=== PATIENT | male | born 1960 | race Caucasian/White ===

== ENCOUNTER 2016-03-31 17:40 | Observation (INO) | payer OTHER ==
[~2016-03-31] VITALS: Ht 175.3 cm; Wt 88.6 kg
[2016-03-31 17:40] VITALS: BP 112/77; PULSE 99; RESP 16; TEMP 98.1; O2SAT 93
[2016-03-31] MEDS ORDERED: HYDR-3516 PO (18:43)
[2016-03-31] MEDS ORDERED: SODIUM CHLORIDE 0.9% FLUSH 5 ML FLUSH IVF PRN (19:15)
--- NOTE | 2016-03-31 19:40 | RADRPT ---
EXAM DATE/TIME: 03/31/2016 19:23 [facility] COMPARISON: No previous studies available for comparison. INDICATIONS : Altered mental status; found unresponsive. RADIATION DOSE: 39.21 CTDIvol (mGy) MEDICAL HISTORY : Hypertension. SURGICAL HISTORY : None. ENCOUNTER: Initial ACUITY: 1 day PAIN SCALE: 0/10 LOCATION: cranial TECHNIQUE: Multiple contiguous axial images were obtained of the head. Using automated exposure control and adj ustment of the mA and/or kV according to patient size, radiation dose was kept as low as reasonably a chievable to obtain optimal diagnostic quality images. FINDINGS: CEREBRUM: The ventricles are normal for age. No evidence of midline shift, mass lesion, hemorrhage or acute in farction. No extra-axial fluid collections are seen. POSTERIOR FOSSA: The cerebellum and brainstem are intact. The 4th ventricle is midline. The cerebellopontine angle i s unremarkable. EXTRACRANIAL: The visualized portion of the orbits is intact. Left parietal scalp contusion SKULL: The calvaria is intact. No evidence of skull fracture. CONCLUSION: No acute intracranial disease. Left parietal scalp contusion Ritchie Fatima MD on March 31, 2016 at 19:37 Board Certified Radiologist. This report was verified electronically.
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
--- NOTE | 2016-03-31 19:46 | RADRPT ---
EXAM DATE/TIME: 03/31/2016 19:23 [facility] COMPARISON: No previous studies available for comparison. INDICATIONS : Altered mental status; found unresponsive. RADIATION DOSE: 23.91 CTDIvol (mGy) MEDICAL HISTORY : Hypertension. SURGICAL HISTORY : None. ENCOUNTER: Initial ACUITY: 1 day PAIN SCALE: 0/10 LOCATION: neck TECHNIQUE: Volumetric scanning of the cervical spine was performed. Multiplanar reconstructions in the sagittal, coronal and oblique axial planes were performed. Using automated exposure control and adjustment o f the mA and/or kV according to patient size, radiation dose was kept as low as reasonably achievable to obtain optimal diagnostic quality images. FINDINGS: VERTEBRAE: Normal vertebral body height. No compression fracture. Multilevel degenerative changes ALIGNMENT: No evidence of subluxation. Facets are well aligned. CONCLUSION: Degenerative changes without fracture. Ritchie Fatima MD on March 31, 2016 at 19:43 Board Certified Radiologist. This report was verified electronically.
[2016-03-31 20:26] LABS: APTT (PATIENT) 24.3 SEC (24.3-30.1); INTERNATIONAL NORMALIZED RATIO 1.2 RATIO; PROTHROMBIN TIME - PATIENT 12.8 SEC (9.8-11.6)
[2016-03-31 20:28] LABS: AUTOMATED NEUTROPHIL # 5.4 TH/MM3 (1.8-7.7); BASOPHIL # 0.1 TH/MM3 (0-0.2); BASOPHIL % 1.2 % (0.0-2.0); EOSINOPHIL # 0.2 TH/MM3 (0-0.4); EOSINOPHIL % 2.1 % (0.0-4.0); HEMATOCRIT 37.5 % (39.0-51.0); HEMO FLAGS DIFF FINAL; LYMPHOCYTE # 2.2 TH/MM3 (1.0-4.8); MEAN CELL VOLUME 102.4 FL (80.0-100.0); MEAN CORPUSCULAR HEMOGLOBIN 35.3 PG (27.0-34.0); MEAN CORPUSCULAR HGB CONC 34.5 % (32.0-36.0); MONO % 9.3 % (0.0-8.0); NEUT % 62.4 % (16.0-70.0); PLATELET COUNT 142 TH/MM3 (150-450); RED BLOOD COUNT 3.67 MIL/MM3 (4.50-5.90); RED CELL DISTRIBUTION WIDTH 14.7 % (11.6-17.2); WHITE BLOOD COUNT 8.7 TH/MM3 (4.0-11.0)
--- NOTE | 2016-03-31 20:36 | PD ---
Physical Exam Time Seen by Provider: 20:20 Narrative I removed the zacarias from the posterior scalp. Data Data Last Documented VS Vital Signs Date Time Temp Pulse Resp B/P Pulse Ox O2 Delivery O2 Flow Rate FiO2 03/31/16 22:22 16 97 Room Air 03/31/16 22:22 83 03/31/16 17:40 98.1 112/77 Orders Basic Metabolic Panel (Bmp) (03/31/16 19:02) Complete Blood Count With Diff (03/31/16 19:02) Prothrombin Time / Inr (Pt) (03/31/16 19:02) Act Partial Throm Time (Ptt) (03/31/16 19:02) Alcohol (Ethanol) (03/31/16 19:02) Ct Brain W/O Iv Contrast(Rout) (03/31/16 19:02) Ct Cerv Spine W/O Contrast (03/31/16 19:02) Apply Cervical Collar (03/31/16 19:02) Iv Access Insert/Monitor (03/31/16 19:02) Ecg Monitoring (03/31/16 19:02) Oximetry (03/31/16 19:02) Sodium Chloride 0.9% Flush (Ns Flush) (03/31/16 19:15) Acetaminophen (Tylenol) (03/31/16 22:30) Labs Laboratory Tests Test 03/31/16 19:40 White Blood Count 8.7 TH/MM3 Red Blood Count 3.67 MIL/MM3 Hemoglobin 13.0 GM/DL Hematocrit 37.5 % Mean Corpuscular Volume 102.4 FL Mean Corpuscular Hemoglobin 35.3 PG Mean Corpuscular Hemoglobin 34.5 % Concent Red Cell Distribution Width 14.7 % Platelet Count 142 TH/MM3 Mean Platelet Volume 7.9 FL Neutrophils (%) (Auto) 62.4 % Lymphocytes (%) (Auto) 25.0 % Monocytes (%) (Auto) 9.3 % Eosinophils (%) (Auto) 2.1 % Basophils (%) (Auto) 1.2 % Neutrophils # (Auto) 5.4 TH/MM3 Lymphocytes # (Auto) 2.2 TH/MM3 Monocytes # (Auto) 0.8 TH/MM3 Eosinophils # (Auto) 0.2 TH/MM3 Basophils # (Auto) 0.1 TH/MM3 CBC Comment DIFF FINAL Differential Comment Prothrombin Time 12.8 SEC Prothromb Time International 1.2 RATIO Ratio Activated Partial 24.3 SEC Thromboplast Time Sodium Level 145 MEQ/L Potassium Level 3.2 MEQ/L Chloride Level 106 MEQ/L Carbon Dioxide Level 27.6 MEQ/L Anion Gap 11 MEQ/L Blood Urea Nitrogen 3 MG/DL Creatinine 0.64 MG/DL Estimat Glomerular Filtration 129 ML/MIN Rate Random Glucose 92 MG/DL Calcium Level 7.9 MG/DL Ethyl Alcohol Level 193 MG/DL [facility] Supervised Visit with MARY CARMEN: Yes Narrative Course I removed the zacarias from the posterior scalp for Dr. Lopez. The stapes were intact to one side of the wound. The wound is open with a hematoma present. [place] removed. Wound cleaned with NS and dressing applied. Patient tolerated well. 2214: Head CT and cervical spine CT unremarkable. Tylenol ordered for complaint of headache. SaO2 recheck 97%. Labs reviewed: Potassium 3.2. 40 MEQ potassium chloride ordered. Ethyl alcohol 193. Patient is medically cleared at this time. He will be given time to sleep it off and come clinically sober. Patient will be reevaluated later time and discharged home when clinically sober. Diagnosis Primary Impression: Alcohol intoxication Qualified Code: F10.120 - Alcohol intoxication, uncomplicated Referrals: Primary Care Physician Patient Instructions: Abuse of Alcohol (ED), Alcohol Dependence (ED), Alcohol Intoxication (ED), General Instructions Additional Instruction: Stop drinking alcohol Follow-up with her primary care provider Return to the emergency department immediately with worsening of symptoms Med/Other Pt SpecificInfo: No Meds Exist/No RX given Disposition: 01 DISCHARGE HOME Condition: Stable Shawnee Marie Mar 31, 2016 20:36
[2016-03-31 20:50] LABS: BICARBONATE 27.6 MEQ/L (21.0-32.0); POTASSIUM 3.2 MEQ/L (3.5-5.1)
[2016-03-31 22:22] VITALS: PULSE 83; RESP 16; O2SAT 97
[2016-03-31] MEDS ORDERED: ACETAMINOPHEN 325 MG TAB PO ONE (22:30)
[2016-04-01] VITALS (7 sets, daily range): BP systolic 104–134; BP diastolic 60–78; PULSE 75–113; RESP 14–20; O2SAT 94–99
[2016-04-01] MEDS ORDERED: ACETAMINOPHEN 500 MG CPLT PO ONE (10:30)
[2016-04-01] MEDS ORDERED: MECLIZINE HCL 25 MG TAB PO ONE (10:30)
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
[2016-04-01] MEDS ORDERED: LORazepam 2 MG TAB PO PRN (13:30)
[2016-04-01] MEDS ORDERED: ACETAMINOPHEN 325 MG TAB PO PRN (13:30)
[2016-04-01] MEDS ORDERED: LORazepam 2 MG/ML VIAL IV PUSH PRN ×2 (13:30)
[2016-04-01] MEDS ORDERED: HALOPERIDOL LACTATE 5 MG/ML AMP IM PRN (13:30)
[2016-04-01] MEDS ORDERED: NALOXONE HCL 0.4 MG/ML AMP IV PRN (13:30)
[2016-04-01] MEDS ORDERED: SODIUM CHLORIDE 0.9% FLUSH 5 ML FLUSH FLUSH PRN (13:30)
[2016-04-01] MEDS ORDERED: FLUMAZENIL 1 MG/10 ML VIAL IV PUSH PRN (13:30)
[2016-04-01] MEDS ORDERED: BISACODYL 10 MG SUPP PR PRN (13:30)
[2016-04-01] MEDS ORDERED: MAGNESIUM HYDROXIDE SUSP 30 ML CUP PO PRN (14:00)
[2016-04-01] MEDS ORDERED: ONDANSETRON HCL 4 MG/2 ML VIAL IVP PRN (14:00)
[2016-04-01] MEDS ORDERED: SENNOSIDES 8.6 MG TAB PO PRN (14:00)
[2016-04-01] MEDS: SODIUM CHLOR 0.9% 1000 ML INJ 1,000 ML IV SCH ×2 (14:35→23:25)
[2016-04-01] MEDS: DOCUSATE SODIUM 100 MG CAP PO SCH ×2 (14:35→23:48)
[2016-04-01] MEDS ORDERED: POTASSIUM CHLORIDE 10 MEQ CONTROLLED RELEASE TAB PO ONE (15:00)
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
[2016-04-01] MEDS: LORazepam 2 MG/ML VIAL IV PUSH PRN (15:14)
[2016-04-01 15:19] LABS: BASOPHIL # 0.1 TH/MM3 (0-0.2); BASOPHIL % 1.7 % (0.0-2.0); EOSINOPHIL # 0.1 TH/MM3 (0-0.4); EOSINOPHIL % 1.4 % (0.0-4.0); HEMATOCRIT 29.8 % (39.0-51.0); LYMPH % 32.5 % (9.0-44.0); LYMPHOCYTE # 1.3 TH/MM3 (1.0-4.8); MEAN CELL VOLUME 101.8 FL (80.0-100.0); MEAN CORPUSCULAR HEMOGLOBIN 35.9 PG (27.0-34.0); MEAN CORPUSCULAR HGB CONC 35.3 % (32.0-36.0); NEUT % 50.4 % (16.0-70.0); PLATELET COUNT 86 TH/MM3 (150-450); RED BLOOD COUNT 2.93 MIL/MM3 (4.50-5.90); RED CELL DISTRIBUTION WIDTH 14.8 % (11.6-17.2); WHITE BLOOD COUNT 3.9 TH/MM3 (4.0-11.0)
[2016-04-01 15:25] LABS: HEMO FLAGS AUTO DIFF
[2016-04-01 15:31] LABS: BICARBONATE 33.9 MEQ/L (21.0-32.0); MAGNESIUM 1.4 MG/DL (1.5-2.5); POTASSIUM 3.2 MEQ/L (3.5-5.1)
[2016-04-01 16:35] LABS: BANDS 5 % (0-6); EOSINOPHILS 2 % (0-4); METAMYELOCYTES 1 % (0-1); NEUTROPHIL # MANUAL DIFF 2.5 TH/MM3 (1.8-7.7); POLYS (SEG NEUTROPHILS) 59 % (16-70); WBC DIFF SAMPLE 100
[2016-04-01 16:36] LABS: PLATELET ESTIMATE SMEAR LOW (NORMAL); PLATELET MORPHOLOGY NORMAL (NORMAL); SCAN/DIFF FINAL DIFF MANUAL
--- NOTE | 2016-04-01 16:41 | RADRPT ---
EXAM DATE/TIME: 04/01/2016 16:00 [facility] COMPARISON: CT BRAIN W/O CONTRAST, March 31, 2016, 19:23. INDICATIONS : CVA. Inability to ambulate. MEDICAL HISTORY : Hypertension. SURGICAL HISTORY : Left hand. ENCOUNTER: Subsequent ACUITY: 2 day PAIN SCORE: 0/10 LOCATION: head. TECHNIQUE: Multiplanar, multisequence MRI of the brain was performed without contrast. FINDINGS: CEREBRUM: The ventricles are normal for age. No evidence of midline shift, mass lesion, hemorrhage or acute in farction. No extraaxial fluid collections are seen. The pituitary gland and suprasellar cistern are normal in configuration. WHITE MATTER: No significant signal abnormalities are seen in the white matter. POSTERIOR FOSSA: The cerebellum and brainstem are intact. The 4th ventricle is midline. The cerebellopontine angle is unremarkable. The cerebellar tonsils are normal in position. DIFFUSION IMAGING: No focal areas of restricted diffusion are seen. No evidence of acute infarction. EXTRACRANIAL: The visualized portions of the orbits and paranasal sinuses are unremarkable. Left parietal scalp hem atoma. CONCLUSION: 1. No acute intracranial abnormality. 2. Left parietal scalp hematoma. Ritchie Fatima MD on April 01, 2016 at 16:36 Board Certified Radiologist. This report was verified electronically.
[2016-04-01] MEDS: SODIUM CHLORIDE 0.9% FLUSH 5 ML FLUSH FLUSH SCH (23:48)
[2016-04-01] MEDS: MECLIZINE HCL 25 MG TAB PO SCH (23:48)
[2016-04-02] VITALS (8 sets, daily range): BP systolic 94–122; BP diastolic 52–86; PULSE 86–102; RESP 14–18; TEMP 98; O2SAT 95–98
[2016-04-02] MEDS: MECLIZINE HCL 25 MG TAB PO SCH ×3 (05:57→23:08)
[2016-04-02] MEDS ORDERED: POTASSIUM CHLORIDE 20 MEQ CONTROLLED RELEASE TAB PO ONE (08:00)
[2016-04-02] MEDS ORDERED: MAGNESIUM SULFATE 1 GM PREMIX 100 ML IV ONE (08:00)
[2016-04-02] MEDS: DOCUSATE SODIUM 100 MG CAP PO SCH ×2 (08:31→23:09)
[2016-04-02] MEDS: THIAMINE HCL 100 MG TAB PO SCH (08:31)
[2016-04-02] MEDS: MULTIVITAMINS/MINERALS THERAPEUTIC TAB PO SCH (08:31)
[2016-04-02] MEDS: FOLIC ACID 1 MG TAB PO SCH (08:31)
[2016-04-02] MEDS: MAGNESIUM OXIDE 400 MG TAB PO SCH ×2 (08:31→23:10)
[2016-04-02] MEDS: SODIUM CHLORIDE 0.9% FLUSH 5 ML FLUSH FLUSH SCH ×2 (08:33→23:09)
[2016-04-02] MEDS: SODIUM CHLOR 0.9% 1000 ML INJ 1,000 ML IV SCH ×2 (08:33→22:57)
--- NOTE | 2016-04-02 11:13 | HHI.PR ---
Subjective Remarks Follow-up for falls. The patient feels tired today. He hasn't gotten out of bed since working with PT yesterday. He lives alone in a one-story dwelling. When asked if he has any numbness, he states that he has numbness in his toes for the past few months, unchanged. He plans to abstain from alcohol. Objective Vitals Vital Signs Date Time Temp Pulse Resp B/P Pulse Ox O2 Delivery O2 Flow Rate FiO2 04/02/16 10:40 91 16 96/69 95 Room Air 04/02/16 07:46 94 16 99/71 98 Room Air 04/02/16 05:58 102 16 104/72 95 Room Air 04/02/16 02:07 88 14 112/76 98 Room Air 04/02/16 01:00 90 16 118/82 96 Room Air 04/02/16 00:05 86 18 122/86 98 Room Air 04/01/16 23:10 90 18 134/78 99 Room Air 04/01/16 22:15 92 16 110/76 98 Room Air 04/01/16 17:17 93 14 104/73 97 Room Air 04/01/16 15:21 88 116/73 89 114/77 91 120/77 04/01/16 15:00 89 20 124/77 94 Room Air Result Diagram: 04/01/16 1440 04/01/16 1440 Imaging Last Impressions Brain MRI 04/01/16 0000 Signed Impressions: Service Date/Time: March 16:00 - CONCLUSION: 1. No acute intracranial abnormality. 2. Left parietal scalp hematoma. Ritchie Fatima MD Head CT 03/31/161901 Signed Impressions: Service Date/Time: Thursday, March 31, 2016 19:23 - CONCLUSION: No acute intracranial disease. Left parietal scalp contusion Ritchie Fatima MD Cervical Spine CT 03/31/161901 Signed Impressions: Service Date/Time: Thursday, March 31, 2016 19:23 - CONCLUSION: Degenerative changes without fracture. Ritchie Fatima MD Objective Remarks GENERAL: Well-developed well-nourished. In no acute distress. SKIN: Warm and dry. ~2-3 posterior scalp hematoma. HEENT: Normocephalic. Pupils equal and round. Mucous membranes pink and moist. CARDIOVASCULAR: Regular rate and rhythm. No murmur appreciated. RESPIRATORY: No accessory muscle use. Clear to auscultation. Breath sounds equal bilaterally. GASTROINTESTINAL: Abdomen soft, non-tender, nondistended. Bowel sounds x4. MUSCULOSKELETAL: No obvious deformities. No clubbing or cyanosis. No edema. NEUROLOGICAL: Awake and alert. No focal neurological deficits. Moves upper and lower extremities spontaneously. Normal speech. PSYCHIATRIC: Appropriate mood and affect; insight and judgment normal. A/P Problem List: (1) Dizziness ICD Code: R42 Status: Acute (2) Frequent falls ICD Code: R29.6 Status: Acute (3) Gait abnormality ICD Code: R26.9 Status: Acute (4) Alcohol abuse ICD Code: F10.10 Status: Chronic Assessment and Plan 55-year-old male with history of hepatitis C, former IVDU, alcohol abuse, tobacco use, hypertension, presents with dizziness, inability to ambulate, frequent falls. Frequent Falls/Dizziness/Gait Instability: suspect related to snf alcohol use vs possible vertigo. Head CT shows left parietal scalp contusion otherwise unremarkable. Brain MRI continues to show hematoma, but no acute intracranial abnormality. Continue scheduled meclizine. Neuro checks. Fall/seizure precautions. Non-orthostatics. Consulted PT, recommends HHC with supervision vs SNF, weight reevaluation. Monitor on telemetry. IVF. Scalp Hematoma: from fall reported on 03/15/16. Staple removed in the ED. Consulted flatbed stitcher, discussed with, recommended surgery evaluation. Macrocytic anemia: likely secondary to alcohol abuse and folate deficiency. B12 within normal limits. Hemoglobin did drop from 13-10.5 overnight, possibly dilutional component from IVF. Monitor. Hypokalemia: K remains 3.2. Give additional po KCl replacement. Magnesium also deficient, give IV and oral replacement. [facility] Act: for alcohol abuse. Plan to go to [facility] at discharge. Alcohol Abuse: monitor closely for withdrawal. Last beer evening of 03/31/16. Started on thiamine/folate/MV. CIWA protocol with Ativan prn. Tobacco Use: counseled on cessation. Offer nicotine patch if needed. Hepatitis C: chronic, outpatient f/up. DVT Prophylaxis: teds/SCDs Written by Patrick Brennan, acting as scribe for Dr. Marshall on 04/02/16 at 11:13. The documentation accurately reflects the work performed [id number] by me on at 1113 Discharge Planning Case management consulted for assistance with discharge plan. Patrick Brennan Apr 02, 2016 11:13 Pedro Marshall MD Apr 02, 2016 16:54
[2016-04-02 12:18] LABS: AUTOMATED NEUTROPHIL # 1.8 TH/MM3 (1.8-7.7); BASOPHIL % 1.2 % (0.0-2.0); EOSINOPHIL # 0.1 TH/MM3 (0-0.4); EOSINOPHIL % 2.5 % (0.0-4.0); HEMATOCRIT 29.9 % (39.0-51.0); LYMPHOCYTE # 1.5 TH/MM3 (1.0-4.8); MEAN CELL VOLUME 102.4 FL (80.0-100.0); MEAN CORPUSCULAR HEMOGLOBIN 35.7 PG (27.0-34.0); MEAN CORPUSCULAR HGB CONC 34.8 % (32.0-36.0); MONO % 12.6 % (0.0-8.0); NEUT % 45.7 % (16.0-70.0); PLATELET COUNT 88 TH/MM3 (150-450); RED BLOOD COUNT 2.92 MIL/MM3 (4.50-5.90); RED CELL DISTRIBUTION WIDTH 14.6 % (11.6-17.2)
[2016-04-02 12:29] LABS: HEMO FLAGS AUTO DIFF
[2016-04-02 12:51] LABS: BICARBONATE 29.7 MEQ/L (21.0-32.0); POTASSIUM 3.5 MEQ/L (3.5-5.1)
[2016-04-02 13:39] LABS: SCAN/DIFF AUTO DIFF CONFIRMED
[2016-04-02] MEDS: ACETAMINOPHEN 325 MG TAB PO PRN ×2 (14:46→23:34)
--- NOTE | 2016-04-02 15:24 | EKG ---
Date Performed: 04/01/2016 Time Performed: 14:19:02 PTAGE: 55 years EKG: Sinus rhythm LEFT ANTERIOR FASCICULAR BLOCK MODERATE T-WAVE ABNORMALITY, CONSIDER ANTEROLATERAL ISCHEMIA ABNORMAL ECG PREVIOUS TRACING 12/22/2010 11.44.02 Compared to previous tracing, the patient has new ST depr ession, worrisome for ischemia. Clinical correlation requested. DOCTOR: Alaina Canada Interpretating Date/Time 04/02/2016 15:23:04
[2016-04-02] MEDS: LORazepam 2 MG/ML VIAL IV PUSH PRN ×2 (19:21→23:28)
[2016-04-02] MEDS: POTASSIUM PHOSPHATE MONOBASIC 500 MG TAB PO SCH (23:08)
[2016-04-03] VITALS: BP 104/62; PULSE 86; RESP 17; TEMP 98.1; O2SAT 99
[2016-04-03 04:00] VITALS: BP_SYST 100; BP_SYST 98; BP_DIAS 60; BP_DIAS 65; BP_DIAS 70; PULSE 82; RESP 17; TEMP 98.7; O2SAT 95
[2016-04-03] MEDS: MECLIZINE HCL 25 MG TAB PO SCH ×2 (06:36→14:00)
[2016-04-03] MEDS: LORazepam 1 MG TAB PO PRN ×2 (06:36→09:26)
[2016-04-03] MEDS: ACETAMINOPHEN 325 MG TAB PO PRN ×2 (06:38→09:26)
[2016-04-03 08:25] VITALS: BP_SYST 104; BP_SYST 87; BP_SYST 93; BP_DIAS 60; BP_DIAS 64; BP_DIAS 74; PULSE 70; RESP 18; TEMP 98.2; O2SAT 96
[2016-04-03] MEDS: SODIUM CHLORIDE 0.9% FLUSH 5 ML FLUSH FLUSH SCH ×2 (09:00→20:52)
[2016-04-03] MEDS: DOCUSATE SODIUM 100 MG CAP PO SCH ×2 (09:18→20:52)
[2016-04-03] MEDS: THIAMINE HCL 100 MG TAB PO SCH (09:18)
[2016-04-03] MEDS: FOLIC ACID 1 MG TAB PO SCH (09:19)
[2016-04-03] MEDS: MAGNESIUM OXIDE 400 MG TAB PO SCH ×2 (09:19→20:52)
[2016-04-03] MEDS: MULTIVITAMINS/MINERALS THERAPEUTIC TAB PO SCH (09:19)
[2016-04-03] MEDS: POTASSIUM PHOSPHATE MONOBASIC 500 MG TAB PO SCH ×2 (09:19→20:51)
[2016-04-03] MEDS: LORazepam 2 MG/ML VIAL IV PUSH PRN ×2 (09:32→20:52)
[2016-04-03 12:04] VITALS: BP_SYST 133; BP_SYST 97; BP_SYST 98; BP_DIAS 52; BP_DIAS 56; BP_DIAS 72; PULSE 72; PULSE 85; RESP 16; TEMP 96.8; O2SAT 100; O2SAT 95
--- NOTE | 2016-04-03 13:07 | HHI.PR ---
Subjective Remarks Follow-up for falls. The patient continues reported dizziness, but says it has improved. He complains of headache and is asking for something for pain. Still with some bleeding from head hematoma. Hasn't been out of bed today. Objective Vitals Vital Signs Date Time Temp Pulse Resp B/P Pulse Ox O2 Delivery O2 Flow Rate FiO2 04/03/16 12:04 96.8 72 16 46/72 100 97/52 98/56 04/03/16 08:25 98.2 70 18 93/60 96 104/74 87/64 04/03/16 04:00 98.7 82 17 98/65 95 100/70 98/60 04/03/16 00:00 98.1 86 17 104/62 99 04/02/16 20:00 98.0 87 17 102/60 97 04/02/16 14:38 96 16 94/52 95 Room Air I/O 04/02/16 04/02/16 04/02/16 04/03/16 04/03/16 04/03/16 07:00 15:00 23:00 07:00 15:00 23:00 Intake Total 120 ml 120 ml Output Total 400 ml 650 ml Balance -280 ml -530 ml Intake Oral 120 ml 120 ml Output Urine Total 400 ml 650 ml Result Diagram: 04/02/16 1118 04/02/16 1118 Imaging Last Impressions Brain MRI 04/01/16 0000 Signed Impressions: Service Date/Time: March 16:00 - CONCLUSION: 1. No acute intracranial abnormality. 2. Left parietal scalp hematoma. Ritchie Fatima MD Head CT 03/31/161901 Signed Impressions: Service Date/Time: Thursday, March 31, 2016 19:23 - CONCLUSION: No acute intracranial disease. Left parietal scalp contusion Ritchie Fatima MD Cervical Spine CT 03/31/161901 Signed Impressions: Service Date/Time: Thursday, March 31, 2016 19:23 - CONCLUSION: Degenerative changes without fracture. Ritchie Fatima MD Objective Remarks GENERAL: Well-developed well-nourished. In no acute distress. SKIN: Warm and dry. ~2-3 cm posterior scalp hematoma. HEENT: Normocephalic. Pupils equal and round. Mucous membranes pink and moist. CARDIOVASCULAR: Regular rate and rhythm. No murmur appreciated. RESPIRATORY: No accessory muscle use. Clear to auscultation. Breath sounds equal bilaterally. GASTROINTESTINAL: Abdomen soft, non-tender, nondistended. Bowel sounds x4. MUSCULOSKELETAL: No obvious deformities. No clubbing or cyanosis. No edema. NEUROLOGICAL: Awake and alert. No focal neurological deficits. Moves upper and lower extremities spontaneously. Normal speech. PSYCHIATRIC: Appropriate mood and affect; insight and judgment normal. A/P Problem List: (1) Dizziness ICD Code: R42 Status: Acute (2) Frequent falls ICD Code: R29.6 Status: Acute (3) Gait abnormality ICD Code: R26.9 Status: Acute (4) Alcohol abuse ICD Code: F10.10 Status: Chronic Assessment and Plan 55-year-old male with history of hepatitis C, former IVDU, alcohol abuse, tobacco use, hypertension, presents with dizziness, inability to ambulate, frequent falls. Frequent Falls/Dizziness/Gait Instability: suspect related to medical terminologist alcohol use vs possible vertigo. Head CT shows left parietal scalp contusion otherwise unremarkable. Brain MRI continues to show hematoma, but no acute intracranial abnormality. Continue scheduled meclizine. Neuro checks. Fall/seizure precautions. Non-orthostatic. Consulted PT, recommends HHC with supervision vs SNF, await reevaluation. Monitor on telemetry. Scalp Hematoma: from fall reported on 03/15/16. Staple removed in the ED. Consulted fisher spear, recommended surgery evaluation. Neurosurgery consulted. Tramadol as needed for pain. Macrocytic anemia: likely secondary to alcohol abuse and folate deficiency. B12 within normal limits. Hemoglobin stable at 10.5/10.4. Monitor. Electrolyte derangement: K 3.2, given oral potassium replacement, now 3.5. Magnesium also deficient, given IV and oral replacement, now 2.0. Phosphorus low at 2.3, started oral replacement. Follow-up electrolytes in the a.m. [facility] Act: for alcohol abuse. Plan to go to [facility] at discharge. Alcohol Abuse: monitor closely for withdrawal. Last beer evening of 03/31/16. Started on thiamine/folate/MV. CIWA protocol with Ativan prn. Tobacco Use: counseled on cessation. Offer nicotine patch if needed. Hepatitis C: chronic, outpatient f/up. DVT Prophylaxis: teds/SCDs Written by Patrick Brennan, acting as scribe for Dr. Marshall on 04/03/16 at 13:06. The documentation accurately reflects the work performed [id number] by me on at 1306 Discharge Planning Case management consulted for assistance with discharge plan. Patrick Brennan Apr 03, 2016 13:07 Pedro Marshall MD Apr 03, 2016 16:24
[2016-04-03 16:34] VITALS: BP_SYST 100; BP_SYST 107; BP_DIAS 64; BP_DIAS 74; PULSE 61; RESP 16; TEMP 97; O2SAT 95
[2016-04-03 20:00] VITALS: BP_SYST 100; BP_SYST 113; BP_SYST 99; BP_DIAS 57; BP_DIAS 68; BP_DIAS 79; PULSE 104; PULSE 71; RESP 20; TEMP 98.3; O2SAT 96
[2016-04-03] MEDS: traMADol HCL 50 MG TAB PO PRN (20:51)
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
[2016-04-04] VITALS (8 sets, daily range): BP systolic 96–117; BP diastolic 50–75; PULSE 75–89; RESP 18–20; TEMP 97.1–99.1; O2SAT 95–97
[2016-04-04 06:48] LABS: AUTOMATED NEUTROPHIL # 2.6 TH/MM3 (1.8-7.7); BASOPHIL # 0.1 TH/MM3 (0-0.2); EOSINOPHIL # 0.2 TH/MM3 (0-0.4); EOSINOPHIL % 3.8 % (0.0-4.0); HEMATOCRIT 30.1 % (39.0-51.0); HEMO FLAGS DIFF FINAL; LYMPH % 32.1 % (9.0-44.0); LYMPHOCYTE # 1.6 TH/MM3 (1.0-4.8); MEAN CELL VOLUME 104.7 FL (80.0-100.0); MEAN CORPUSCULAR HEMOGLOBIN 36.6 PG (27.0-34.0); NEUT % 53.1 % (16.0-70.0); PLATELET COUNT 120 TH/MM3 (150-450); RED BLOOD COUNT 2.88 MIL/MM3 (4.50-5.90); RED CELL DISTRIBUTION WIDTH 14.8 % (11.6-17.2)
[2016-04-04 07:09] LABS: BICARBONATE 28.3 MEQ/L (21.0-32.0); MAGNESIUM 1.8 MG/DL (1.5-2.5); POTASSIUM 3.4 MEQ/L (3.5-5.1)
--- NOTE | 2016-04-04 08:20 | RADRPT ---
EXAM DATE/TIME: 04/04/2016 07:31 [facility] COMPARISON: No previous studies available for comparison. INDICATIONS : Myelopathy. Bilateral upper extremity weakness s/p fall with injury to back of head. MEDICAL HISTORY : Hypertension. SURGICAL HISTORY : Hand surgery. ENCOUNTER: Subsequent ACUITY: 3 day PAIN SCORE: 0/10 LOCATION: [place] TECHNIQUE: Multiplanar, multisequence MRI examination of the cervical spine was performed. FINDINGS: By MRI, the marrow signal of the cervical vertebrae is homogeneous. Cerebellar tonsils are in normal anatomic position. Signal intensity in the cervical cord appears normal. C2-C3: The thecal sac has a normal configuration. There is no evidence of disc herniation or spinal canal s tenosis. The neural foramina are patent bilaterally. C3-C4: The thecal sac has a normal configuration. There is no evidence of disc herniation or spinal canal s tenosis. The neural foramina are patent bilaterally. C4-C5: Very mild interspace ridging is present without significant spinal stenosis. Minimal bilateral neura l foraminal encroachment is evident. C5-C6: Very mild uncinate ridging is present. There is minimal left-sided neural foraminal encroachment. C6-C7: Mild uncinate ridging is present with minimal bilateral neural foraminal encroachment. C7-T1: The thecal sac has a normal configuration. There is no evidence of disc herniation or spinal canal s tenosis. The neural foramina are patent bilaterally. CONCLUSION: Mild degenerative changes in the cervical spine. I do not see significant cord compression or signal in the cervical cord as a cause of myelopathy. Dell Tang MD FACR on April 04, 2016 at 8:11 Board Certified Radiologist. This report was verified electronically.
[2016-04-04] MEDS: MAGNESIUM OXIDE 400 MG TAB PO SCH ×2 (09:13→20:24)
[2016-04-04] MEDS: MULTIVITAMINS/MINERALS THERAPEUTIC TAB PO SCH (09:13)
[2016-04-04] MEDS: THIAMINE HCL 100 MG TAB PO SCH (09:13)
[2016-04-04] MEDS: DOCUSATE SODIUM 100 MG CAP PO SCH ×2 (09:13→20:24)
[2016-04-04] MEDS: POTASSIUM PHOSPHATE MONOBASIC 500 MG TAB PO SCH ×2 (09:13→20:23)
[2016-04-04] MEDS: FOLIC ACID 1 MG TAB PO SCH (09:13)
[2016-04-04] MEDS: SODIUM CHLORIDE 0.9% FLUSH 5 ML FLUSH FLUSH SCH ×2 (09:14→20:24)
[2016-04-04] MEDS: traMADol HCL 50 MG TAB PO PRN ×2 (09:14→20:23)
[2016-04-04] MEDS ORDERED: POTASSIUM CHLORIDE 20 MEQ CONTROLLED RELEASE TAB PO ONE (09:15)
[2016-04-04] MEDS: LORazepam 2 MG/ML VIAL IV PUSH PRN (09:15)
[2016-04-04] MEDS ORDERED: PNEUMOCOCCAL POLYVALENT INJ 25 MCG/0.5 ML SYR IM ONE (10:00)
[2016-04-04] MEDS ORDERED: INFLUENZA VIRUS VACCINE (QUADRIVALENT) 0.5 ML SYR IM ONE (10:00)
--- NOTE | 2016-04-04 11:00 | HHI.PR ---
Subjective Remarks Follow-up for falls. Patient slept well overnight. The patient denies any numbness or weakness. He was able to ambulate to the restroom. He states his dizziness is improved and is not bad if he stands up and walks slowly. Objective Vitals Vital Signs Date Time Temp Pulse Resp B/P Pulse Ox O2 Delivery O2 Flow Rate FiO2 04/04/16 10:18 16 04/04/16 07:25 79 04/04/16 07:15 97.3 77 18 111/68 96 104/70 103/75 04/04/16 04:00 99.1 75 20 100/57 96 117/75 98/63 04/04/16 00:00 98.1 89 20 101/60 95 109/73 105/68 04/03/16 20:00 98.3 104 20 99/57 96 113/79 100/68 04/03/16 20:00 71 04/03/16 16:34 97.0 61 16 100/64 95 97/52 107/74 04/03/16 12:04 96.8 72 16 46/72 100 97/52 98/56 I/O 04/03/16 04/03/16 04/03/16 04/04/16 04/04/16 04/04/16 07:00 15:00 23:00 07:00 15:00 23:00 Intake Total 120 ml 720 ml 240 ml 120 ml Output Total 650 ml 500 ml 1000 ml 350 ml Balance -530 ml 220 ml -760 ml -230 ml Intake Oral 120 ml 720 ml 240 ml 120 ml Output Urine Total 650 ml 500 ml 1000 ml 350 ml # Bowel Movements 0 0 Result Diagram: 04/04/16 0611 04/04/16 0611 Imaging Last Impressions Brain MRI 04/01/16 0000 Signed Impressions: Service Date/Time: March 16:00 - CONCLUSION: 1. No acute intracranial abnormality. 2. Left parietal scalp hematoma. Ritchie Fatima MD Head CT 03/31/161901 Signed Impressions: Service Date/Time: Thursday, March 31, 2016 19:23 - CONCLUSION: No acute intracranial disease. Left parietal scalp contusion Ritchie Fatima MD Cervical Spine CT 03/31/161901 Signed Impressions: Service Date/Time: Thursday, March 31, 2016 19:23 - CONCLUSION: Degenerative changes without fracture. Ritchie Fatima MD Objective Remarks GENERAL: Well-developed well-nourished. In no acute distress. SKIN: Warm and dry. ~2-3 cm posterior scalp hematoma. HEENT: Normocephalic. Pupils equal and round. Mucous membranes pink and moist. CARDIOVASCULAR: Regular rate and rhythm. No murmur appreciated. RESPIRATORY: No accessory muscle use. Clear to auscultation. Breath sounds equal bilaterally. GASTROINTESTINAL: Abdomen soft, non-tender, nondistended. Bowel sounds x4. MUSCULOSKELETAL: No obvious deformities. No clubbing or cyanosis. No edema. NEUROLOGICAL: Awake and alert. No focal neurological deficits. Moves upper and lower extremities spontaneously. Normal speech. PSYCHIATRIC: Appropriate mood and affect; insight and judgment normal. A/P Problem List: (1) Dizziness ICD Code: R42 Status: Acute (2) Frequent falls ICD Code: R29.6 Status: Acute (3) Gait abnormality ICD Code: R26.9 Status: Acute (4) Alcohol abuse ICD Code: F10.10 Status: Chronic Assessment and Plan 55-year-old male with history of hepatitis C, former IVDU, alcohol abuse, tobacco use, hypertension, presents with dizziness, inability to ambulate, frequent falls. Frequent Falls/Dizziness/Gait Instability: suspect related to fpc alcohol use vs possible vertigo. Head CT shows left parietal scalp contusion otherwise unremarkable. Brain MRI continues to show hematoma, but no acute intracranial abnormality. Cervical MRI with mild degenerative changes, chronic. Continue scheduled meclizine. Neuro checks. Fall/seizure precautions. Non-orthostatic. Consulted PT, recommends [facility] with supervision vs SNF, await reevaluation. Monitor on telemetry. Scalp Hematoma: from fall reported on 03/15/16. Staple removed in the ED. Consulted lube worker, recommended surgery evaluation. Neurosurgery consulted , recommends MRI C-spine and plastic surgery evaluation secondary to significant skin defect. Tramadol as needed for pain. Macrocytic anemia: likely secondary to alcohol abuse and folate deficiency. B12 within normal limits. Hemoglobin stable at 10.5/10.4. Monitor. Electrolyte derangement: K 3.2, given oral potassium replacement, now 3.5. Magnesium also deficient, given IV and oral replacement, now 2.0. Phosphorus low at 2.3, started oral replacement. 04/04 Follow-up electrolytes show potassium 3.4, otherwise normal limits, give additional potassium replacement. [facility] Act: for alcohol abuse. Plan to go to [facility] at discharge. Alcohol Abuse: monitor closely for withdrawal. Last beer evening of 03/31/16. Started on thiamine/folate/MV. CIWA protocol with Ativan prn. Tobacco Use: counseled on cessation. Offer nicotine patch if needed. Hepatitis C: chronic, outpatient f/up. DVT Prophylaxis: teds/SCDs Written by Patrick Brennan, acting as scribe for Dr. Marshall on 04/04/16 at 11:00. The documentation accurately reflects the work performed [id number] by me on at 1100 Discharge Planning Case management consulted for assistance with discharge plan. Patrick Brennan Apr 04, 2016 11:00 Pedro Marshall MD Apr 04, 2016 13:54
[2016-04-04] MEDS: LORazepam 1 MG TAB PO PRN (20:24)
[2016-04-05] VITALS (8 sets, daily range): BP systolic 80–117; BP diastolic 49–71; PULSE 67–86; RESP 18–20; TEMP 97.1–99.8; O2SAT 95–97
[2016-04-05] MEDS: traMADol HCL 50 MG TAB PO PRN ×2 (07:10→23:21)
[2016-04-05] MEDS: THIAMINE HCL 100 MG TAB PO SCH (09:04)
[2016-04-05] MEDS: FOLIC ACID 1 MG TAB PO SCH (09:04)
[2016-04-05] MEDS: MULTIVITAMINS/MINERALS THERAPEUTIC TAB PO SCH (09:04)
[2016-04-05] MEDS: DOCUSATE SODIUM 100 MG CAP PO SCH ×2 (09:04→20:32)
[2016-04-05] MEDS: MAGNESIUM OXIDE 400 MG TAB PO SCH ×2 (09:04→20:32)
[2016-04-05] MEDS: POTASSIUM PHOSPHATE MONOBASIC 500 MG TAB PO SCH ×2 (09:05→20:37)
[2016-04-05] MEDS: LORazepam 1 MG TAB PO PRN (09:05)
--- NOTE | 2016-04-05 13:04 | HHI.PR ---
Subjective Remarks Follow-up scalp hematoma. Discussed with plastic surgery will see patient later today. Complains of generalized pain requesting pain medicine adjustment takes Lorcet 10 mg at home Objective Vitals Vital Signs Date Time Temp Pulse Resp B/P Pulse Ox O2 Delivery O2 Flow Rate FiO2 04/05/16 12:00 97.6 79 18 91/55 97 96/59 82/53 04/05/16 08:00 97.1 79 18 102/61 96 100/60 92/61 04/05/16 07:00 73 04/05/16 04:00 99.8 86 20 108/65 95 83/58 94/63 04/05/16 00:00 97.4 82 20 99/55 96 116/68 117/71 04/04/16 23:00 76 04/04/16 20:00 97.1 86 20 117/67 97 117/73 102/50 04/04/16 16:00 97.8 83 18 100/60 96 105/73 105/66 I/O 04/04/16 04/04/16 04/04/16 04/05/16 04/05/16 04/05/16 07:00 15:00 23:00 07:00 15:00 23:00 Intake Total 120 ml 480 ml 360 ml 240 ml Output Total 350 ml 900 ml 1625 ml Balance -230 ml 480 ml -540 ml -1385 ml Intake Oral 120 ml 480 ml 360 ml 240 ml Output Urine Total 350 ml 900 ml 1625 ml # Voids 3 # Bowel Movements 0 0 0 Result Diagram: 04/04/16 0611 04/04/16 0611 Objective Remarks GENERAL: Well-developed well-nourished. In no acute distress. SKIN: Warm and dry. ~2-3 cm posterior scalp hematoma. HEENT: Normocephalic. Pupils equal and round. Mucous membranes pink and moist. CARDIOVASCULAR: Regular rate and rhythm. No murmur appreciated. RESPIRATORY: No accessory muscle use. Clear to auscultation. Breath sounds equal bilaterally. GASTROINTESTINAL: Abdomen soft, non-tender, nondistended. Bowel sounds x4. MUSCULOSKELETAL: No obvious deformities. No clubbing or cyanosis. No edema. NEUROLOGICAL: Awake and alert. No focal neurological deficits. Moves upper and lower extremities spontaneously. Normal speech. PSYCHIATRIC: Appropriate mood and affect; insight and judgment normal. A/P Problem List: (1) Dizziness ICD Code: R42 Status: Acute (2) Frequent falls ICD Code: R29.6 Status: Acute (3) Gait abnormality ICD Code: R26.9 Status: Acute (4) Alcohol abuse ICD Code: F10.10 Status: Chronic Assessment and Plan 55-year-old male with history of hepatitis C, former IVDU, alcohol abuse, tobacco use, hypertension, presents with dizziness, inability to ambulate, frequent falls. Frequent Falls/Dizziness/Gait Instability: suspect related to [facility] alcohol use vs possible vertigo. Head CT shows left parietal scalp contusion otherwise unremarkable. Brain MRI continues to show hematoma, but no acute intracranial abnormality. Cervical MRI with mild degenerative changes, chronic. Continue scheduled meclizine. Neuro checks. Fall/seizure precautions. Non-orthostatic. Consulted PT, recommends HHC with supervision vs SNF, await reevaluation. Monitor on telemetry. Scalp Hematoma: from fall reported on 03/15/16. Staple removed in the ED. Consulted agency service coordinator, recommended surgery evaluation. Neurosurgery consulted , recommends MRI C-spine and plastic surgery evaluation secondary to significant skin defect. Tramadol as needed for pain. Macrocytic anemia: likely secondary to alcohol abuse and folate deficiency. B12 within normal limits. Hemoglobin stable at 10.5/10.4. Monitor. Electrolyte derangement: K 3.2, given oral potassium replacement, now 3.5. Magnesium also deficient, given IV and oral replacement, now 2.0. Phosphorus low at 2.3, started oral replacement. 04/04 Follow-up electrolytes show potassium 3.4, otherwise normal limits, give additional potassium replacement. [facility] Act: for alcohol abuse. Plan to go to [facility] at discharge. Alcohol Abuse: monitor closely for withdrawal. Last beer evening of 03/31/16. Started on thiamine/folate/MV. CIWA protocol with Ativan prn. Tobacco Use: counseled on cessation. Offer nicotine patch if needed. Hepatitis C: chronic, outpatient f/up. DVT Prophylaxis: teds/SCDs Pedro Marshall MD Apr 05, 2016 13:04
[2016-04-05] MEDS: ACETAMINOPHEN/HYDROcodone 325 MG/10 MG TAB PO PRN ×2 (14:09→20:32)
[2016-04-05] MEDS ORDERED: VITA100T2 PO (14:17)
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
[2016-04-05] MEDS: SODIUM HYPOCHLORITE 0.25% 500 ML BTL TOPICAL SCH ×2 (17:50→20:32)
[2016-04-05] MEDS: SODIUM CHLORIDE 0.9% FLUSH 5 ML FLUSH FLUSH SCH (20:33)
[2016-04-06] VITALS (8 sets, daily range): BP systolic 90–109; BP diastolic 51–67; PULSE 69–86; RESP 16–20; TEMP 97.2–98.5; O2SAT 94–98
[2016-04-06] MEDS: ACETAMINOPHEN/HYDROcodone 325 MG/10 MG TAB PO PRN ×4 (02:45→20:28)
[2016-04-06] MEDS: traMADol HCL 50 MG TAB PO PRN ×2 (06:49→23:53)
[2016-04-06] MEDS: THIAMINE HCL 100 MG TAB PO SCH (08:52)
[2016-04-06] MEDS: MAGNESIUM OXIDE 400 MG TAB PO SCH ×2 (08:52→20:27)
[2016-04-06] MEDS: FOLIC ACID 1 MG TAB PO SCH (08:52)
[2016-04-06] MEDS: MULTIVITAMINS/MINERALS THERAPEUTIC TAB PO SCH (08:52)
[2016-04-06] MEDS: DOCUSATE SODIUM 100 MG CAP PO SCH ×2 (08:52→20:27)
[2016-04-06] MEDS: POTASSIUM PHOSPHATE MONOBASIC 500 MG TAB PO SCH ×2 (08:53→20:27)
[2016-04-06] MEDS: SODIUM CHLORIDE 0.9% FLUSH 5 ML FLUSH FLUSH SCH ×2 (09:00→20:28)
[2016-04-06] MEDS: SODIUM HYPOCHLORITE 0.25% 500 ML BTL TOPICAL SCH ×2 (09:00→21:00)
--- NOTE | 2016-04-06 09:45 | HHI.FF ---
Face to Face Verification Diagnosis: (1) Alcohol abuse (2) Dizziness Physical Therapy Order: Evaluate and Treat, Improve ambulation, Strength and gait training Home Health Nursing Order: Medical education Wound care and dressing changes Nursing assessment with vital signs I have seen patient Miguel Ángel Lagos on 04/06/16. My clinical findings support the need for the requested home health care services because: Ltd mobility - disease progression I certify that my clinical findings support that this patient is homebound because: Unsafe to leave home unassisted Need for psychosocial assistance Pedro Marshall MD Apr 06, 2016 09:45
--- NOTE | 2016-04-06 12:41 | HHI.PR ---
Subjective Remarks Follow-up falls. States he lives with his sister who is currently out of town and will be back tomorrow. Discussed with case management Objective Vitals Vital Signs Date Time Temp Pulse Resp B/P Pulse Ox O2 Delivery O2 Flow Rate FiO2 04/06/16 08:00 97.3 86 20 109/67 94 04/06/16 07:00 79 04/06/16 04:00 97.2 71 18 105/59 96 04/06/16 01:00 98.5 78 18 90/53 98 04/05/16 20:00 98.0 67 18 95/54 97 04/05/16 18:00 73 04/05/16 16:00 98.1 75 20 102/64 95 100/61 94/58 I/O 04/05/16 04/05/16 04/05/16 04/06/16 04/06/16 04/06/16 07:00 15:00 23:00 07:00 15:00 23:00 Intake Total 240 ml 480 ml Output Total 1625 ml 900 ml Balance -1385 ml 480 ml -900 ml Intake Oral 240 ml 480 ml Output Urine Total 1625 ml 900 ml # Voids 2 # Bowel Movements 0 1 Result Diagram: 04/04/16 0611 04/04/16 0611 Objective Remarks GENERAL: Well-developed well-nourished. In no acute distress. SKIN: Warm and dry. ~2-3 cm posterior scalp wound with no signs of infection HEENT: Normocephalic. Pupils equal and round. Mucous membranes pink and moist. CARDIOVASCULAR: Regular rate and rhythm. No murmur appreciated. RESPIRATORY: No accessory muscle use. Clear to auscultation. Breath sounds equal bilaterally. GASTROINTESTINAL: Abdomen soft, non-tender, nondistended. Bowel sounds x4. MUSCULOSKELETAL: No obvious deformities. No clubbing or cyanosis. No edema. NEUROLOGICAL: Awake and alert. No focal neurological deficits. Moves upper and lower extremities spontaneously. Normal speech. PSYCHIATRIC: Appropriate mood and affect; insight and judgment normal. Procedures None A/P Problem List: (1) Dizziness ICD Code: R42 Status: Acute (2) Frequent falls ICD Code: R29.6 Status: Acute (3) Gait abnormality ICD Code: R26.9 Status: Acute (4) Alcohol abuse ICD Code: F10.10 Status: Chronic Assessment and Plan 55-year-old male with history of hepatitis C, former IVDU, alcohol abuse, tobacco use, hypertension, presents with dizziness, inability to ambulate, frequent falls. Frequent Falls/Dizziness/Gait Instability: suspect related to payroll and benefits coordinator alcohol use vs possible vertigo. Head CT shows left parietal scalp contusion otherwise unremarkable. Brain MRI continues to show hematoma, but no acute intracranial abnormality. Cervical MRI with mild degenerative changes, chronic. Continue scheduled meclizine. Neuro checks. Fall/seizure precautions. Non-orthostatic. Consulted PT, recommends HHC with supervision vs SNF. Patient lives with his sister. Monitor on telemetry. Scalp Hematoma: from fall reported on 03/15/16. Staple removed in the ED. Consulted integrated circuit layout designer, recommended surgery evaluation. Neurosurgery consulted , recommends MRI C-spine and plastic surgery evaluation secondary to significant skin defect. Tramadol as needed for pain. Plastic surgery recommended wound healing by secondary intention. Wound care. Macrocytic anemia: likely secondary to alcohol abuse and folate deficiency. B12 within normal limits. Hemoglobin stable at 10.5/10.4. Monitor. Electrolyte derangement: K 3.2, given oral potassium replacement, now 3.5. Magnesium also deficient, given IV and oral replacement, now 2.0. Phosphorus low at 2.3, started oral replacement. [place] Act: for alcohol abuse. Plan to go to [facility] at discharge will clarify with case management. Alcohol Abuse: monitor closely for withdrawal. Last beer evening of 03/31/16. Started on thiamine/folate/MV. CIWA protocol with Ativan prn. Tobacco Use: counseled on cessation. Offer nicotine patch if needed. Hepatitis C: chronic, outpatient f/up. DVT Prophylaxis: teds/SCDs Discharge Planning Stable for discharge Pedro Marshall MD Apr 06, 2016 12:41
[2016-04-06] MEDS ORDERED: DAKINSHST TOPICAL (13:24)
--- NOTE | 2016-04-06 13:25 | HHI.DCPOC ---
Discharge Care Plan Diagnosis: (1) Alcohol abuse (2) Dizziness (3) Frequent falls Your Health Problems Are: Difficulty with ADL Exercise Tolerance Goals to Promote Your Health * To prevent worsening of your condition and complications * To maintain your health at the optimal level Directions to Meet Your Goals Take your medications as prescribed Follow your dietary instruction Follow activity as directed Keep your appointments as scheduled Take your immunizations and boosters as scheduled If your symptoms worsen call your PCP, if no PCP go to Urgent Care Center or Emergency Room Smoking is Dangerous to Your Health. Avoid second hand smoke Call the 24-hour hour crisis hotline for domestic abuse at Pedro Marsahll MD Apr 06, 2016 13:25
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
--- NOTE | 2016-04-06 19:03 | HHI.NSPN ---
History Chief Complaint: mild headache Exam Results Vital Signs Date Time Temp Pulse Resp B/P Pulse Ox O2 Delivery O2 Flow Rate FiO2 04/06/16 16:00 97.4 75 17 90/54 96 04/02/16 14:38 Room Air Intake and Output 04/05/16 04/05/16 04/06/16 08:00 16:00 00:00 Intake Total 240 ml 480 ml Output Total 1625 ml Balance -1385 ml 480 ml Physical Examination Awake and alert Speech clear and appropriate No significant anxiety or agitation Extraocular movements intact Facial motor movement symmetric Moves all extremities with good strength Parieto-occipital scalp defect stable, no purulent drainage. Medical Decision Making Impression and Plan Impression: 1. Parieto-occipital scalp laceration-defect. No evidence of purulent drainage. 2. Complaining of gait unsteadiness with some upper extremity paresthesias. MRI cervical spine without evidence of cord compression. Possible early neuropathy related to chronic alcohol use. Recommendations: Patient discussed this week with plastic surgery. Plastic surgery recommendations appreciated. Continuing dressing changes to allow granulation of the parotid occipital scalp lesion. No further neurosurgical intervention planned at this time Geo Roman MD Apr 06, 2016 19:03
[2016-04-07 00:01] VITALS: BP 82/53; PULSE 77; RESP 18; TEMP 98.1; O2SAT 95
[2016-04-07] MEDS: ACETAMINOPHEN/HYDROcodone 325 MG/10 MG TAB PO PRN ×2 (03:13→10:09)
[2016-04-07 04:01] VITALS: BP 85/63; PULSE 79; RESP 18; TEMP 97.8; O2SAT 95
[2016-04-07 06:48] LABS: AUTOMATED NEUTROPHIL # 2.1 TH/MM3 (1.8-7.7); BASOPHIL # 0.1 TH/MM3 (0-0.2); BASOPHIL % 1.3 % (0.0-2.0); EOSINOPHIL # 0.2 TH/MM3 (0-0.4); EOSINOPHIL % 4.8 % (0.0-4.0); HEMATOCRIT 32.9 % (39.0-51.0); HEMO FLAGS DIFF FINAL; LYMPH % 33.9 % (9.0-44.0); LYMPHOCYTE # 1.6 TH/MM3 (1.0-4.8); MEAN CELL VOLUME 105.2 FL (80.0-100.0); MEAN CORPUSCULAR HEMOGLOBIN 35.6 PG (27.0-34.0); MEAN CORPUSCULAR HGB CONC 33.8 % (32.0-36.0); PLATELET COUNT 160 TH/MM3 (150-450); RED BLOOD COUNT 3.13 MIL/MM3 (4.50-5.90); RED CELL DISTRIBUTION WIDTH 14.5 % (11.6-17.2); WHITE BLOOD COUNT 4.6 TH/MM3 (4.0-11.0)
[2016-04-07 07:32] LABS: BICARBONATE 30.8 MEQ/L (21.0-32.0); MAGNESIUM 2.2 MG/DL (1.5-2.5); POTASSIUM 3.9 MEQ/L (3.5-5.1)
[2016-04-07 08:20] VITALS: PULSE 62
[2016-04-07 08:23] VITALS: BP 89/54; PULSE 76; RESP 18; TEMP 98.6; O2SAT 96
[2016-04-07] MEDS: SODIUM CHLORIDE 0.9% FLUSH 5 ML FLUSH FLUSH SCH (09:00)
[2016-04-07] MEDS: SODIUM HYPOCHLORITE 0.25% 500 ML BTL TOPICAL SCH (09:00)
[2016-04-07] MEDS: MAGNESIUM OXIDE 400 MG TAB PO SCH (09:06)
[2016-04-07] MEDS: POTASSIUM PHOSPHATE MONOBASIC 500 MG TAB PO SCH (09:06)
[2016-04-07] MEDS: THIAMINE HCL 100 MG TAB PO SCH (09:06)
[2016-04-07] MEDS: traMADol HCL 50 MG TAB PO PRN (09:06)
[2016-04-07] MEDS: DOCUSATE SODIUM 100 MG CAP PO SCH (09:07)
--- NOTE | 2016-04-07 11:50 | HHI.PR ---
Subjective Remarks Follow-up falls. Discharge held yesterday because he cannot get into his sister 's house. BP low-normal patient denies any symptoms including dizziness and weakness. He has been ambulating. Discussed with RN Objective Vitals Vital Signs Date Time Temp Pulse Resp B/P Pulse Ox O2 Delivery O2 Flow Rate FiO2 04/07/16 08:23 98.6 76 18 89/54 96 04/07/16 04:01 97.8 79 18 85/63 95 04/07/16 00:01 98.1 77 18 82/53 95 04/06/16 20:01 98.3 78 18 95/53 96 04/06/16 18:00 69 04/06/16 16:00 97.4 75 17 90/54 96 04/06/16 12:00 98.5 82 16 108/51 95 I/O 04/06/16 04/06/16 04/06/16 04/07/16 04/07/16 04/07/16 07:00 15:00 23:00 07:00 15:00 23:00 Intake Total 480 ml 240 ml Output Total 900 ml 350 ml 300 ml 950 ml Balance -900 ml -350 ml 180 ml -710 ml Intake Oral 480 ml 240 ml Output Urine Total 900 ml 350 ml 300 ml 950 ml # Voids 1 # Bowel Movements 1 0 Result Diagram: 04/07/16 0602 04/07/16 0602 Imaging Last Impressions Cervical Spine MRI 04/04/16 0000 Signed Impressions: Service Date/Time: Monday, April 04, 2016 07:31 - CONCLUSION: Mild degenerative changes in the cervical spine. I do not see significant cord compression or signal in the cervical cord as a cause of myelopathy. Dell Tang MD FACR Brain MRI 04/01/16 0000 Signed Impressions: Service Date/Time: March 16:00 - CONCLUSION: 1. No acute intracranial abnormality. 2. Left parietal scalp hematoma. Ritchie Fatima MD Head CT 03/31/[id number] Signed Impressions: Service Date/Time: Thursday, March 31, 2016 19:23 - CONCLUSION: No acute intracranial disease. Left parietal scalp contusion Ritchie Fatima MD Cervical Spine CT 03/31/161901 Signed Impressions: Service Date/Time: Thursday, March 31, 2016 19:23 - CONCLUSION: Degenerative changes without fracture. Ritchie Fatima MD Objective Remarks GENERAL: Well-developed well-nourished. In no acute distress. SKIN: Warm and dry. ~2-3 cm posterior scalp wound with no signs of infection HEENT: Normocephalic. Pupils equal and round. Mucous membranes pink and moist. CARDIOVASCULAR: Regular rate and rhythm. No murmur appreciated. RESPIRATORY: No accessory muscle use. Clear to auscultation. Breath sounds equal bilaterally. GASTROINTESTINAL: Abdomen soft, non-tender, nondistended. Bowel sounds x4. MUSCULOSKELETAL: No obvious deformities. No clubbing or cyanosis. No edema. NEUROLOGICAL: Awake and alert. No focal neurological deficits. Moves upper and lower extremities spontaneously. Normal speech. PSYCHIATRIC: Appropriate mood and affect; insight and judgment normal. Procedures None A/P Problem List: (1) Dizziness ICD Code: R42 Status: Acute (2) Frequent falls ICD Code: R29.6 Status: Acute (3) Gait abnormality ICD Code: R26.9 Status: Acute (4) Alcohol abuse ICD Code: F10.10 Status: Chronic Assessment and Plan 55-year-old male with history of hepatitis C, former IVDU, alcohol abuse, tobacco use, hypertension, presents with dizziness, inability to ambulate, frequent falls. 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 Head CT shows left parietal scalp contusion otherwise unremarkable. Brain MRI continues to show hematoma, but no acute intracranial abnormality. Cervical MRI with mild degenerative changes, chronic. Continue scheduled meclizine. Neuro checks. Fall/seizure precautions. Non-orthostatic. Consulted PT, recommends [facility] with supervision vs SNF. Patient lives with his sister. Monitor on telemetry. Scalp Hematoma: from fall reported on 03/15/16. Staple removed in the ED. Consulted event designer, recommended surgery evaluation. Neurosurgery consulted , recommends MRI C-spine and plastic surgery evaluation secondary to significant skin defect. Tramadol as needed for pain. Plastic surgery recommended wound healing by secondary intention. Wound care. Macrocytic anemia: likely secondary to alcohol abuse and folate deficiency. B12 within normal limits. Hemoglobin stable at 10.5/10.4. Monitor. Electrolyte derangement: K 3.2, given oral potassium replacement, now 3.5. Magnesium also deficient, given IV and oral replacement, now 2.0. Phosphorus low at 2.3, started oral replacement. [facility] Act: for alcohol abuse. Plan to go to [facility] at discharge will clarify with case management cannot find documentation. Patient motivated to follow-up outpatient Alcohol Abuse: monitor closely for withdrawal. Last beer evening of 03/31/16. Started on thiamine/folate/MV. CIWA protocol with Ativan prn. Tobacco Use: counseled on cessation. Offer nicotine patch if needed. Hepatitis C: chronic, outpatient f/up. DVT Prophylaxis: teds/SCDs Discharge Planning Stable for discharge Pedro Marshall MD Apr 07, 2016 11:50
== END 2016-04-07 12:04 | disposition home health service (06) ==
LOC: NEDAMB 17:40 → INTOOBSV 04-01 13:12 → NEDA 04-01 13:12 → NEDH 04-01 19:17 → N05A 04-02 19:55
PROVIDERS: ADMIT Internal Medicine; ATTEND Internal Medicine
DX: F10.120 Alcohol abuse with intoxication, uncomplicated (principal); S01.01XD Laceration without foreign body of scalp, subsequent encounter; R29.6 Repeated falls; Z86.14 Personal history of Methicillin resistant Staphylococcus aureus infection; I10 Essential (primary) hypertension; E87.6 Hypokalemia; B18.2 Chronic viral hepatitis C; D53.9 Nutritional anemia, unspecified; E53.8 Deficiency of other specified B group vitamins; D75.89 Other specified diseases of blood and blood-forming organs; Z72.0 Tobacco use; Y93.55 Activity, bike riding; V19.9XXD Pedal cyclist (driver) (passenger) injured in unspecified traffic accident, subsequent encounter
CPT/HCPCS: 70450; 70551; 72125; 72141; 80048; 80320; 82550; 82607; 82746; 83735; 84100; 85007; 85025; 85027; 85610; 85730; 93005; 97110; 97116; 97163; 99285; G0378; G8987; G8988; J2060; J3475; J7030

== ENCOUNTER 2016-04-28 13:51 | Inpatient (IN) | payer OTHER ==
[~2016-04-28] VITALS: Ht 177.8 cm; Wt 93.2 kg
[2016-04-28] VITALS (13 sets, daily range): BP systolic 97–141; BP diastolic 53–75; PULSE 56–84; RESP 12–18; TEMP 91.5–97.7; O2SAT 87–99
[~2016-04-28 13:51] MED LIST: DAKINSHST TOPICAL; HYDR-3516 PO; VITA100T2 PO
[2016-04-28] MEDS ORDERED: SODIUM CHLOR 0.9% 1000 ML INJ 1,000 ML IV SCH (14:01)
--- NOTE | 2016-04-28 14:14 | PD ---
HPI Chief Complaint: Altered Mental Status Time Seen by Provider: 14:01 Travel History International Travel<30 days: No Contact w/Intl Traveler<30days: No Traveled to known affect area: No History of Present Illness HPI 55-year-old man, history of alcoholism and frequent falls, presents to the emergency department after being found unresponsive at home sitting upright on a tile floor. EMS reported a GCS of 8 on scene. Was talking some to fire department. He was following some basic commands. He was surrounded by [place] bottles at home. No evidence of trauma on scene. Unable to give any additional history. History Past Medical History Medical History: Unable to Obtain Past Surgical History Surgical History: Unable to Obtain Social History Alcohol Use: Yes (ETOH ABUSE) Tobacco Use: Yes (PPD) Allergies-Medications (Allergen,Severity, Reaction): Coded Allergies: No Known Allergies (Verified , 04/28/16) Reported Meds & Prescriptions Reported Meds & Active Scripts Active Dakins Solution Half Strength Topical (Sodium Hypochlorite) 0.2-0.25 % Soln 500 Ml TOPICAL BID Vitamin B-1 (Thiamine HCl) 100 Mg Tab 100 Mg PO DAILY Reported Hydrocodone-Acetaminophen 5-325 mg Tab 1 Tab PO Q6H PRN Review of Systems ROS Limitations: Clinical Condition Physical Exam Narrative GENERAL: Obtunded 55-year-old man, no response to verbal stimuli. SKIN: Skin is cool, wet. HEAD: Normocephalic. His: Of ecchymosis around his right eye. Gaze appears a little bit disconjugate. EYES: Pupils equal and round. No scleral icterus. No injection or drainage. ENT: No nasal bleeding or discharge. Mucous membranes pink and moist. NECK: Trachea midline. No obvious evidence of trauma. CARDIOVASCULAR: Regular rate and rhythm. No murmur appreciated. RESPIRATORY: No accessory muscle use. Clear to auscultation. Breath sounds equal bilaterally. GASTROINTESTINAL: Abdomen soft, non-tender, nondistended. Hepatic and splenic margins not palpable. MUSCULOSKELETAL: No obvious deformities. Decreased muscle bulk. NEUROLOGICAL: Obtunded. Withdraws from painful stimuli. Moans some. Keeps eyes closed. He withdraws in all 4 extremities but appears to withdraw all molar on the right than on the left. Data Data Last Documented VS Vital Signs Date Time Temp Pulse Resp B/P Pulse Ox O2 Delivery O2 Flow Rate FiO2 04/28/16 14:06 91.5 04/28/16 14:06 14 97 Nasal Cannula 4 04/28/16 13:51 79 101/65 Orders Electrocardiogram (04/28/16 14:01) Alcohol (Ethanol) (04/28/16 14:01) Ammonia (04/28/16 14:01) Complete Blood Count With Diff (04/28/16 14:01) Comprehensive Metabolic Panel (04/28/16 14:01) Creatine Kinase (Cpk) (04/28/16 14:01) Drug Screen, Random Urine (04/28/16 14:01) Prothrombin Time / Inr (Pt) (04/28/16 14:01) Act Partial Throm Time (Ptt) (04/28/16 14:01) Salicylates (Aspirin) (04/28/16 14:01) Troponin I (04/28/16 14:01) Tylenol (Acetaminophen) (04/28/16 14:01) Lactic Acid Sepsis Protocol (04/28/16 14:01) Arterial Blood Gas (Abg) (04/28/16 14:01) Blood Culture (04/28/16 14:01) Chest, Single Ap (04/28/16 14:01) Ct Brain W/O Iv Contrast(Rout) (04/28/16 14:01) Blood Glucose (04/28/16 14:01) Ecg Monitoring (04/28/16 14:01) Iv Access Insert/Monitor (04/28/16 14:01) Oximetry (04/28/16 14:01) Urinary Catheter Insert/Apply (04/28/16 14:01) Sodium Chloride 0.9% Flush (Ns Flush) (04/28/16 14:15) Sodium Chlor 0.9% 1000 Ml Inj (Ns 1000 M (04/28/16 14:01) Warming [place] / Warming Syst PRN (04/28/16 14:01) MDM Medical Decision Making Medical Screen Exam Complete: Yes Emergency Medical Condition: Yes Differential Diagnosis Head bleed, stroke, intoxication, overdose, rhabdo, dehydration, sepsis, other Narrative Course Medical decision making 55-year-old male with a history of alcohol abuse presents obtunded after being found down at home. He has a low temperature. Likely intoxication versus stroke or bleed. We'll check CT head. Sepsis or other metabolic drainage but less likely. We'll give IV fluids, check labs, blood cultures, reassess. Kj Smyth MD Apr 28, 2016 14:14
[2016-04-28] MEDS ORDERED: SODIUM CHLORIDE 0.9% FLUSH 5 ML FLUSH IVF PRN (14:15)
[2016-04-28 14:27] LABS: AUTOMATED NEUTROPHIL # 0.7 TH/MM3 (1.8-7.7); BASOPHIL # 0.1 TH/MM3 (0-0.2); BASOPHIL % 3.2 % (0.0-2.0); EOSINOPHIL # 0.1 TH/MM3 (0-0.4); EOSINOPHIL % 2.1 % (0.0-4.0); HEMATOCRIT 43.8 % (39.0-51.0); LYMPH % 69.9 % (9.0-44.0); LYMPHOCYTE # 3.2 TH/MM3 (1.0-4.8); MEAN CELL VOLUME 98.8 FL (80.0-100.0); MEAN CORPUSCULAR HEMOGLOBIN 32.9 PG (27.0-34.0); MEAN CORPUSCULAR HGB CONC 33.3 % (32.0-36.0); MONO % 9.7 % (0.0-8.0); NEUT % 15.1 % (16.0-70.0); PLATELET COUNT 181 TH/MM3 (150-450); RED BLOOD COUNT 4.43 MIL/MM3 (4.50-5.90); RED CELL DISTRIBUTION WIDTH 15.4 % (11.6-17.2); WHITE BLOOD COUNT 4.6 TH/MM3 (4.0-11.0)
[2016-04-28 14:28] LABS: HEMO FLAGS AUTO DIFF
[2016-04-28 14:37] LABS: APTT (PATIENT) 27.3 SEC (24.3-30.1); INTERNATIONAL NORMALIZED RATIO 1.1 RATIO
[2016-04-28 14:47] LABS: ANION GAP 14 MEQ/L (5-15); AST (GOT) 257 U/L (15-37); BICARBONATE 26.5 MEQ/L (21.0-32.0); BLOOD UREA NITROGEN 7 MG/DL (7-18); CHLORIDE 108 MEQ/L (98-107); GLOMERULAR FILTRATION RATE 222 ML/MIN (>89); POTASSIUM 3.2 MEQ/L (3.5-5.1); SODIUM (NA) 148 MEQ/L (136-145)
[2016-04-28 14:52] LABS: ACETAMINOPHEN LESS THAN 2.0 MCG/ML (10.0-30.0); ALKALINE PHOSPHATASE 96 U/L (45-117); ALT (GPT) 151 U/L (12-78); TOTAL BILIRUBIN ADULT 0.5 MG/DL (0.2-1.0)
--- NOTE | 2016-04-28 14:53 | RADRPT ---
EXAM DATE/TIME: 04/28/2016 14:26 [facility] COMPARISON: No previous studies available for comparison. INDICATIONS : Syncope. MEDICAL HISTORY : None. SURGICAL HISTORY : None. ENCOUNTER: Initial ACUITY: 1 day PAIN SCORE: Non-responsive. LOCATION: Bilateral chest FINDINGS: A single view of the chest demonstrates the lungs to be symmetrically aerated without evidence of mas s, infiltrate or effusion. The cardiomediastinal contours are unremarkable. Osseous structures are intact. CONCLUSION: No acute disease. Dell Tang MD FACR on April 28, 2016 at 14:51 Board Certified Radiologist. This report was verified electronically.
--- NOTE | 2016-04-28 14:55 | RADRPT ---
EXAM DATE/TIME: 04/28/2016 14:33 [facility] COMPARISON: CT BRAIN W/O CONTRAST, March 31, 2016, 19:23. INDICATIONS : Altered mental status. Found unresponsive. RADIATION DOSE: 56.35 CTDIvol (mGy) MEDICAL HISTORY : Hypertension. ETOH abuse. SURGICAL HISTORY : None. ENCOUNTER: Initial ACUITY: 1 day PAIN SCALE: 0/10 LOCATION: cranial TECHNIQUE: Multiple contiguous axial images were obtained of the head. Using automated exposure control and adj ustment of the mA and/or kV according to patient size, radiation dose was kept as low as reasonably a chievable to obtain optimal diagnostic quality images. FINDINGS: CEREBRUM: The ventricles are normal for age. No evidence of midline shift, mass lesion, hemorrhage or acute in farction. No extra-axial fluid collections are seen. POSTERIOR FOSSA: The cerebellum and brainstem are intact. The 4th ventricle is midline. The cerebellopontine angle i s unremarkable. EXTRACRANIAL: The visualized portion of the orbits is intact. SKULL: The calvaria is intact. No evidence of skull fracture. CONCLUSION: No acute disease. Dell Tang MD FACR on April 28, 2016 at 14:51 Board Certified Radiologist. This report was verified electronically.
[2016-04-28 15:03] LABS: CREATINE KINASE 91 U/L (39-308)
[2016-04-28 15:35] LABS: AMPHETAMINE, URINE NEG (NEG); BARBITURATES, URINE NEG (NEG); COCAINE, URINE NEG (NEG)
[2016-04-28 15:38] LABS: BASOPHILS 4 % (0-2); NEUTROPHIL # MANUAL DIFF 0.6 TH/MM3 (1.8-7.7); POLYS (SEG NEUTROPHILS) 14 % (16-70); WBC DIFF SAMPLE 100
[2016-04-28 15:39] LABS: PLATELET ESTIMATE SMEAR NORMAL (NORMAL); PLATELET MORPHOLOGY NORMAL (NORMAL); SCAN/DIFF FINAL DIFF MANUAL; TARGET CELLS 1+ (NORMAL); TEARDROP RBCS 1+ (NORMAL)
[2016-04-28 16:20] LABS: LACTIC ACID GHOST NOT REPORTABLE
[2016-04-28] MEDS ORDERED: SODIUM CHLORIDE 0.9% FLUSH 5 ML FLUSH IV FLUSH PRN (17:30)
[2016-04-28] MEDS ORDERED: SENNOSIDES SYRUP 8.8 MG/5 ML CUP G-TUBE PRN (17:30)
[2016-04-28] MEDS ORDERED: ONDANSETRON HCL 4 MG/2 ML VIAL IV PRN (17:30)
[2016-04-28] MEDS ORDERED: RESP: ALBUTEROL 2.5 MG/IPRATROPIUM 0.5 MG NEB (PRN) INH (17:30)
[2016-04-28] MEDS ORDERED: MISCELLANEOUS NURSING INFORMATION XX SCH (17:30)
[2016-04-28] MEDS ORDERED: CHLORHEXIDINE GLUCONATE 2 % 1 PACK (2 CLOTHS) TOP PRN (17:30)
--- NOTE | 2016-04-28 17:43 | HHI.HP ---
[facility] Service Critical Care Medicine Primary Care Physician Silverio Campa MD Admission Diagnosis occult intoxication, altered mental status, hypothermia Diagnosis: (1) Elevated transaminase level Diagnosis: Principal (2) Lactic acidosis Diagnosis: Principal (3) Hypopotassemia Diagnosis: Principal (4) Hypernatremia Diagnosis: Principal (5) Alcohol abuse Diagnosis: Principal (6) Alcohol intoxication Diagnosis: Principal (7) Hypothermia Diagnosis: Principal (8) Sinus bradycardia Diagnosis: Principal (9) Wound abscess Diagnosis: Principal Chief Complaint: Found unresponsive at home GCS of 8 surrounded by alcohol bottles Travel History International Travel<30 Days: No Contact w/Intl Traveler <30 Da: No Traveled to Known Affected Are: No History of Present Illness 55-year-old male. Date of admission 04/28/2016. 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 Patient was found at home by the fire department sitting up on his tile floor at home surrounded by alcohol bottles. He was hypothermic and able to speak a few words. He is transferred to [facility] for further evaluation. Here, CT head negative. Chest x-ray revealed no acute cardio pulmonic spinous. He is in sinus bradycardia and hypothermic. Rewarming device was provided. He is currently on 4 L nasal cannula opening eyes and protecting his airway. Alcohol level 558 and lactic acidosis at 3.1. Sodium 148 and potassium 3.2. Blood cultures 2 ordered. No obvious source of infection UA cortisol TSH all pending Review of Systems ROS Limitations: Altered Mental Status Past Family Social History Allergies: Coded Allergies: No Known Allergies (Verified , 04/28/16) Past Medical History EtOH Tobaccoism Hypertension Started IV drug use Chronic narcotic use Past Surgical History Left hand Reported Medications Thiamine 100 mg by mouth daily Dakin solution [place] as needed Active Ordered Medications Reviewed in EMR Family History Father with diabetes. Mother with colon cancer. Social History 5 beers per day. One half pack per day tobacco. History of IV drug use. Physical Exam Vital Signs Vital Signs Date Time Temp Pulse Resp B/P Pulse Ox O2 Delivery O2 Flow Rate FiO2 04/28/16 15:00 57 16 101/61 97 Nasal Cannula 4 04/28/16 14:14 97 4.00 04/28/16 14:06 91.5 04/28/16 14:06 14 97 Nasal Cannula 4 04/28/16 13:53 97 Nasal Cannula 4 04/28/16 13:51 91.5 79 14 101/65 87 Physical Exam GENERAL: 55-year-old male, critically ill currently resting in bed SKIN: Warm and dry. Noted left upper extremity injury HEAD: Atraumatic. Normocephalic. EYES: Pupils equal and round about 3 mm bilaterally and reactive. No scleral icterus. No injection or drainage. ENT: No nasal bleeding or discharge. Mucous membranes pink and moist. NECK: Trachea midline. No JVD. CARDIOVASCULAR: Tachycardic, RR. S1, S2 no S4. Without murmur RESPIRATORY: Clear to auscultation. Breath sounds equal bilaterally. GASTROINTESTINAL: Abdomen soft, non-tender, nondistended. Hypoactive bowel sounds MUSCULOSKELETAL: Extremities without no skin peripheral edema. Left hand deformity NEUROLOGICAL: Eyes open to voice. Moves all 4 extremities to command. Provides answers with 1-2 word responses. Laboratory Laboratory Tests Test 04/28/16 04/28/16 04/28/16 14:00 14:08 15:17 White Blood Count 4.6 Red Blood Count 4.43 Hemoglobin 14.6 Hematocrit 43.8 Mean Corpuscular Volume 98.8 Mean Corpuscular Hemoglobin 32.9 Mean Corpuscular Hemoglobin 33.3 Concent Red Cell Distribution Width 15.4 Platelet Count 181 Mean Platelet Volume 7.1 Neutrophils (%) (Auto) 15.1 Lymphocytes (%) (Auto) 69.9 Monocytes (%) (Auto) 9.7 Eosinophils (%) (Auto) 2.1 Basophils (%) (Auto) 3.2 Neutrophils # (Auto) 0.7 Lymphocytes # (Auto) 3.2 Monocytes # (Auto) 0.4 Eosinophils # (Auto) 0.1 Basophils # (Auto) 0.1 CBC Comment AUTO DIFF Differential Total Cells 100 Counted Neutrophils % (Manual) 14 Lymphocytes % 77 Monocytes % 5 Basophils % 4 Neutrophils # (Manual) 0.6 Differential Comment FINAL DIFF MANUAL Platelet Estimate NORMAL Platelet Morphology Comment NORMAL Target Cells 1+ Tear Drop Cells 1+ Prothrombin Time 12.0 Prothromb Time International 1.1 Ratio Activated Partial 27.3 Thromboplast Time Sodium Level 148 Potassium Level 3.2 Chloride Level 108 Carbon Dioxide Level 26.5 Anion Gap 14 Blood Urea Nitrogen 7 Creatinine 0.40 Estimat Glomerular Filtration 222 Rate Random Glucose 107 Lactic Acid Level 3.1 Calcium Level 7.6 Total Bilirubin 0.5 Aspartate Amino Transf 257 (AST/SGOT) Alanine Aminotransferase 151 (ALT/SGPT) Alkaline Phosphatase 96 Ammonia 22 Total Creatine Kinase 91 Troponin I LESS THAN 0.02 Total Protein 7.2 Albumin 3.1 Salicylates Level 2.4 Acetaminophen Level LESS THAN 2.0 Ethyl Alcohol Level 558 Blood Gas Puncture Site LT FEMORAL Blood Gas Patient Temperature 92.0 Blood Gas HCO3 26 Blood Gas Base Excess 0.3 Blood Gas Oxygen Saturation 94 Arterial Blood pH 7.34 Arterial Blood Partial 47 Pressure CO2 Arterial Blood Partial 154 Pressure O2 Arterial Blood Oxygen Content 18.9 Arterial Blood 3.3 Carboxyhemoglobin Arterial Blood Methemoglobin 1.7 Blood Gas Hemoglobin 14.1 Oxygen Delivery Device NASAL CANNULA Blood Gas Liter Flow 4 Urine Opiates Screen NEG Urine Barbiturates Screen NEG Urine Amphetamines Screen NEG Urine Benzodiazepines Screen POS Urine Cocaine Screen NEG Urine Cannabinoids Screen NEG Date/Time Procedure Status Source Growth 04/28/16 14:02 Aerobic Blood Culture Received Blood Peripheral Pending 04/28/16 14:02 Anaerobic Blood Culture Received Blood Peripheral Pending Result Diagram: 04/28/16 1400 04/28/16 1400 Imaging Last Impressions Head CT 04/28/16 1401 Signed Impressions: Service Date/Time: Thursday, April 28, 2016 14:33 - CONCLUSION: No acute disease. Dell Tang MD FACR Chest X-Ray 04/28/16 1401 Signed Impressions: Service Date/Time: Thursday, April 28, 2016 14:26 - CONCLUSION: No acute disease. Dell Tang MD FACR Assessment and Plan Assessment and Plan Neuro/Psych: Acute delirium secondary to hypothermia/EtOH EtOH CT head 04/28 revealed no acute intracranial findings Alcohol level greater than 500 Vitamin bag daily start now 3 days Monitor for DTs CIWA protocol initiated CV: Sinus bradycardia Lactic acidosis Likely secondary hypothermia. No [place] waves appreciated Monitor in ICU. Troponin 0.02. Check TSH Serial lactates until clear. Resp: Nasal cannula to maintain saturations greater than equal to 92% Incentive spirometry while awake Chest x-ray reveals no acute cardio pulmonary findings GI: Transaminitis - likely secondary to EtOH Patient is currently nothing by mouth. Advance diet as tolerated Protonix for GI prophylaxis Colace/as needed Senokot for bowel regimen EGD in 2007 revealed gastritis and esophagitis. No signs of varices. Recheck CMP in a.m. lipase pending : Felix for accurate I's and O's in critically ill patient Endo: Hypothermia Check TSH and cortisol levels. Likely secondary to exposure. Rule out infection Mateo miles initiated. Renal: Creatinine currently within normal limits. Currently on normal saline at 84 cc an hour Recheck BMP in a.m. Heme: CBC within normal limits. Recheck in a.m. Coags normal ID: Monitor for infection. Blood cultures 2/UA ordered. Influenza pending FEN: Hypernatremia Hypokalemia ICU electrolyte protocol initiated. Replace as clinically indicated MSK: History of MRSA left hand. Dakin solution initiated Access - Utilized peripheral IV. Central line if indicated Prophylaxis - GI - Protonix - DVT - SCD/heparin Critical Care: The total critical care time was 65 minutes. Time to perform other separately billable procedures was not included in the critical care time. Code Status Full code Discussed Condition With Dr. Smyth/ED physician and patient. Care plan discussed all questions answered Problem Qualifiers (1) Alcohol intoxication: Qualified Code: F10.129 - Alcohol intoxication, with unspecified complication (2) Hypothermia: Qualified Code: T68.XXXA - Hypothermia, initial encounter (3) Wound abscess: Qualified Code: T81.4XXS - Wound abscess, sequela Raghu Quinones MD Apr 28, 2016 17:43
[2016-04-28] MEDS ORDERED: MAGNESIUM SULFATE INJ 4 GM in SODIUM CHLORIDE 0.9% INJ 92 ML IV PRN (17:45)
[2016-04-28] MEDS ORDERED: POTASSIUM CHLOR 20 MEQ PREMIX 100 ML IV PRN ×2 (17:45)
[2016-04-28] MEDS ORDERED: POTASSIUM PHOSPHATE MONOBASIC 500 MG TAB PO/TUBE PRN (17:45)
[2016-04-28] MEDS ORDERED: MAGNESIUM SULFATE INJ 2 GM in SODIUM CHLORIDE 0.9% INJ 96 ML IV PRN (17:45)
[2016-04-28] MEDS ORDERED: SODIUM PHOSPHATE INJ 30 MMOL in SODIUM CHLOR 0.9% 250 ML INJ 240 ML IV PRN (17:45)
[2016-04-28] MEDS ORDERED: POTASSIUM PHOSPHATE INJ 30 MMOL in SODIUM CHLOR 0.9% 250 ML INJ 250 ML IV PRN (17:45)
[2016-04-28] MEDS ORDERED: FLUMAZENIL 0.5 MG/5 ML VIAL IV PUSH PRN (17:45)
[2016-04-28] MEDS ORDERED: POTASSIUM PHOSPHATE MONOBASIC 500 MG TAB PO PRN (17:45)
[2016-04-28] MEDS ORDERED: POTASSIUM CHLOR 40 MEQ PREMIX 100 ML IV PRN ×2 (17:45)
[2016-04-28] MEDS ORDERED: POTASSIUM CL 40 MEQ/30 ML LIQ UDC PO/TUBE PRN ×2 (17:45)
[2016-04-28] MEDS ORDERED: LORazepam 2 MG/ML VIAL IV PUSH PRN ×2 (17:45)
[2016-04-28] MEDS ORDERED: LACTATED RINGER'S 1000 ML INJ 1,000 ML IV ONE (17:45)
[2016-04-28] MEDS ORDERED: MAGNESIUM OXIDE 400 MG TAB PO PRN (17:45)
[2016-04-28] MEDS: SODIUM CHLOR 0.9% 1000 ML INJ 1,000 ML IV SCH (19:30)
[2016-04-28] MEDS: HEPARIN SODIUM - SQ 10,000 UNITS/ML VIAL SQ SCH (19:30)
[2016-04-28] MEDS: RESP: ALBUTEROL 2.5 MG/IPRATROPIUM 0.5 MG NEB (SCH) INH (20:02)
[2016-04-28] MEDS: MULTIVITAMIN INJ 10 ML, THIAMINE INJ 100 MG, FOLIC ACID INJ 1 MG in SODIUM CHLORID 0.9%... IV SCH (20:29)
[2016-04-28] MEDS: ARTIFICIAL TEARS OPTH SOLN 15 ML BTL EACH EYE SCH (20:29)
[2016-04-28] MEDS ORDERED: SODIUM CHLORIDE 0.9% FLUSH 5 ML FLUSH IV FLUSH SCH (21:00)
[2016-04-28] MEDS: SODIUM HYPOCHLORITE 0.25% 500 ML BTL TOPICAL SCH (21:00)
[2016-04-28] MEDS: DOCUSATE SODIUM 100 MG CAP PO SCH (22:36)
[2016-04-28] MEDS: SODIUM CHLORIDE 0.9% FLUSH 5 ML FLUSH IV FLUSH SCH (22:36)
[2016-04-28] MEDS: MORPHINE SULFATE 4 MG/ML INJ IV PRN (22:37)
[2016-04-28 23:50] LABS: BACTERIA, URINE OCC /hpf; BLOOD, URINE NEG (NEG); COMMENT (UR) CATH-CULTURE IND; CULTURE IF INDICATED CATH CULTURE IND; GLUCOSE,URINE NEG (NEG); HYALINE CAST, URINE 1 /lpf (RARE); KETONE, URINE NEG (NEG); MUCUS URINE FEW /lpf (OCC); NITRITE,URINE NEG (NEG); PH, URINE 5.5 (5.0-8.5); RENAL EPITHELIAL CELLS <1 /hpf; SQUAMOUS EPITHELIAL CELL URINE 1 /hpf (0-5); TRANSITIONAL EPI CELLS, URINE <1 /hpf; URINE COLOR LIGHT-YELLOW (YELLW/STRAW)
[2016-04-29] VITALS (14 sets, daily range): BP systolic 92–111; BP diastolic 51–69; PULSE 73–119; RESP 13–26; TEMP 97.6–100.2; O2SAT 92–100
[2016-04-29] MEDS: MORPHINE SULFATE 4 MG/ML INJ IV PRN ×7 (00:45→21:33)
[2016-04-29] MEDS: CHLORHEXIDINE GLUCONATE 2 % 1 PACK (2 CLOTHS) TOP SCH (03:51)
[2016-04-29 04:46] LABS: AUTOMATED NEUTROPHIL # 2.8 TH/MM3 (1.8-7.7); BASOPHIL # 0.1 TH/MM3 (0-0.2); BASOPHIL % 2.3 % (0.0-2.0); EOSINOPHIL # 0.1 TH/MM3 (0-0.4); EOSINOPHIL % 1.7 % (0.0-4.0); HEMATOCRIT 33.8 % (39.0-51.0); HEMO FLAGS DIFF FINAL; LYMPH % 30.4 % (9.0-44.0); LYMPHOCYTE # 1.7 TH/MM3 (1.0-4.8); MEAN CELL VOLUME 98.3 FL (80.0-100.0); MEAN CORPUSCULAR HEMOGLOBIN 32.9 PG (27.0-34.0); MEAN CORPUSCULAR HGB CONC 33.5 % (32.0-36.0); MONO % 14.1 % (0.0-8.0); NEUT % 51.5 % (16.0-70.0); PLATELET COUNT 143 TH/MM3 (150-450); RED BLOOD COUNT 3.44 MIL/MM3 (4.50-5.90); RED CELL DISTRIBUTION WIDTH 15.3 % (11.6-17.2); WHITE BLOOD COUNT 5.5 TH/MM3 (4.0-11.0)
[2016-04-29] MEDS: SODIUM CHLOR 0.9% 1000 ML INJ 1,000 ML IV SCH ×2 (04:59→16:20)
[2016-04-29 05:02] LABS: APTT (PATIENT) 29.7 SEC (24.3-30.1); INTERNATIONAL NORMALIZED RATIO 1.1 RATIO; PROTHROMBIN TIME - PATIENT 12.7 SEC (9.8-11.6)
[2016-04-29 05:13] LABS: BICARBONATE 25.1 MEQ/L (21.0-32.0); CALCIUM-PROTEIN CORRECTED 7.7 MG/DL (8.5-10.1); MAGNESIUM 1.3 MG/DL (1.5-2.5); POTASSIUM 3.4 MEQ/L (3.5-5.1); TOTAL BILIRUBIN ADULT 0.5 MG/DL (0.2-1.0)
[2016-04-29] MEDS: LORazepam 2 MG/ML VIAL IV PUSH PRN ×7 (05:15→21:33)
[2016-04-29] MEDS: HEPARIN SODIUM - SQ 10,000 UNITS/ML VIAL SQ SCH ×2 (06:00→18:33)
[2016-04-29] MEDS: RESP: ALBUTEROL 2.5 MG/IPRATROPIUM 0.5 MG NEB (SCH) INH ×3 (07:38→23:04)
[2016-04-29] MEDS: DOCUSATE SODIUM 100 MG CAP PO SCH ×2 (08:08→20:26)
[2016-04-29] MEDS: PANTOPRAZOLE SODIUM 40 MG VIAL IV SCH (08:09)
[2016-04-29] MEDS: SODIUM CHLORIDE 0.9% FLUSH 5 ML FLUSH IV FLUSH SCH ×2 (08:10→21:00)
[2016-04-29] MEDS: ARTIFICIAL TEARS OPTH SOLN 15 ML BTL EACH EYE SCH ×3 (08:10→18:34)
[2016-04-29] MEDS: MULTIVITAMIN INJ 10 ML, THIAMINE INJ 100 MG, FOLIC ACID INJ 1 MG in SODIUM CHLORID 0.9%... IV SCH (08:47)
[2016-04-29] MEDS: SODIUM HYPOCHLORITE 0.25% 500 ML BTL TOPICAL SCH ×3 (08:47→21:00)
[2016-04-29] MEDS ORDERED: CHLORHEXIDINE GLUCONATE 2 % 1 PACK (2 CLOTHS) TOP PRN (13:45)
[2016-04-29] MEDS ORDERED: MISCELLANEOUS NURSING INFORMATION XX SCH (13:45)
[2016-04-29] MEDS ORDERED: LACTATED RINGER'S 1000 ML INJ 1,000 ML IV ONE ×2 (13:45→18:30)
[2016-04-29] MEDS ORDERED: Vancomycin Consult Pharmacy 1 EA XX SCH (13:45)
--- NOTE | 2016-04-29 13:59 | PD.ID.CON ---
History of Present Illness Service ID Consult Requested By [facility] Reason for Consult Evaluation and Mment of Sepsis, Gram positive bacteremia Primary Care Physician Silverio Campa MD Diagnoses: History of Present Illness Mr. Lagos is a 55 y/o CM with PMHx of Hepatitis C, IVDA, claustrophobia, Alcoholism, Hypertension, Depression, H/o MRSA infection to the left hand. With this background patient was admitted at [facility] on 04/29/2016 as patient was found at home by the fire department sitting up on his tile floor at home surrounded by alcohol bottles. He was hypothermic and able to speak a few words. He is transferred to [facility] for further evaluation. On arrival he was hypothermic and bradycardic. Patient was rewarmed and received fluids. CT head negative for bleed. CXR with no infiltrates. His alcohol level was 558 and lactic acidosis at 3.1. Sodium 148 and potassium 3.2. Blood cultures 2 ordered. Blood cultures ordered on admission positive for gram positive bacteremia. ID consulted for evaluation and Mment of Sepsis, Gram positive bacteremia. Review of Systems ROS Limitations: Poor Historian Constitutional: DENIES: Diaphoretic episodes, Fatigue, Fever, Weight gain, Weight loss, Chills, Dizziness, Change in appetite, Night Sweats Endocrine: DENIES: Heat/cold intolerance, Polydipsia, Polyuria, Polyphagia Eyes: DENIES: Blurred vision, Diplopia, Eye inflammation, Eye pain, Vision loss , Photosensitivity, Double Vision Ears, nose, mouth, throat: DENIES: Tinnitus, Hearing loss, Vertigo, Nasal discharge, Oral lesions, Throat pain, Hoarseness, Ear Pain, Running Nose, Epistaxis, Sinus Pain, Toothache, Odynophagia Respiratory: DENIES: Apneas, Cough, Snoring, Wheezing, Hemoptysis, Sputum production, Shortness of breath Cardiovascular: DENIES: Chest pain, Palpitations, Syncope, Dyspnea on Exertion , PND, Lower Extremity Edema, Orthopnea, Claudication Gastrointestinal: DENIES: Abdominal pain, Black stools, Bloody stools, Constipation, Diarrhea, Nausea, Vomiting, Difficulty Swallowing, Anorexia Genitourinary: DENIES: Sexual dysfunction, Urinary frequency, Urinary incontinence, Urgency, Hematuria, Dysuria, Nocturia, Penile Discharge, Testicular Pain, Testicular Swelling Musculoskeletal: DENIES: Joint pain, Muscle aches, Stiffness, Joint Swelling, Back pain, Neck pain Integumentary: DENIES: Abnormal pigmentation, Nail changes, Pruritus, Rash Hematologic/lymphatic: DENIES: Bruising, Lymphadenopathy Immunologic/allergic: DENIES: Eczema, Urticaria Neurologic: DENIES: Abnormal gait, Headache, Localized weakness, Paresthesias, Seizures, Speech Problems, Tremor, Poor Balance Psychiatric: DENIES: Anxiety, Confusion, Mood changes, Depression, Hallucinations, Agitation, Suicidal Ideation, Homicidal Ideation, Delusions Past Family Social History Allergies: Coded Allergies: No Known Allergies (Verified , 04/28/16) Past Medical History Alcoholism Tobaccoism Hypertension Started IV drug use Chronic narcotic use Past Surgical History Left hand surgery Reported Medications Reported Meds & Active Scripts Active Dakins Solution Half Strength Topical (Sodium Hypochlorite) 0.2-0.25 % Soln 500 Ml TOPICAL BID Vitamin B-1 (Thiamine HCl) 100 Mg Tab 100 Mg PO DAILY Reported Hydrocodone-Acetaminophen 5-325 mg Tab 1 Tab PO Q6H PRN Active Ordered Medications Current Medications Medications (Trade) Dose Ordered Sig/Nikita Route Start Time Stop Time Status Last Admin IV Flush 2 ml 2 ml UNSCH PRN IVF 04/28/16 14:15 (NS 1000 ml Inj) 1,000 ml @ 84 mls/hr [id number] IV 04/28/16 17:30 04/29/16 16:20 (Morphine Inj) 2 mg Q2H PRN IV 04/28/16 17:30 04/29/16 16:08 (Protonix Inj) 40 mg DAILY IV 04/29/16 09:00 04/29/16 08:09 (Tears Naturale Opth Soln) 1 drop TID EACH EYE 04/28/16 18:00 04/29/16 14:00 (Zofran Inj) 4 mg Q6H PRN IV 04/28/16 17:30 (Colace) 100 mg BID PO 04/28/16 21:00 04/29/16 08:08 (Senna Liq) 17.6 mg Q12H PRN G-TUBE 04/28/16 17:30 (Heparin Inj) 5,000 units Q12H SQ 04/28/16 18:00 04/28/16 19:30 Miscellaneous Information 1 Q361D XX 04/28/16 17:30 (Chlorhexidine 2% Cloth) 3 pack Taper DAILY@04 TOP 04/29/16 04:00 04/25/17 03:59 04/29/16 03:51 (Chlorhexidine 2% Cloth) 3 pack UNSCH PRN TOP 04/28/16 17:30 (NS Flush) 2 ml UNSCH PRN IV FLUSH 04/28/16 17:45 (NS Flush) 2 ml BID IV FLUSH 04/28/16 21:00 04/29/16 08:10 (Romazicon Inj) 0.2 mg Q1M PRN IV PUSH 04/28/16 17:45 (Ativan) 1 mg Q4H PRN PO 04/28/16 17:45 (Ativan Inj) 1 mg Q4H PRN IV PUSH 04/28/16 17:45 04/29/16 05:15 (Ativan) 2 mg Q2H PRN PO 04/28/16 17:45 (Ativan Inj) 2 mg Q2H PRN IV PUSH 04/28/16 17:45 04/29/16 16:07 (Ativan Inj) 2 mg Q1H PRN IV PUSH 04/28/16 17:45 Lorazepam 2 mg 2 mg Q15M PRN IV PUSH 04/28/16 17:45 Multivitamins 10 ml/Thiamine HCl 100 mg/Folic Acid 1 mg/Sodium Chloride 511.2 ml @ 125 mls/hr DAILY IV 04/28/16 20:00 05/01/16 19:59 04/29/16 08:47 Potassium Chloride 100 ml @ 50 mls/hr Q2H PRN IV 04/28/16 17:45 (KCl 20 Meq Premix Inj) 100 ml @ 50 mls/hr Q2H PRN IV 04/28/16 17:45 Potassium Chloride 40 meq 40 meq UNSCH PRN PO/TUBE 04/28/16 17:45 04/29/16 06:38 Potassium Chloride 100 ml @ 25 mls/hr UNSCH PRN IV 04/28/16 17:45 Potassium Chloride 100 ml @ 50 mls/hr Q2H PRN IV 04/28/16 17:45 (Magnesium Sulfate Inj/NS Inj) 100 ml @ 50 mls/hr UNSCH PRN IV 04/28/16 17:45 Magnesium Oxide 800 mg 800 mg UNSCH PRN PO 04/28/16 17:45 04/29/16 08:47 (Magnesium Sulfate Inj/NS Inj) 100 ml @ 50 mls/hr UNSCH PRN IV 04/28/16 17:45 Potassium Phosphate 2000 mg 2,000 mg Q4H PRN PO 04/28/16 17:45 (Sodium Phosphate Inj/NS 250 ml Inj) 250 ml @ 42 mls/hr UNSCH PRN IV 04/28/16 17:45 (KCl 40 Meq/30 ml Liq) 40 meq UNSCH PRN PO/TUBE 04/28/16 17:45 Potassium Phosphate 2000 mg 2,000 mg UNSCH PRN PO/TUBE 04/28/16 17:45 (Potassium Phosphate Inj/NS 250 ml Inj) 260 ml @ 42 mls/hr UNSCH PRN IV 04/28/16 17:45 Sodium Hypochlorite 500 ml 500 ml BID TOPICAL 04/28/16 21:00 04/29/16 10:23 Pharmacy Profile Note 0 ml @ 0 mls/hr UNSCH XX 04/29/16 13:45 (Zosyn 4.5 Gm Premix) 100 ml @ 200 mls/hr Q6H IV 04/29/16 14:00 04/29/16 17:02 Miscellaneous Information 1 Q361D XX 04/29/16 13:45 (Chlorhexidine 2% Cloth) 3 pack Taper DAILY@04 TOP 04/30/16 04:00 04/26/17 03:59 (Chlorhexidine 2% Cloth) 3 pack UNSCH PRN TOP 04/29/16 13:45 Nicotine 1 patch 1 patch DAILY TD 04/30/16 09:00 (Vancomycin Inj/ NS 500 ml Inj) 520 ml @ 250 mls/hr Q12H IV 04/29/16 15:00 04/29/16 17:02 Miscellaneous Information SPECIFIC LAB TO BE DRAWN:VANCOMYCIN TROUGH DATE TO... ONCE ONCE XX 05/01/16 14:45 05/01/16 14:46 Family History Father with diabetes. Mother with colon cancer. Social History 5 beers per day. One half pack per day tobacco. History of IV drug use. Physical Exam Vital Signs Vital Signs Date Time Temp Pulse Resp B/P Pulse Ox O2 Delivery O2 Flow Rate FiO2 04/29/16 12:00 119 04/29/16 12:00 99.8 113 26 104/61 94 04/29/16 10:00 116 04/29/16 08:00 98.7 104 17 107/62 96 04/29/16 08:00 103 04/29/16 07:42 97 Nasal Cannula 2.00 04/29/16 07:00 94 Nasal Cannula 4.00 04/29/16 06:00 90 04/29/16 04:00 97.6 85 13 110/69 100 04/29/16 04:00 85 04/29/16 03:29 18 04/29/16 02:00 79 04/29/16 00:00 73 04/29/16 00:00 97.6 73 16 92/51 100 04/28/16 21:13 99 Nasal Cannula 4.00 04/28/16 21:00 97.7 81 12 113/75 98 04/28/16 21:00 61 04/28/16 20:40 97.6 84 18 97/63 96 Nasal Cannula 4 04/28/16 20:03 96 Nasal Cannula 4.00 04/28/16 19:33 97.6 72 18 105/60 97 Nasal Cannula 2 04/28/16 18:00 72 16 141/65 94 Room Air 04/28/16 16:35 92.0 04/28/16 16:00 56 16 99/53 97 Nasal Cannula 4 04/28/16 15:00 57 16 101/61 97 Nasal Cannula 4 04/28/16 14:14 97 Nasal Cannula 4.00 04/28/16 14:14 97 4.00 04/28/16 14:06 91.5 04/28/16 14:06 14 97 Nasal Cannula 4 Physical Exam GENERAL: This is a well-nourished, well-developed patient, in no apparent distress. Overall poor hygiene. SKIN: No rashes. HEAD: Atraumatic. Normocephalic. Posterior scalp area with scab from prior head injury. No e/o local infection, induration or fluctuance. EYES: Pupils equal round and reactive. Extraocular motions intact. No scleral icterus. No injection or drainage. ENT: Nose without bleeding, purulent drainage or septal hematoma. Throat without erythema, tonsillar hypertrophy or exudate. Uvula midline. Airway patent. NECK: Trachea midline. No JVD or lymphadenopathy. Supple, nontender, no meningeal signs. CARDIOVASCULAR: Regular rate and rhythm without murmurs, gallops, or rubs. RESPIRATORY: Clear to auscultation. Breath sounds equal bilaterally. No wheezes , rales, or rhonchi. GASTROINTESTINAL: Abdomen soft, non-tender, nondistended. MUSCULOSKELETAL: Extremities without clubbing, cyanosis, or edema. No joint tenderness, effusion, or edema noted. No calf tenderness. Negative Homans sign bilaterally. NEUROLOGICAL: Awake and alert. Grossly non focal Psych: cooperative IV line sites with no e/o infection. Laboratory Laboratory Tests Test 04/28/16 04/28/16 04/28/16 04/28/16 14:00 15:17 18:40 21:15 White Blood Count 4.6 Red Blood Count 4.43 Hemoglobin 14.6 Hematocrit 43.8 Mean Corpuscular Volume 98.8 Mean Corpuscular Hemoglobin 32.9 Mean Corpuscular Hemoglobin 33.3 Concent Red Cell Distribution Width 15.4 Platelet Count 181 Mean Platelet Volume 7.1 Neutrophils (%) (Auto) 15.1 Lymphocytes (%) (Auto) 69.9 Monocytes (%) (Auto) 9.7 Eosinophils (%) (Auto) 2.1 Basophils (%) (Auto) 3.2 Neutrophils # (Auto) 0.7 Lymphocytes # (Auto) 3.2 Monocytes # (Auto) 0.4 Eosinophils # (Auto) 0.1 Basophils # (Auto) 0.1 CBC Comment AUTO DIFF Differential Total Cells 100 Counted Neutrophils % (Manual) 14 Lymphocytes % 77 Monocytes % 5 Basophils % 4 Neutrophils # (Manual) 0.6 Differential Comment FINAL DIFF MANUAL Platelet Estimate NORMAL Platelet Morphology Comment NORMAL Target Cells 1+ Tear Drop Cells 1+ Prothrombin Time 12.0 Prothromb Time International 1.1 Ratio Activated Partial 27.3 Thromboplast Time Sodium Level 148 Potassium Level 3.2 Chloride Level 108 Carbon Dioxide Level 26.5 Anion Gap 14 Blood Urea Nitrogen 7 Creatinine 0.40 Estimat Glomerular Filtration 222 Rate Random Glucose 107 Lactic Acid Level 3.1 2.9 Calcium Level 7.6 Phosphorus Level 2.9 Magnesium Level 2.0 Total Bilirubin 0.5 Aspartate Amino Transf 257 (AST/SGOT) Alanine Aminotransferase 151 (ALT/SGPT) Alkaline Phosphatase 96 Ammonia 22 Total Creatine Kinase 91 Troponin I LESS THAN 0.02 Total Protein 7.2 Albumin 3.1 Lipase 175 Thyroid Stimulating Hormone 0.871 3rd Gen Salicylates Level 2.4 Acetaminophen Level LESS THAN 2.0 Ethyl Alcohol Level 558 Urine Color LIGHT-YELLOW Urine Turbidity HAZY Urine pH 5.5 Urine Specific Scobey 1.005 Urine Protein NEG Urine Glucose (UA) NEG Urine Ketones NEG Urine Occult Blood NEG Urine Nitrite NEG Urine Bilirubin NEG Urine Urobilinogen LESS THAN 2.0 Urine Leukocyte Esterase LARGE Urine RBC 6 Urine WBC 44 Urine WBC Clumps FEW Urine Squamous Epithelial 1 Cells Urine Transitional Epithelial <1 Cells Urine Renal Epithelial Cells <1 Urine Bacteria OCC Urine Hyaline Casts 1 Urine Mucus FEW Microscopic Urinalysis Comment CATH-CULTURE IND Urine Opiates Screen NEG Urine Barbiturates Screen NEG Urine Amphetamines Screen NEG Urine Benzodiazepines Screen POS Urine Cocaine Screen NEG Urine Cannabinoids Screen NEG Random Cortisol 13.5 Nasal Screen MRSA (PCR) NEGATIVE Test 04/29/16 04/29/16 04:08 09:34 White Blood Count 5.5 Red Blood Count 3.44 Hemoglobin 11.3 Hematocrit 33.8 Mean Corpuscular Volume 98.3 Mean Corpuscular Hemoglobin 32.9 Mean Corpuscular Hemoglobin 33.5 Concent Red Cell Distribution Width 15.3 Platelet Count 143 Mean Platelet Volume 7.1 Neutrophils (%) (Auto) 51.5 Lymphocytes (%) (Auto) 30.4 Monocytes (%) (Auto) 14.1 Eosinophils (%) (Auto) 1.7 Basophils (%) (Auto) 2.3 Neutrophils # (Auto) 2.8 Lymphocytes # (Auto) 1.7 Monocytes # (Auto) 0.8 Eosinophils # (Auto) 0.1 Basophils # (Auto) 0.1 CBC Comment DIFF FINAL Differential Comment Prothrombin Time 12.7 Prothromb Time International 1.1 Ratio Activated Partial 29.7 Thromboplast Time Sodium Level 146 Potassium Level 3.4 3.7 Chloride Level 110 Carbon Dioxide Level 25.1 Anion Gap 11 Blood Urea Nitrogen 6 Creatinine 0.63 Estimat Glomerular Filtration 131 Rate Random Glucose 91 Lactic Acid Level 3.1 Calcium Level 6.9 Protein Corrected Calcium 7.7 Phosphorus Level 2.7 Magnesium Level 1.3 Total Bilirubin 0.5 Aspartate Amino Transf 184 (AST/SGOT) Alanine Aminotransferase 111 (ALT/SGPT) Alkaline Phosphatase 71 Total Protein 5.5 Albumin 2.4 Date/Time Procedure Status Source Growth 04/28/16 15:17 Urine Culture Received Urine Catheterized Urine Pending 04/28/16 14:02 Aerobic Blood Culture - Preliminary Resulted Blood Peripheral Gram Positive Cocci 04/28/16 14:02 Anaerobic Blood Culture - Preliminary Resulted Gram Positive Cocci Result Diagram: 04/29/16 0408 04/29/16 0934 Imaging Last Impressions Head CT 04/28/16 1401 Signed Impressions: Service Date/Time: Thursday, April 28, 2016 14:33 - CONCLUSION: No acute disease. Dell Tang MD FACR Chest X-Ray 04/28/16 1401 Signed Impressions: Service Date/Time: Thursday, April 28, 2016 14:26 - CONCLUSION: No acute disease. Dell Tang MD FACR Assessment and Plan Assessment and Plan Sepsis present on admission. Gram positive bacteremia H/o Hepatitis C IVDA Alcoholism Recs: Repeat blood cultures x 2 stat Start Zosyn IV Start Vanco IV (target trough 15-20) Follow cultures follow clinically. Concern for IVDA related infection. Rosio Allen MD Apr 29, 2016 13:59
--- NOTE | 2016-04-29 14:03 | HHI.CCPN ---
Subjective Remarks/Hospital Course 55-year-old male. Date of admission 04/28/2016. 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 Patient was found at home by the fire department sitting up on his tile floor at home surrounded by alcohol bottles. He was hypothermic and able to speak a few words. He is transferred to [facility] for further evaluation. Here, CT head negative. Chest x-ray revealed no acute cardio pulmonic spinous. He is in sinus bradycardia and hypothermic. Rewarming device was provided. He is currently on 4 L nasal cannula opening eyes and protecting his airway. Alcohol level 558 and lactic acidosis at 3.1. Sodium 148 and potassium 3.2. Blood cultures 2 ordered. No obvious source of infection UA cortisol TSH all pending Subjective 04/29 Afebrile. The patient's oriented, looks cultures revealed gram-positive cocci. Repeat lactate level elevated. The patient was placed on empiric antibiotics vancomycin and Zosyn ,ID was consulted, Dr. Allen. Objective Vital Signs Date Time Temp Pulse Resp B/P Pulse Ox O2 Delivery O2 Flow Rate FiO2 04/29/16 12:00 119 04/29/16 12:00 99.8 26 104/61 94 04/29/16 07:42 Nasal Cannula 2.00 Intake and Output 04/28/16 04/28/16 04/28/16 07:59 15:59 23:59 Intake Total 653 ml Balance 653 ml Result Diagram: 04/29/16 0408 04/29/16 0934 Imaging Last Impressions Head CT 04/28/16 1401 Signed Impressions: Service Date/Time: Thursday, April 28, 2016 14:33 - CONCLUSION: No acute disease. Dell Tang MD FACR Chest X-Ray 04/28/16 1401 Signed Impressions: Service Date/Time: Thursday, April 28, 2016 14:26 - CONCLUSION: No acute disease. Dell Tang MD FACR Objective Remarks GENERAL: 55-year-old male, critically ill currently semirecumbent in bed SKIN: Warm and dry. Noted left upper extremity injury HEAD: Atraumatic. Normocephalic. EYES: Pupils equal and round about 3 mm bilaterally and reactive.EOMI. No scleral icterus. No injection or drainage. ENT: No nasal bleeding or discharge. Mucous membranes pink and moist. NECK: Trachea midline. No JVD. CARDIOVASCULAR: Tachycardic, RR. S1, S2 no S4. Without murmur RESPIRATORY: Clear to auscultation. Breath sounds equal bilaterally. GASTROINTESTINAL: Abdomen soft, non-tender, nondistended. Hypoactive bowel sounds MUSCULOSKELETAL: Extremities without no skin peripheral edema. Left hand deformity NEUROLOGICAL: GCS 15. Moves all 4 extremities to commands Urinary Catheter: No Vascular Central Line Catheter: No A/P Assessment and Plan Neuro/Psych: Acute delirium secondary to hypothermia/EtOH-resolved EtOH Headache CT head 04/28 revealed no acute intracranial findings Alcohol level greater than 500 Multivitamin bag daily 2/ of 3 days Monitor for DTs CIWA protocol Tylenol 650 mg every 6 hours when necessary for pain CV: Sinus bradycardia Lactic acidosis Likely secondary hypothermia. No Landaverde waves appreciated Monitor in ICU. Troponin 0.02. Check TSH Serial lactates until clear. Lactate 4.1 Resp: Nasal cannula to maintain saturations greater than equal to 92% Incentive spirometry while awake Chest x-ray 04/28 -reveals no acute cardio pulmonary findings GI: Transaminitis - likely secondary to EtOH Heart healthy diet Protonix for GI prophylaxis Colace/as needed Senokot for bowel regimen EGD in 2007 revealed gastritis and esophagitis. No signs of varices. Recheck CMP in a.m. lipase pending : Isidro for accurate I's and O's in critically ill patient Endo: Hypothermia-resolved Likely secondary to exposure. Glucose monitoring per ICU protocol TSH Cortisol Renal: Creatinine currently within normal limits. Increase normal saline at 84 cc an hour Bolus NaCl x 2 liters Heme: CBC within normal limits. Recheck in a.m. Coags normal ID: Monitor for infection. Blood cultures 2/UA ordered. Influenza pending FEN: Hypernatremia Hypokalemia ICU electrolyte protocol initiated. Replace as clinically indicated MSK: History of MRSA left hand. Dakin solution initiated Access - Utilized peripheral IV. Central line if indicated Prophylaxis - GI - Protonix - DVT - SCD/heparin Critical Care: my billing statement This patient remains critically ill with one or more organ systems which are or may become a threat to life. I have spent in excess of 58 minutes discontinuously in the care and management of this patient. This time is exclusive of procedures, and includes, but is not limited to, evaluation of the patient, review of the medical record, discussions with family, consultants, nursing staff, or respiratory therapy, and documentation in the medical record. Physician Pam Medina MD Apr 29, 2016 14:03
[2016-04-29] MEDS: VANCOMYCIN INJ 2,000 MG in SODIUM CHLORID 0.9% 500 ML INJ 500 ML IV SCH (17:02)
[2016-04-29] MEDS: PIPERACIL-TAZO 4.5 GM PREMIX 100 ML IV SCH ×2 (17:02→20:25)
[2016-04-29] MEDS ORDERED: ACETAMINOPHEN 325 MG TAB PO PRN (18:15)
[2016-04-29 19:39] LABS: LACTIC ACID GHOST NOT REPORTABLE
[2016-04-29] MEDS: LACTATED RINGER'S 1000 ML INJ 1,000 ML IV SCH (20:26)
[2016-04-30] VITALS (13 sets, daily range): BP systolic 108–125; BP diastolic 60–87; PULSE 68–112; RESP 13–23; TEMP 98–99.7; O2SAT 94–98
[2016-04-30] MEDS: PIPERACIL-TAZO 4.5 GM PREMIX 100 ML IV SCH ×4 (02:08→20:36)
[2016-04-30] MEDS: LORazepam 2 MG/ML VIAL IV PUSH PRN ×5 (02:08→18:09)
[2016-04-30] MEDS: MORPHINE SULFATE 4 MG/ML INJ IV PRN ×4 (02:09→20:37)
[2016-04-30] MEDS: VANCOMYCIN INJ 2,000 MG in SODIUM CHLORID 0.9% 500 ML INJ 500 ML IV SCH ×2 (02:33→17:47)
[2016-04-30] MEDS: RESP: ALBUTEROL 2.5 MG/IPRATROPIUM 0.5 MG NEB (SCH) INH ×4 (03:13→22:32)
[2016-04-30] MEDS: CHLORHEXIDINE GLUCONATE 2 % 1 PACK (2 CLOTHS) TOP SCH ×2 (04:00)
[2016-04-30] MEDS: LACTATED RINGER'S 1000 ML INJ 1,000 ML IV SCH ×3 (04:15→20:15)
[2016-04-30] MEDS: HEPARIN SODIUM - SQ 10,000 UNITS/ML VIAL SQ SCH ×2 (04:53→20:36)
--- NOTE | 2016-04-30 07:06 | EKG ---
Date Performed: 04/28/2016 Time Performed: 14:17:58 PTAGE: 55 years EKG: SINUS BRADYCARDIA LEFT ANTERIOR FASCICULAR BLOCK NONSPECIFIC T-WAVE ABNORMALITY ABNORMAL EC G PREVIOUS TRACING : 04/01/2016 14.19 Compared to prior tracing no significant change DOCTOR: Jonathon Welsh Interpretating Date/Time 04/30/2016 07:02:52
[2016-04-30] MEDS: NICOTINE 14 MG/24 HR PATCH TD SCH (08:56)
[2016-04-30] MEDS: PANTOPRAZOLE SODIUM 40 MG VIAL IV SCH (08:56)
[2016-04-30] MEDS: DOCUSATE SODIUM 100 MG CAP PO SCH ×2 (08:57→20:36)
[2016-04-30] MEDS: MULTIVITAMIN INJ 10 ML, THIAMINE INJ 100 MG, FOLIC ACID INJ 1 MG in SODIUM CHLORID 0.9%... IV SCH (09:00)
[2016-04-30] MEDS: ARTIFICIAL TEARS OPTH SOLN 15 ML BTL EACH EYE SCH ×3 (09:00→18:00)
[2016-04-30] MEDS: SODIUM HYPOCHLORITE 0.25% 500 ML BTL TOPICAL SCH ×2 (09:15→20:37)
[2016-04-30] MEDS: SODIUM CHLORIDE 0.9% FLUSH 5 ML FLUSH IV FLUSH SCH ×2 (09:15→20:36)
--- NOTE | 2016-04-30 11:48 | HHI.CCPN ---
Subjective Remarks/Hospital Course 55-year-old male. Date of admission 04/28/2016. 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 Patient was found at home by the fire department sitting up on his tile floor at home surrounded by alcohol bottles. He was hypothermic and able to speak a few words. He is transferred to [facility] for further evaluation. Here, CT head negative. Chest x-ray revealed no acute cardio pulmonic spinous. He is in sinus bradycardia and hypothermic. Rewarming device was provided. He is currently on 4 L nasal cannula opening eyes and protecting his airway. Alcohol level 558 and lactic acidosis at 3.1. Sodium 148 and potassium 3.2. Blood cultures 2 ordered. No obvious source of infection UA cortisol TSH all pending Subjective 04/29 Afebrile. The patient's oriented, looks cultures revealed gram-positive cocci. Repeat lactate level elevated. The patient was placed on empiric antibiotics vancomycin and Zosyn ,ID was consulted, Dr. Allen. 04/30 Tmax 100.2. Overnight there were no issues patient was noted to be tremulous at intervals received Ativan per CIWA. protocol. The patient was noted to have gram-positive cocci in the blood, broad-spectrum antibiotics were initiated vancomycin and Zosyn, the patient was bolused with IV fluid remained normotensive throughout the night. Echo pending to rule out endocarditis. Objective Vital Signs Date Time Temp Pulse Resp B/P Pulse Ox O2 Delivery O2 Flow Rate FiO2 04/30/16 07:47 96 21 04/30/16 06:00 97 04/30/16 04:00 99.4 13 112/60 04/29/16 20:00 Nasal Cannula 2.00 Intake and Output 04/29/16 04/29/16 04/30/16 08:00 16:00 00:00 Intake Total 1435 ml 3179 ml 3669 ml Output Total 550 ml 540 ml 1600 ml Balance 885 ml 2639 ml 2069 ml Result Diagram: 04/29/16 0408 04/30/16 0318 Imaging Last Impressions Head CT 04/28/16 1401 Signed Impressions: Service Date/Time: Thursday, April 28, 2016 14:33 - CONCLUSION: No acute disease. Dell Tang MD FACR Chest X-Ray 04/28/161400 Signed Impressions: Service Date/Time: Thursday, April 28, 2016 14:26 - CONCLUSION: No acute disease. Dell Tang MD FACR Last Impressions Head CT 04/28/161400 Signed Impressions: Service Date/Time: Thursday, April 28, 2016 14:33 - CONCLUSION: No acute disease. Dell Tang MD FACR Chest X-Ray 04/28/161400 Signed Impressions: Service Date/Time: Thursday, April 28, 2016 14:26 - CONCLUSION: No acute disease. Dell Tang MD FACR Objective Remarks GENERAL: 55-year-old male, alert and oriented in no distress SKIN: Warm and dry. Noted posterior occipital healing wound. Noted skin bruise right lower anterior leg. HEAD: Atraumatic. Normocephalic. Occipital healing scabbed area without erythema/drainage EYES: Pupils equal and round about 3 mm bilaterally and reactive.EOMI. No scleral icterus. No injection or drainage. ENT: No nasal bleeding or discharge. Mucous membranes pink and moist. NECK: Trachea midline. No JVD. CARDIOVASCULAR: Regular rate and rhythm. S1, S2 no S4. Without murmur RESPIRATORY: Clear to auscultation. Breath sounds equal bilaterally. GASTROINTESTINAL: Abdomen soft, non-tender, nondistended. Normoactive bowel sounds MUSCULOSKELETAL: Extremities without no skin peripheral edema. NEUROLOGICAL: GCS 15. Moves all 4 extremities to commands Urinary Catheter: No Vascular Central Line Catheter: No A/P Assessment and Plan Neuro/Psych: Acute delirium secondary to hypothermia/EtOH-resolved EtOH Headache-resolved CT head 04/28 revealed no acute intracranial findings Alcohol level greater than 500 Multivitamin bag daily 3 of 3 days Monitor for DTs CIWA protocol Tylenol 650 mg every 6 hours when necessary for pain CV: Sinus bradycardia-resolved Lactic acidosis-resolved Normal sinus rhythm Troponin 0.02. TSH-within normal limits Lactate 1.6 Resp: Maintain O2 sat greater than 92%, patient currently on room air Incentive spirometry while awake, currently 1500 cc per breath Chest x-ray 04/28 -reveals no acute cardio pulmonary findings GI: Transaminitis - likely secondary to EtOH, Hepatitis C Heart healthy diet-tolerating well Protonix for GI prophylaxis Colace/as needed Senokot for bowel regimen EGD in 2007 revealed gastritis and esophagitis. No signs of varices. Serology 2/2- hepatitis C : -No Felix Endo: Hypothermia-resolved Likely secondary to exposure. Glucose monitoring per ICU protocol TSH Cortisol Renal: Creatinine0.6 Increase normal saline at 84 cc an hour LR @125/hr Heme: CBC within normal limits. Recheck in a.m. Coags normal ID: Hepatitis C MRSA Blood [id number] cocci, staph coagulase-negative Urine culture-MRSA Monitor WBC FEN: Hypernatremia-resolved Hypokalemia-resolved Monitor BMP ICU electrolyte protocol initiated. Replace as clinically indicated MSK: History of MRSA left hand. Dakin solution initiated PT evaluate and treat/out of bed Access - Utilized peripheral IV. Central line if indicated Prophylaxis - GI - Protonix - DVT - SCD/heparin Dispo: Discussed with patient in STOCK LETTER[employer] at bedside. Plan transfer to medical surgical floor, plan transfer to hospitalist. Critical Care: Level 3 Physician Pam Medina MD Apr 30, 2016 11:48
--- NOTE | 2016-04-30 12:58 | EC ---
Study Study Date:04/30/2016 STUDY CONCLUSIONS SUMMARY - Left ventricle: The cavity size was normal. Wall thickness was normal. Systolic function was normal. The estimated ejection fraction was in the range of 60% to 65%. Wall motion was normal; there were no regional wall motion abnormalities. - Aortic valve: Valve area: 2.53cm^2 (Vmax). Impressions: No evidence of endocarditis. If LV function is below 40, please consider prescribing an ACEI or ARB or document rationale for non-use. PROCEDURE DATA STUDY STATUS: Elective. Procedure: Transthoracic echocardiography. Image quality was good. Scanning was performed from the parasternal, apical, and subcostal acoustic windows. Study completion: The patient tolerated the procedure well. Transthoracic echocardiography. M-mode, complete 2D, complete spectral Doppler, and color Doppler. Height: Height: 72in. Weight: Weight: 210.6lb. Body mass index: BMI: 28.6kg/m^2. Body surface area: BSA: 2.18m^2. Patient status: Inpatient. CARDIAC ANATOMY LEFT VENTRICLE: The cavity size was normal. Wall thickness was normal. Systolic function was normal. The estimated ejection fraction was in the range of 60% to 65%. Wall motion was normal; there were no regional wall motion abnormalities. AORTIC VALVE: Trileaflet; normal thickness leaflets. Doppler: Transvalvular velocity was within the normal range. There was no stenosis. No regurgitation. Valve area: 2.53cm^2 (Vmax). Indexed valve area: 1.16cm^2/m^2 (Vmax). AORTA: Aortic root: The aortic root was normal in size. MITRAL VALVE: Structurally normal valve. Doppler: Transvalvular velocity was within the normal range. There was no evidence for stenosis. No regurgitation. LEFT ATRIUM: The atrium was normal in size. RIGHT VENTRICLE: The cavity size was normal. Wall thickness was normal. PULMONIC VALVE: Doppler: Transvalvular velocity was within the normal range. There was no evidence for stenosis. No regurgitation. TRICUSPID VALVE: Structurally normal valve. Doppler: Transvalvular velocity was within the normal range. Trace regurgitation. PULMONARY ARTERY: The main pulmonary artery was normal-sized. Systolic pressure was within the normal range. RIGHT ATRIUM: The atrium was normal in size. PERICARDIUM: There was no pericardial effusion. SYSTEMIC VEINS: Inferior vena cava: The vessel was normal in size. Patient weight: 210.6lb _Ejection fraction:_ 65-75% _Fractional shortening:_ 32% up to 5Kg 5-11.5Kg 11.6-22.9Kg 23-45Kg 45-57Kg Aortic Root 7-13 <17 13-22 17-27 17-27 LA diam 6-13 <23 24-38 33-47 37-40 RVID 10-17 7-15 7-15 7-18 8-17 LVIDd 12-22 <32 24-38 33-47 37-40 LVPW 2-4 3-6 5-7 6-8 7-8 IVS 2-4 3-6 5-7 6-8 7-8 BASIC MEASUREMENTS ADULT NORMAL Left ventricle LV internal dimension, ED, chordal 44 mm 43-52 level, PLAX LV internal dimension, ES, chordal 31.4 mm 23-38 level, PLAX Fractional shortening, chordal level, *29 % >29 PLAX LV posterior wall thickness, ED 9.5 mm IVS/LVPW ratio, ED 0.96 <1.3 Ventricular septum Septal thickness, ED 9.08 mm Aortic valve Leaflet separation 21 mm 15-26 BASIC MEASUREMENTS ADULT NORMAL Aortic valve Leaflet separation 21 mm 15-26 Aorta Root diameter, ED 32 mm 20-37 Left atrium Anterior-posterior dimension, ES 34 mm 19-40 Anterior-posterior dimension index, ES 1.56 cm/m^2 <2.2 LA/aortic root ratio 1.06 DOPPLER MEASUREMENTS ADULT NORMAL Main pulmonary artery Pressure, S 20 mm Hg =30 Aortic valve Peak velocity, S 111 cm/s Valve area, Vmax 2.53 cm^2 Valve area index, Vmax 1.16 cm^2/m^2 Mitral valve Peak E-wave velocity 49.4 cm/s Peak A-wave velocity 63.2 cm/s Deceleration time *120 ms 150-230 Peak E/A ratio 0.8 Tricuspid valve Regurgitant peak velocity 186 cm/s Peak RV-RA gradient, S 14 mm Hg Maximal regurgitant velocity 186 cm/s Systemic veins Estimated CVP 10 mm Hg Right ventricle RV pressure, S 24 mm Hg <30 Pulmonic valve Peak velocity, S 105 cm/s LEGEND: Mean values are shown as u=mean value. Asterisk (*) donato values outside specified normal range. Prepared and signed by Alaina Canada [id number]
--- NOTE | 2016-04-30 13:33 | HHI.IDPN ---
Subjective Subjective Remarks Mr. Lagos is a 55 y/o CM with PMHx of Hepatitis C, IVDA, claustrophobia, Alcoholism, Hypertension, Depression, H/o MRSA infection to the left hand. With this background patient was admitted at [facility] on 04/29/2016 as patient was found at home by the fire department sitting up on his tile floor at home surrounded by alcohol bottles. He was hypothermic and able to speak a few words. He is transferred to [facility] for further evaluation. Overnight events reviewed. No fevers No rash No diarrhea Awake alert follows commands. Antibiotics Zosyn IV Vanco IV Lines Line sites with no e/o infection. Past Medical History reviewed Allergies: Coded Allergies: *MDRO Multi-Drug Resistant Organism (Verified Adverse Reaction, Unknown, ) MRSA (urine)-04/28/16 Objective . Vital Signs Date Time Temp Pulse Resp B/P Pulse Ox O2 Delivery O2 Flow Rate FiO2 04/30/16 07:47 96 21 04/30/16 06:00 97 04/30/16 04:00 99.4 92 13 112/60 94 04/30/16 04:00 97 04/30/16 02:14 20 04/30/16 02:00 92 04/30/16 00:00 99.7 100 22 116/72 96 04/30/16 00:00 112 04/29/16 23:04 96 21 04/29/16 20:00 Nasal Cannula 2.00 96 04/29/16 20:00 100.2 102 24 111/69 96 04/29/16 18:00 112 04/29/16 16:00 99.9 116 20 104/61 92 04/29/16 16:00 116 04/29/16 15:36 95 21 04/29/16 14:00 107 04/29/16 04/29/16 04/30/16 15:00 23:00 07:00 Intake Total 3179 ml 3669 ml 2135 ml Output Total 540 ml 1600 ml 2400 ml Balance 2639 ml 2069 ml -265 ml Intake Oral 760 ml 650 ml 400 ml IV Total 2419 ml 3019 ml 1735 ml Output Urine Total 540 ml 1600 ml 2400 ml # Voids 4 # Bowel Movements 0 2 0 . Laboratory Tests Test 04/28/16 04/29/16 14:00 04:08 White Blood Count 4.6 TH/MM3 5.5 TH/MM3 Red Blood Count 4.43 MIL/MM3 3.44 MIL/MM3 Hemoglobin 14.6 GM/DL 11.3 GM/DL Hematocrit 43.8 % 33.8 % Mean Corpuscular Volume 98.8 FL 98.3 FL Mean Corpuscular Hemoglobin 32.9 PG 32.9 PG Mean Corpuscular Hemoglobin 33.3 % 33.5 % Concent Red Cell Distribution Width 15.4 % 15.3 % Platelet Count 181 TH/MM3 143 TH/MM3 Mean Platelet Volume 7.1 FL 7.1 FL Neutrophils (%) (Auto) 15.1 % 51.5 % Lymphocytes (%) (Auto) 69.9 % 30.4 % Monocytes (%) (Auto) 9.7 % 14.1 % Eosinophils (%) (Auto) 2.1 % 1.7 % Basophils (%) (Auto) 3.2 % 2.3 % Neutrophils # (Auto) 0.7 TH/MM3 2.8 TH/MM3 Lymphocytes # (Auto) 3.2 TH/MM3 1.7 TH/MM3 Monocytes # (Auto) 0.4 TH/MM3 0.8 TH/MM3 Eosinophils # (Auto) 0.1 TH/MM3 0.1 TH/MM3 Basophils # (Auto) 0.1 TH/MM3 0.1 TH/MM3 CBC Comment AUTO DIFF DIFF FINAL Differential Total Cells 100 Counted Neutrophils % (Manual) 14 % Lymphocytes % 77 % Monocytes % 5 % Basophils % 4 % Neutrophils # (Manual) 0.6 TH/MM3 Differential Comment FINAL DIFF MANUAL Platelet Estimate NORMAL Platelet Morphology Comment NORMAL Target Cells 1+ Tear Drop Cells 1+ Laboratory Tests Test 04/28/16 04/28/16 04/29/16 04/29/16 14:00 18:40 04:08 09:34 Sodium Level 148 MEQ/L 146 MEQ/L Potassium Level 3.2 MEQ/L 3.4 MEQ/L 3.7 MEQ/L Chloride Level 108 MEQ/L 110 MEQ/L Carbon Dioxide Level 26.5 MEQ/L 25.1 MEQ/L Anion Gap 14 MEQ/L 11 MEQ/L Blood Urea Nitrogen 7 MG/DL 6 MG/DL Creatinine 0.40 MG/DL 0.63 MG/DL Estimat Glomerular Filtration 222 ML/MIN 131 ML/MIN Rate Random Glucose 107 MG/DL 91 MG/DL Lactic Acid Level 3.1 mmol/L 2.9 mmol/L 3.1 mmol/L Calcium Level 7.6 MG/DL 6.9 MG/DL Phosphorus Level 2.9 MG/DL 2.7 MG/DL Magnesium Level 2.0 MG/DL 1.3 MG/DL Total Bilirubin 0.5 MG/DL 0.5 MG/DL Aspartate Amino Transf 257 U/L 184 U/L (AST/SGOT) Alanine Aminotransferase 151 U/L 111 U/L (ALT/SGPT) Alkaline Phosphatase 96 U/L 71 U/L Ammonia 22 MCMOL/L Total Creatine Kinase 91 U/L Troponin I LESS THAN 0.02 NG/ML Total Protein 7.2 GM/DL 5.5 GM/DL Albumin 3.1 GM/DL 2.4 GM/DL Lipase 175 U/L Thyroid Stimulating Hormone 0.871 uIU/ML 3rd Gen Random Cortisol 13.5 MCG/DL Protein Corrected Calcium 7.7 MG/DL Test 04/29/16 04/30/16 04/30/16 17:29 02:19 03:18 Lactic Acid Level 4.4 mmol/L 1.6 mmol/L C-Reactive Protein 0.81 MG/DL Creatinine 0.64 MG/DL Estimat Glomerular Filtration 129 ML/MIN Rate Microbiology Date/Time Procedure Status Source Growth 04/28/16 13:53 Aerobic Blood Culture - Preliminary Resulted Blood Peripheral Staph Sp Coagulase Negative Gram Negative Dominic 04/28/16 13:53 Anaerobic Blood Culture - Preliminary Resulted Group D Enterococcus Staphylococcus Species 04/28/16 14:02 Aerobic Blood Culture - Preliminary Resulted Blood Peripheral Group D Enterococcus Staphylococcus Species Gram Negative Dominic 04/28/16 14:02 Anaerobic Blood Culture - Preliminary Resulted Streptococcus Species Staphylococcus Species 04/28/16 15:17 Urine Culture - Preliminary Resulted Urine Catheterized Urine S. Aureus Mrsa 04/29/16 17:22 Aerobic Blood Culture - Preliminary Resulted Blood Peripheral NO GROWTH IN 1 DAY 04/29/16 17:22 Anaerobic Blood Culture - Preliminary Resulted Blood Peripheral NO GROWTH IN 1 DAY 04/29/16 17:29 Aerobic Blood Culture - Preliminary Resulted Blood Peripheral NO GROWTH IN 1 DAY 04/29/16 17:29 Anaerobic Blood Culture - Preliminary Resulted Blood Peripheral NO GROWTH IN 1 DAY Imaging Last Impressions Head CT 04/28/16 1401 Signed Impressions: Service Date/Time: Thursday, April 28, 2016 14:33 - CONCLUSION: No acute disease. Dell Tang MD FACR Chest X-Ray 04/28/16 1401 Signed Impressions: Service Date/Time: Thursday, April 28, 2016 14:26 - CONCLUSION: No acute disease. Dell Tang MD FACR Physical Exam GENERAL: This is a well-nourished, well-developed patient, in no apparent distress. Overall poor hygiene. SKIN: No rashes. HEAD: Atraumatic. Normocephalic. Posterior scalp area with scab from prior head injury. No e/o local infection, induration or fluctuance. EYES: Pupils equal round and reactive. Extraocular motions intact. No scleral icterus. No injection or drainage. ENT: Nose without bleeding, purulent drainage or septal hematoma. Throat without erythema, tonsillar hypertrophy or exudate. Uvula midline. Airway patent. NECK: Trachea midline. No JVD or lymphadenopathy. Supple, nontender, no meningeal signs. CARDIOVASCULAR: Regular rate and rhythm without murmurs, gallops, or rubs. RESPIRATORY: Clear to auscultation. Breath sounds equal bilaterally. No wheezes , rales, or rhonchi. GASTROINTESTINAL: Abdomen soft, non-tender, nondistended. MUSCULOSKELETAL: Extremities without clubbing, cyanosis, or edema. No joint tenderness, effusion, or edema noted. No calf tenderness. Negative Homans sign bilaterally. NEUROLOGICAL: Awake and alert. Grossly non focal Psych: cooperative IV line sites with no e/o infection. Assessment & Plan Remarks Sepsis present on admission. Grp D Enterococcus, staph species, Gram negative bacteremia. H/o Hepatitis C IVDA Alcoholism Recs: Continue Zosyn IV Continue Vanco IV (target trough 15-20) Follow cultures follow clinically. Concern for IVDA related infection. Shower if ok with CCM. concern for hygiene. May cause new infections. to cover for me this weekend. Rosio Allen MD Apr 30, 2016 13:32
[2016-04-30 13:52] LABS: AUTOMATED NEUTROPHIL # 1.3 TH/MM3 (1.8-7.7); BASOPHIL # 0.1 TH/MM3 (0-0.2); BASOPHIL % 2.4 % (0.0-2.0); EOSINOPHIL # 0.1 TH/MM3 (0-0.4); EOSINOPHIL % 5.1 % (0.0-4.0); HEMATOCRIT 32.1 % (39.0-51.0); LYMPH % 27.1 % (9.0-44.0); LYMPHOCYTE # 0.8 TH/MM3 (1.0-4.8); MEAN CELL VOLUME 97.4 FL (80.0-100.0); MEAN CORPUSCULAR HEMOGLOBIN 32.6 PG (27.0-34.0); MEAN CORPUSCULAR HGB CONC 33.5 % (32.0-36.0); MONO % 18.6 % (0.0-8.0); NEUT % 46.8 % (16.0-70.0); PLATELET COUNT 85 TH/MM3 (150-450); RED BLOOD COUNT 3.29 MIL/MM3 (4.50-5.90); RED CELL DISTRIBUTION WIDTH 15.7 % (11.6-17.2); WHITE BLOOD COUNT 2.8 TH/MM3 (4.0-11.0)
[2016-04-30 13:55] LABS: HEMO FLAGS AUTO DIFF
[2016-04-30 14:24] LABS: BICARBONATE 29.2 MEQ/L (21.0-32.0); MAGNESIUM 1.5 MG/DL (1.5-2.5); POTASSIUM 3.6 MEQ/L (3.5-5.1)
[2016-04-30 14:30] LABS: PLATELET ESTIMATE SMEAR LOW (NORMAL); PLATELET MORPHOLOGY NORMAL (NORMAL); SCAN/DIFF AUTO DIFF CONFIRMED
[2016-04-30] MEDS: REMOVE OLD NICODERM (NICOTINE) PATCH TD SCH (20:36)
[2016-04-30] MEDS: LORazepam 2 MG TAB PO PRN (23:23)
[2016-05-01] VITALS (7 sets, daily range): BP systolic 119–146; BP diastolic 68–101; PULSE 63–94; RESP 18–20; TEMP 96–98.9; O2SAT 96–99
[2016-05-01] MEDS: PIPERACIL-TAZO 4.5 GM PREMIX 100 ML IV SCH ×4 (02:00→20:49)
[2016-05-01] MEDS: LORazepam 2 MG/ML VIAL IV PUSH PRN ×3 (03:35→15:46)
[2016-05-01] MEDS: CHLORHEXIDINE GLUCONATE 2 % 1 PACK (2 CLOTHS) TOP SCH (04:00)
[2016-05-01] MEDS: VANCOMYCIN INJ 2,000 MG in SODIUM CHLORID 0.9% 500 ML INJ 500 ML IV SCH ×2 (04:10→16:21)
[2016-05-01] MEDS: HEPARIN SODIUM - SQ 10,000 UNITS/ML VIAL SQ SCH ×2 (06:25→17:08)
[2016-05-01] MEDS: PANTOPRAZOLE SODIUM 40 MG VIAL IV SCH (08:50)
[2016-05-01] MEDS: ARTIFICIAL TEARS OPTH SOLN 15 ML BTL EACH EYE SCH ×3 (08:50→17:07)
[2016-05-01] MEDS: DOCUSATE SODIUM 100 MG CAP PO SCH ×2 (08:50→20:51)
[2016-05-01] MEDS: SODIUM CHLORIDE 0.9% FLUSH 5 ML FLUSH IV FLUSH SCH ×2 (08:50→20:51)
[2016-05-01] MEDS: NICOTINE 14 MG/24 HR PATCH TD SCH (08:51)
[2016-05-01] MEDS: SODIUM HYPOCHLORITE 0.25% 500 ML BTL TOPICAL SCH ×2 (08:51→21:01)
--- NOTE | 2016-05-01 10:17 | HHI.PR ---
Subjective Remarks Follow-up for bacteremia Patient not the best historian. A febrile. No complaints. Denies any shortness of breath, urinary symptoms, abdominal pain or diarrhea. Objective Vitals Vital Signs Date Time Temp Pulse Resp B/P Pulse Ox O2 Delivery O2 Flow Rate FiO2 05/01/16 09:55 98.5 80 20 126/85 96 05/01/16 06:00 97.9 69 18 120/68 99 05/01/16 00:30 98.9 92 18 121/80 97 04/30/16 22:33 98 21 04/30/16 20:00 100 04/30/16 20:00 99.4 94 22 123/87 95 04/30/16 16:00 96 04/30/16 16:00 98.3 107 23 125/68 94 04/30/16 14:00 107 04/30/16 12:00 98.8 89 16 108/80 94 04/30/16 12:00 92 I/O 04/30/16 04/30/16 04/30/16 05/01/16 05/01/16 05/01/16 07:00 15:00 23:00 07:00 15:00 23:00 Intake Total 2135 ml 1882 ml 1694 ml 0 ml Output Total 2400 ml 1750 ml 1700 ml 600 ml Balance -265 ml 132 ml -6 ml -600 ml Intake Oral 400 ml 440 ml 480 ml 0 ml IV Total 1735 ml 1442 ml 1214 ml Output Urine Total 2400 ml 1750 ml 1700 ml 600 ml # Voids 4 2 # Bowel Movements 0 0 0 0 Result Diagram: 04/30/16 1305 04/30/16 1340 Objective Remarks GENERAL: 55-year-old male, alert and oriented in no distress SKIN: Warm and dry. Noted posterior occipital healing wound. Noted skin bruise right lower anterior leg. HEAD: Atraumatic. Normocephalic. Occipital healing scabbed area without erythema/drainage EYES: Pupils equal and round about 3 mm bilaterally and reactive.EOMI. No scleral icterus. NECK: Trachea midline. No JVD. CARDIOVASCULAR: Regular rate and rhythm. S1, S2 no S4. Without murmur RESPIRATORY: Clear to auscultation. Breath sounds equal bilaterally. GASTROINTESTINAL: Abdomen soft, non-tender, nondistended. Normoactive bowel sounds MUSCULOSKELETAL: Extremities without no skin peripheral edema. NEUROLOGICAL: Alert, awake, oriented to place and person. No focal deficits. A/P Problem List: (1) Elevated transaminase level ICD Code: R74.0 Status: Acute (2) Lactic acidosis ICD Code: E87.2 Status: Acute (3) Hypopotassemia ICD Code: E87.6 Status: Acute (4) Hypernatremia ICD Code: E87.0 Status: Acute (5) Alcohol abuse ICD Code: F10.10 Status: Chronic (6) Alcohol intoxication ICD Code: F10.129 Status: Acute (7) Hypothermia ICD Code: T68.XXXA Status: Acute (8) Sinus bradycardia ICD Code: R00.1 Status: Acute (9) Wound abscess ICD Code: T81.4XXA Status: Acute Assessment and Plan Acute delirium secondary to hypothermia/EtOH-resolved, still with mild headache , Tylenol as needed. CT head 04/28 revealed no acute intracranial findings, continue multivitamins, monitor for DTs. Continue CIWA protocol Bacteremia-blood culture positive for gram negative rods, group D enterococcus and Staphylococcus. Infectious disease following, continue Zosyn and vancomycin. Urine culture also growing MRSA. Recheck CBC with mild leukopenia. Monitor renal function. Sinus bradycardia-resolved, troponin negative. Lactic acidosis-resolved Transaminitis - likely secondary to EtOH, Hepatitis C Hypothermia-resolved Protonix for GI prophylaxis Hypokalemia-resolved - DVT - SCD/heparin Problem Qualifiers (1) Alcohol intoxication: Qualified Code: F10.129 - Alcohol intoxication, with unspecified complication (2) Hypothermia: Qualified Code: T68.XXXA - Hypothermia, initial encounter (3) Wound abscess: Qualified Code: T81.4XXS - Wound abscess, sequela Wade Kay MD May 01, 2016 10:17
[2016-05-01] MEDS: RESP: ALBUTEROL 2.5 MG/IPRATROPIUM 0.5 MG NEB (SCH) INH ×3 (10:35→21:40)
[2016-05-01] MEDS: MULTIVITAMIN INJ 10 ML, THIAMINE INJ 100 MG, FOLIC ACID INJ 1 MG in SODIUM CHLORID 0.9%... IV SCH (10:43)
[2016-05-01] MEDS: LACTATED RINGER'S 1000 ML INJ 1,000 ML IV SCH (12:44)
[2016-05-01] MEDS: LORazepam 2 MG TAB PO PRN (12:45)
[2016-05-01] MEDS ORDERED: PHARMACY ORDERED LAB XX ONE (14:45)
[2016-05-01] MEDS: MORPHINE SULFATE 4 MG/ML INJ IV PRN (15:47)
[2016-05-01] MEDS: REMOVE OLD NICODERM (NICOTINE) PATCH TD SCH (20:51)
[2016-05-01] MEDS: LORazepam 1 MG TAB PO PRN (21:10)
[2016-05-01] MEDS: ACETAMINOPHEN 325 MG TAB PO PRN (21:10)
[2016-05-02 00:40] VITALS: BP 122/78; PULSE 68; RESP 20; TEMP 97.9; O2SAT 97
[2016-05-02] MEDS: PIPERACIL-TAZO 4.5 GM PREMIX 100 ML IV SCH ×4 (01:27→21:25)
[2016-05-02] MEDS: MORPHINE SULFATE 4 MG/ML INJ IV PRN ×2 (01:27→05:58)
[2016-05-02] MEDS: LORazepam 1 MG TAB PO PRN ×4 (01:28→17:07)
[2016-05-02] MEDS: LACTATED RINGER'S 1000 ML INJ 1,000 ML IV SCH (01:31)
[2016-05-02] MEDS: RESP: ALBUTEROL 2.5 MG/IPRATROPIUM 0.5 MG NEB (SCH) INH ×4 (03:14→21:27)
[2016-05-02] MEDS: VANCOMYCIN INJ 2,000 MG in SODIUM CHLORID 0.9% 500 ML INJ 500 ML IV SCH ×2 (03:24→13:51)
[2016-05-02] MEDS: CHLORHEXIDINE GLUCONATE 2 % 1 PACK (2 CLOTHS) TOP SCH (04:00)
[2016-05-02 04:46] VITALS: BP 105/56; PULSE 74; RESP 20; TEMP 98.2; O2SAT 95
[2016-05-02] MEDS: HEPARIN SODIUM - SQ 10,000 UNITS/ML VIAL SQ SCH ×2 (05:59→17:07)
[2016-05-02 08:06] VITALS: BP 127/83; PULSE 78; RESP 20; TEMP 98.2; O2SAT 96
[2016-05-02] MEDS: ARTIFICIAL TEARS OPTH SOLN 15 ML BTL EACH EYE SCH ×3 (08:32→17:07)
[2016-05-02] MEDS: DOCUSATE SODIUM 100 MG CAP PO SCH ×2 (08:35→21:00)
[2016-05-02] MEDS: PANTOPRAZOLE SOD 40 MG DELAYED RELEASE TAB PO SCH (08:35)
[2016-05-02] MEDS: SODIUM CHLORIDE 0.9% FLUSH 5 ML FLUSH IV FLUSH SCH ×2 (08:35→21:25)
[2016-05-02] MEDS: SODIUM HYPOCHLORITE 0.25% 500 ML BTL TOPICAL SCH ×2 (08:36→21:00)
[2016-05-02] MEDS: NICOTINE 14 MG/24 HR PATCH TD SCH (08:36)
--- NOTE | 2016-05-02 08:55 | HHI.PR ---
Subjective Remarks Follow-up for headache, MRSA bacteremia Patient still complaining of 8/10 headache despite being on morphine, occipital , not associated with nausea or vomiting, but with mild neck stiffness. Known fever. No cough or diarrhea. Objective Vitals Vital Signs Date Time Temp Pulse Resp B/P Pulse Ox O2 Delivery O2 Flow Rate FiO2 05/02/16 08:06 98.2 78 20 127/83 96 05/02/16 07:13 18 05/02/16 04:46 98.2 74 20 105/56 95 05/02/16 00:40 97.9 68 20 122/78 97 05/01/16 20:00 97.3 87 20 119/79 97 05/01/16 17:24 96 21 05/01/16 15:44 98.6 94 20 130/70 05/01/16 12:23 96.0 63 20 146/101 97 05/01/16 09:55 98.5 80 20 126/85 96 I/O 05/01/16 05/01/16 05/01/16 05/02/16 05/02/16 05/02/16 07:00 15:00 23:00 07:00 15:00 23:00 Intake Total 0 ml 760 ml Output Total 600 ml 925 ml 1475 ml 500 ml Balance -600 ml -925 ml -715 ml -500 ml Intake Oral 0 ml 760 ml Output Urine Total 600 ml 925 ml 1475 ml 500 ml # Voids 2 # Bowel Movements 0 Result Diagram: 04/30/16 1305 04/30/16 1340 Objective Remarks GENERAL: 55-year-old male, alert and oriented in no distress SKIN: Warm and dry. Noted posterior occipital healing wound. Noted skin bruise right lower anterior leg. HEAD: Atraumatic. Normocephalic. Occipital healing scabbed area without erythema/drainage EYES: Pupils equal and round about 3 mm bilaterally and reactive.EOMI. No scleral icterus. NECK: Trachea midline. No JVD. CARDIOVASCULAR: Regular rate and rhythm. S1, S2 no S4. Without murmur RESPIRATORY: Clear to auscultation. Breath sounds equal bilaterally. GASTROINTESTINAL: Abdomen soft, non-tender, nondistended. Normoactive bowel sounds MUSCULOSKELETAL: Extremities without no skin peripheral edema. NEUROLOGICAL: Alert, awake, oriented to place and person. No focal deficits. Negative Kernig's, negative Brudzinski. A/P Problem List: (1) Elevated transaminase level ICD Code: R74.0 Status: Acute (2) Lactic acidosis ICD Code: E87.2 Status: Acute (3) Hypopotassemia ICD Code: E87.6 Status: Acute (4) Hypernatremia ICD Code: E87.0 Status: Acute (5) Alcohol abuse ICD Code: F10.10 Status: Chronic (6) Alcohol intoxication ICD Code: F10.129 Status: Acute (7) Hypothermia ICD Code: T68.XXXA Status: Acute (8) Sinus bradycardia ICD Code: R00.1 Status: Acute (9) Wound abscess ICD Code: T81.4XXA Status: Acute Assessment and Plan Acute delirium secondary to hypothermia/EtOH-resolved, still with mild headache , Tylenol as needed. CT head 04/28 revealed no acute intracranial findings, continue multivitamins, monitor for DTs. Continue CIWA protocol Occipital headache-persistent, not resolved with morphine, check MRI of the head , could just be from contusion. Negative Kernig's and Brudzinski. Bacteremia-blood culture positive for gram negative rods, enterococcus faecalis , viridans Streptococcus and coagulation-negative staph. Infectious disease following, continue Zosyn and vancomycin. Urine culture also growing MRSA. Recheck CBC with mild leukopenia. Monitor renal function. Sinus bradycardia-resolved, troponin negative. Lactic acidosis-resolved Transaminitis - likely secondary to EtOH, Hepatitis C Hypothermia-resolved Protonix for GI prophylaxis Hypokalemia-resolved - DVT - SCD/heparin Problem Qualifiers (1) Alcohol intoxication: Qualified Code: F10.129 - Alcohol intoxication, with unspecified complication (2) Hypothermia: Qualified Code: T68.XXXA - Hypothermia, initial encounter (3) Wound abscess: Qualified Code: T81.4XXS - Wound abscess, sequela Wade Kay MD May 02, 2016 08:55
[2016-05-02] MEDS: ACETAMINOPHEN/HYDROcodone 325 MG/5 MG TAB PO PRN ×3 (09:49→21:24)
[2016-05-02 09:52] LABS: AUTOMATED NEUTROPHIL # 1.8 TH/MM3 (1.8-7.7); BASOPHIL # 0.1 TH/MM3 (0-0.2); BASOPHIL % 1.7 % (0.0-2.0); EOSINOPHIL # 0.5 TH/MM3 (0-0.4); EOSINOPHIL % 11.1 % (0.0-4.0); HEMATOCRIT 32.5 % (39.0-51.0); HEMO FLAGS DIFF FINAL; LYMPH % 38.7 % (9.0-44.0); LYMPHOCYTE # 1.8 TH/MM3 (1.0-4.8); MEAN CELL VOLUME 97.1 FL (80.0-100.0); MEAN CORPUSCULAR HEMOGLOBIN 32.1 PG (27.0-34.0); MEAN CORPUSCULAR HGB CONC 33.1 % (32.0-36.0); MONO % 8.5 % (0.0-8.0); PLATELET COUNT 123 TH/MM3 (150-450); RED BLOOD COUNT 3.34 MIL/MM3 (4.50-5.90); RED CELL DISTRIBUTION WIDTH 16.4 % (11.6-17.2); WHITE BLOOD COUNT 4.5 TH/MM3 (4.0-11.0)
[2016-05-02 10:59] LABS: ALKALINE PHOSPHATASE 68 U/L (45-117); ALT (GPT) 67 U/L (12-78); ANION GAP 9 MEQ/L (5-15); AST (GOT) 94 U/L (15-37); BLOOD UREA NITROGEN 6 MG/DL (7-18); CHLORIDE 105 MEQ/L (98-107); GLOMERULAR FILTRATION RATE 113 ML/MIN (>89); MAGNESIUM 1.7 MG/DL (1.5-2.5); POTASSIUM 3.2 MEQ/L (3.5-5.1); SODIUM (NA) 140 MEQ/L (136-145); TOTAL BILIRUBIN ADULT 1.2 MG/DL (0.2-1.0)
[2016-05-02] MEDS: LORazepam 2 MG/ML VIAL IV PUSH PRN (11:51)
[2016-05-02 12:51] VITALS: BP 101/57; PULSE 70; RESP 20; TEMP 97.5; O2SAT 96
--- NOTE | 2016-05-02 12:51 | RADRPT ---
EXAM DATE/TIME: 05/02/2016 12:05 [facility] COMPARISON: CT BRAIN W/O CONTRAST, April 28, 2016, 14:33. MRI BRAIN W/O CONTRAST, April 01, 2016, 16:00. INDICATIONS : Cephalgia. MEDICAL HISTORY : Hypertension. SURGICAL HISTORY : None applicable. ENCOUNTER: Initial ACUITY: 1 day PAIN SCORE: 5/10 LOCATION: cranial TECHNIQUE: Multiplanar, multisequence MRI of the brain was performed without contrast. FINDINGS: CEREBRUM: The ventricles are normal for age. No evidence of midline shift, mass lesion, hemorrhage or acute in farction. No extraaxial fluid collections are seen. The pituitary gland and suprasellar cistern are normal in configuration. WHITE MATTER: No significant signal abnormalities are seen in the white matter. POSTERIOR FOSSA: The cerebellum and brainstem are intact. The 4th ventricle is midline. The cerebellopontine angle is unremarkable. The cerebellar tonsils are normal in position. DIFFUSION IMAGING: No focal areas of restricted diffusion are seen. No evidence of acute infarction. EXTRACRANIAL: The visualized portions of the orbits and paranasal sinuses are unremarkable. Left-sided scalp lesion . CONCLUSION: No acute intracranial disease. Ritchie Fatima MD on May 02, 2016 at 12:48 Board Certified Radiologist. This report was verified electronically.
[2016-05-02] MEDS ORDERED: POTASSIUM CHLORIDE 20 MEQ CONTROLLED RELEASE TAB PO ONE (13:45)
[2016-05-02 15:55] VITALS: BP 122/74; PULSE 70; RESP 20; TEMP 97.7; O2SAT 96
[2016-05-02 20:35] VITALS: BP 101/57; PULSE 81; RESP 20; TEMP 97.7; O2SAT 96
[2016-05-02] MEDS: REMOVE OLD NICODERM (NICOTINE) PATCH TD SCH (21:00)
[2016-05-03] VITALS (9 sets, daily range): BP systolic 100–125; BP diastolic 60–82; PULSE 65–83; RESP 20–21; TEMP 95.8–98.8; O2SAT 94–97
[2016-05-03] MEDS: ACETAMINOPHEN/HYDROcodone 325 MG/5 MG TAB PO PRN ×5 (01:29→21:48)
[2016-05-03] MEDS: PIPERACIL-TAZO 4.5 GM PREMIX 100 ML IV SCH ×4 (01:29→21:40)
[2016-05-03] MEDS: SODIUM CHLORIDE 0.9% FLUSH 5 ML FLUSH IV FLUSH PRN (01:30)
[2016-05-03] MEDS ORDERED: PHARMACY ORDERED LAB XX ONE ×2 (01:45→02:45)
[2016-05-03] MEDS: LORazepam 1 MG TAB PO PRN (02:54)
[2016-05-03] MEDS: CHLORHEXIDINE GLUCONATE 2 % 1 PACK (2 CLOTHS) TOP SCH (03:31)
[2016-05-03] MEDS: VANCOMYCIN INJ 2,000 MG in SODIUM CHLORID 0.9% 500 ML INJ 500 ML IV SCH ×2 (03:31→15:18)
[2016-05-03] MEDS: HEPARIN SODIUM - SQ 10,000 UNITS/ML VIAL SQ SCH ×2 (06:45→17:40)
[2016-05-03] MEDS: PANTOPRAZOLE SOD 40 MG DELAYED RELEASE TAB PO SCH (08:39)
[2016-05-03] MEDS: DOCUSATE SODIUM 100 MG CAP PO SCH ×2 (08:39→21:41)
[2016-05-03] MEDS: SODIUM HYPOCHLORITE 0.25% 500 ML BTL TOPICAL SCH ×2 (08:40→21:45)
[2016-05-03] MEDS: ARTIFICIAL TEARS OPTH SOLN 15 ML BTL EACH EYE SCH ×3 (08:40→17:40)
[2016-05-03] MEDS: SODIUM CHLORIDE 0.9% FLUSH 5 ML FLUSH IV FLUSH SCH ×2 (08:40→21:40)
[2016-05-03] MEDS: NICOTINE 14 MG/24 HR PATCH TD SCH (08:40)
[2016-05-03] MEDS: RESP: ALBUTEROL 2.5 MG/IPRATROPIUM 0.5 MG NEB (SCH) INH ×3 (11:26→20:15)
[2016-05-03] MEDS: ACETAMINOPHEN 325 MG TAB PO PRN (12:33)
--- NOTE | 2016-05-03 13:30 | HHI.IDPN ---
Subjective Subjective Remarks Mr. Lagos is a 55 y/o CM with PMHx of Hepatitis C, IVDA, claustrophobia, Alcoholism, Hypertension, Depression, H/o MRSA infection to the left hand. With this background patient was admitted at [facility] on 04/29/2016 as patient was found at home by the fire department sitting up on his tile floor at home surrounded by alcohol bottles. He was hypothermic and able to speak a few words. He is transferred to [facility] for further evaluation. Overnight events reviewed. No fevers No rash No diarrhea Awake alert follows commands. Antibiotics Zosyn IV Vanco IV Lines Line sites with no e/o infection. Past Medical History reviewed Allergies: Coded Allergies: *MDRO Multi-Drug Resistant Organism (Verified Adverse Reaction, Unknown, ) MRSA (urine)-04/28/16 & (blood)-04/29/16 Objective . Vital Signs Date Time Temp Pulse Resp B/P Pulse Ox O2 Delivery O2 Flow Rate FiO2 05/03/16 12:00 96.4 75 20 120/67 96 05/03/16 08:00 95.8 73 21 117/75 97 05/03/16 05:06 98.6 75 20 100/60 94 05/03/16 04:40 96 05/03/16 00:24 98.8 78 20 108/64 96 05/02/16 22:24 18 05/02/16 20:35 97.7 81 20 101/57 96 05/02/16 15:55 97.7 70 20 122/74 96 05/02/16 05/02/16 05/03/16 15:00 23:00 07:00 Intake Total 960 ml Output Total 1000 ml 600 ml Balance -40 ml -600 ml Intake Oral 960 ml Output Urine Total 1000 ml 600 ml # Bowel Movements 1 . Laboratory Tests Test 05/02/16 08:48 White Blood Count 4.5 TH/MM3 Red Blood Count 3.34 MIL/MM3 Hemoglobin 10.7 GM/DL Hematocrit 32.5 % Mean Corpuscular Volume 97.1 FL Mean Corpuscular Hemoglobin 32.1 PG Mean Corpuscular Hemoglobin 33.1 % Concent Red Cell Distribution Width 16.4 % Platelet Count 123 TH/MM3 Mean Platelet Volume 8.6 FL Neutrophils (%) (Auto) 40.0 % Lymphocytes (%) (Auto) 38.7 % Monocytes (%) (Auto) 8.5 % Eosinophils (%) (Auto) 11.1 % Basophils (%) (Auto) 1.7 % Neutrophils # (Auto) 1.8 TH/MM3 Lymphocytes # (Auto) 1.8 TH/MM3 Monocytes # (Auto) 0.4 TH/MM3 Eosinophils # (Auto) 0.5 TH/MM3 Basophils # (Auto) 0.1 TH/MM3 CBC Comment DIFF FINAL Differential Comment Laboratory Tests Test 05/02/16 08:45 Sodium Level 140 MEQ/L Potassium Level 3.2 MEQ/L Chloride Level 105 MEQ/L Carbon Dioxide Level 26.0 MEQ/L Anion Gap 9 MEQ/L Blood Urea Nitrogen 6 MG/DL Creatinine 0.72 MG/DL Estimat Glomerular Filtration 113 ML/MIN Rate Random Glucose 103 MG/DL Calcium Level 8.6 MG/DL Phosphorus Level 3.5 MG/DL Magnesium Level 1.7 MG/DL Total Bilirubin 1.2 MG/DL Aspartate Amino Transf 94 U/L (AST/SGOT) Alanine Aminotransferase 67 U/L (ALT/SGPT) Alkaline Phosphatase 68 U/L Total Protein 6.2 GM/DL Albumin 2.8 GM/DL Microbiology Date/Time Procedure Status Source Growth 05/03/16 07:09 Aerobic Blood Culture Received Blood Peripheral Pending 05/03/16 07:09 Anaerobic Blood Culture Received Blood Peripheral Pending 05/03/16 07:15 Aerobic Blood Culture Received Blood Peripheral Pending 05/03/16 07:15 Anaerobic Blood Culture Received Blood Peripheral Pending Imaging Last Impressions Head CT 04/28/16 1401 Signed Impressions: Service Date/Time: Thursday, April 28, 2016 14:33 - CONCLUSION: No acute disease. Dell Tang MD FACR Chest X-Ray 04/28/16 1401 Signed Impressions: Service Date/Time: Thursday, April 28, 2016 14:26 - CONCLUSION: No acute disease. Dell Tang MD FACR Physical Exam GENERAL: This is a well-nourished, well-developed patient, in no apparent distress. Overall poor hygiene. SKIN: No rashes. HEAD: Atraumatic. Normocephalic. Posterior scalp area with scab from prior head injury. No e/o local infection, induration or fluctuance. EYES: Pupils equal round and reactive. Extraocular motions intact. No scleral icterus. No injection or drainage. ENT: Nose without bleeding, purulent drainage or septal hematoma. Throat without erythema, tonsillar hypertrophy or exudate. Uvula midline. Airway patent. NECK: Trachea midline. No JVD or lymphadenopathy. Supple, nontender, no meningeal signs. CARDIOVASCULAR: Regular rate and rhythm without murmurs, gallops, or rubs. RESPIRATORY: Clear to auscultation. Breath sounds equal bilaterally. No wheezes , rales, or rhonchi. GASTROINTESTINAL: Abdomen soft, non-tender, nondistended. MUSCULOSKELETAL: Extremities without clubbing, cyanosis, or edema. No joint tenderness, effusion, or edema noted. No calf tenderness. Negative Homans sign bilaterally. NEUROLOGICAL: Awake and alert. Grossly non focal Psych: cooperative IV line sites with no e/o infection. Assessment & Plan Remarks Sepsis present on admission. Polymicrobial bacteremia: was septic on arrival. Multiple organisms: E.faecalis , Acinetobacter Lowafii, Coag neg staph bacteremia. MRSA bacteremia. MRSA in urine likely from translocation. H/o Hepatitis C IVDA Alcoholism Recs: Continue Zosyn IV Continue Vanco IV (target trough 15-20) Follow cultures follow clinically. Concern for IVDA related infection. Repeat blood cultures today. ECHO with no vegetations. Follow cultures to decide if persistent and workup needed further such as OPHELIA or CT C/A/P. Rosio Allen MD May 03, 2016 13:29
--- NOTE | 2016-05-03 17:08 | HHI.PR ---
Subjective Remarks Follow-up bacteremia, sepsis. Patient states that his headache is coming back. It had improved today. Denies chest pain, dyspnea. Objective Vitals Vital Signs Date Time Temp Pulse Resp B/P Pulse Ox O2 Delivery O2 Flow Rate FiO2 05/03/16 16:00 97.6 65 20 125/78 97 05/03/16 15:59 96 21 05/03/16 12:00 96.4 75 20 120/67 96 05/03/16 08:00 95.8 73 21 117/75 97 05/03/16 05:06 98.6 75 20 100/60 94 05/03/16 04:40 96 05/03/16 00:24 98.8 78 20 108/64 96 05/02/16 22:24 18 05/02/16 20:35 97.7 81 20 101/57 96 I/O 05/02/16 05/02/16 05/02/16 05/03/16 05/03/16 05/03/16 07:00 15:00 23:00 07:00 15:00 23:00 Intake Total 960 ml Output Total 500 ml 1000 ml 600 ml 875 ml Balance -500 ml -40 ml -600 ml -875 ml Intake Oral 960 ml Output Urine Total 500 ml 1000 ml 600 ml 875 ml # Bowel Movements 1 0 Result Diagram: 05/02/16 0848 05/02/16 0845 Imaging Last Impressions Brain MRI 05/02/16 0000 Signed Impressions: Service Date/Time: Monday, May 02, 2016 12:05 - CONCLUSION: No acute intracranial disease. Ritchie Fatima MD Head CT 04/28/16 1401 Signed Impressions: Service Date/Time: Thursday, April 28, 2016 14:33 - CONCLUSION: No acute disease. Dell Tang MD FACR Chest X-Ray 04/28/16 1401 Signed Impressions: Service Date/Time: Thursday, April 28, 2016 14:26 - CONCLUSION: No acute disease. Dell Tang MD FACR Objective Remarks General: No acute distress. Tremulous. Heart: Regular rate and rhythm. No murmur. Lungs: Clear to auscultation bilaterally. No wheezes, rales, or rhonchi. Breathing is nonlabored. Abdomen: Soft, nontender, nondistended. Extremities: No lower extremity edema. Psych: Alert and oriented. Urinary Catheter: No Vascular Central Line Catheter: No A/P Problem List: (1) Elevated transaminase level ICD Code: R74.0 Status: Acute (2) Lactic acidosis ICD Code: E87.2 Status: Resolved (3) Hypopotassemia ICD Code: E87.6 Status: Resolved (4) Hypernatremia ICD Code: E87.0 Status: Acute (5) Alcohol abuse ICD Code: F10.10 Status: Chronic (6) Alcohol intoxication ICD Code: F10.129 Status: Acute (7) Hypothermia ICD Code: T68.XXXA Status: Resolved (8) Sinus bradycardia ICD Code: R00.1 Status: Resolved (9) Wound abscess ICD Code: T81.4XXA Status: Acute Assessment and Plan 1. Acute delirium secondary to hypothermia, alcohol: Resolved. Continue CIWA protocol for alcohol withdrawal. 2. Occipital headache: Improved today, but now returning. Continue pain meds. 3. Sepsis, bacteremia: Appreciate infectious disease recommendations. Follow cultures. Continue antibiotics. 4. Transaminitis: Likely secondary to alcohol, hepatitis C. 5. GI prophylaxis: Protonix. 6. DVT prophylaxis: SCDs, heparin. Problem Qualifiers (1) Alcohol intoxication: Qualified Code: F10.129 - Alcohol intoxication, with unspecified complication (2) Hypothermia: Qualified Code: T68.XXXA - Hypothermia, initial encounter (3) Wound abscess: Qualified Code: T81.4XXS - Wound abscess, sequela Zaki Cameron MD May 03, 2016 17:08
[2016-05-03] MEDS: REMOVE OLD NICODERM (NICOTINE) PATCH TD SCH (21:00)
[2016-05-04] VITALS: BP 117/68; PULSE 80; RESP 18; TEMP 98.3; O2SAT 95
[2016-05-04] MEDS: LORazepam 1 MG TAB PO PRN (02:57)
[2016-05-04] MEDS: PIPERACIL-TAZO 4.5 GM PREMIX 100 ML IV SCH ×2 (02:58→08:56)
[2016-05-04] MEDS: VANCOMYCIN INJ 2,000 MG in SODIUM CHLORID 0.9% 500 ML INJ 500 ML IV SCH ×2 (03:32→15:08)
[2016-05-04 04:00] VITALS: BP 127/83; PULSE 94; RESP 18; TEMP 98.7; O2SAT 97
[2016-05-04] MEDS: CHLORHEXIDINE GLUCONATE 2 % 1 PACK (2 CLOTHS) TOP SCH (04:00)
[2016-05-04] MEDS: RESP: ALBUTEROL 2.5 MG/IPRATROPIUM 0.5 MG NEB (SCH) INH ×4 (04:38→22:10)
[2016-05-04] MEDS: HEPARIN SODIUM - SQ 10,000 UNITS/ML VIAL SQ SCH ×2 (05:42→17:28)
[2016-05-04] MEDS: ACETAMINOPHEN/HYDROcodone 325 MG/5 MG TAB PO PRN ×4 (05:43→23:11)
[2016-05-04 08:00] VITALS: BP 126/74; PULSE 82; RESP 18; TEMP 98.2; O2SAT 95
[2016-05-04] MEDS: NICOTINE 14 MG/24 HR PATCH TD SCH (08:56)
[2016-05-04] MEDS: ARTIFICIAL TEARS OPTH SOLN 15 ML BTL EACH EYE SCH ×3 (08:56→17:28)
[2016-05-04] MEDS: SODIUM CHLORIDE 0.9% FLUSH 5 ML FLUSH IV FLUSH SCH ×2 (08:56→21:17)
[2016-05-04] MEDS: PANTOPRAZOLE SOD 40 MG DELAYED RELEASE TAB PO SCH (08:56)
[2016-05-04] MEDS: DOCUSATE SODIUM 100 MG CAP PO SCH ×2 (08:56→21:16)
[2016-05-04] MEDS: SODIUM HYPOCHLORITE 0.25% 500 ML BTL TOPICAL SCH ×2 (08:57→21:16)
--- NOTE | 2016-05-04 09:36 | HHI.PR ---
Subjective Remarks Follow up bacteremia, sepsis. Headache is improving. Patient states that he has been having memory difficulties, but they are improving as well. No other complaints at this time. Objective Vitals Vital Signs Date Time Temp Pulse Resp B/P Pulse Ox O2 Delivery O2 Flow Rate FiO2 05/04/16 08:00 98.2 82 18 126/74 95 05/04/16 04:00 98.7 94 18 127/83 97 05/04/16 00:00 98.3 80 18 117/68 95 05/03/16 22:13 96 21 05/03/16 20:00 97.7 83 20 117/82 97 05/03/16 16:00 97.6 65 20 125/78 97 05/03/16 15:59 96 21 05/03/16 12:00 96.4 75 20 120/67 96 I/O 05/03/16 05/03/16 05/03/16 05/04/16 05/04/16 05/04/16 07:00 15:00 23:00 07:00 15:00 23:00 Output Total 600 ml 875 ml 825 ml 1250 ml Balance -600 ml -875 ml -825 ml -1250 ml Output Urine Total 600 ml 875 ml 825 ml 1250 ml # Bowel Movements 0 Result Diagram: 05/02/16 0848 05/04/16 0536 Imaging Last Impressions Brain MRI 05/02/16 0000 Signed Impressions: Service Date/Time: Monday, May 02, 2016 12:05 - CONCLUSION: No acute intracranial disease. Ritchie Fatima MD Head CT 04/28/16 1401 Signed Impressions: Service Date/Time: Thursday, April 28, 2016 14:33 - CONCLUSION: No acute disease. Dell Tang MD FACR Chest X-Ray 04/28/16 1401 Signed Impressions: Service Date/Time: Thursday, April 28, 2016 14:26 - CONCLUSION: No acute disease. Dell Tang MD FACR Objective Remarks General: No acute distress. Mildly tremulous. Heart: Regular rate and rhythm. No murmur. Lungs: Clear to auscultation bilaterally. No wheezes, rales, or rhonchi. Breathing is nonlabored. Abdomen: Soft, nontender, nondistended. Extremities: No lower extremity edema. Psych: Alert and oriented. Urinary Catheter: No Vascular Central Line Catheter: No A/P Problem List: (1) Elevated transaminase level ICD Code: R74.0 Status: Acute (2) Lactic acidosis ICD Code: E87.2 Status: Resolved (3) Hypopotassemia ICD Code: E87.6 Status: Resolved (4) Hypernatremia ICD Code: E87.0 Status: Acute (5) Alcohol abuse ICD Code: F10.10 Status: Chronic (6) Alcohol intoxication ICD Code: F10.129 Status: Acute (7) Hypothermia ICD Code: T68.XXXA Status: Resolved (8) Sinus bradycardia ICD Code: R00.1 Status: Resolved (9) Wound abscess ICD Code: T81.4XXA Status: Acute Assessment and Plan 1. Acute delirium secondary to hypothermia, alcohol: Resolved. Continue CIWA protocol for alcohol withdrawal. 2. Occipital headache: Continue pain meds. Brain MRI is negative. 3. Sepsis, bacteremia: Blood cultures show polymicrobial infection. Appreciate infectious disease recommendations. Follow repeat cultures. Continue antibiotics. 4. Transaminitis: Likely secondary to alcohol, hepatitis C. 5. GI prophylaxis: Protonix. 6. DVT prophylaxis: SCDs, heparin. Problem Qualifiers (1) Alcohol intoxication: Qualified Code: F10.129 - Alcohol intoxication, with unspecified complication (2) Hypothermia: Qualified Code: T68.XXXA - Hypothermia, initial encounter (3) Wound abscess: Qualified Code: T81.4XXS - Wound abscess, sequela Zaki Cameron MD May 04, 2016 09:35
[2016-05-04] MEDS: CEFEPIME INJ 2,000 MG in SODIUM CHLORIDE 0.9% INJ 100 ML IV SCH ×2 (11:45→21:17)
[2016-05-04 12:00] VITALS: BP 97/52; PULSE 82; RESP 18; TEMP 97.8; O2SAT 95
[2016-05-04] MEDS: MORPHINE SULFATE 4 MG/ML INJ IV PRN ×2 (12:40→19:53)
[2016-05-04 16:00] VITALS: BP 113/69; PULSE 82; RESP 18; TEMP 97.8; O2SAT 94
[2016-05-04 20:00] VITALS: BP 108/64; PULSE 71; RESP 18; TEMP 97; O2SAT 97
[2016-05-04] MEDS: REMOVE OLD NICODERM (NICOTINE) PATCH TD SCH (21:00)
[2016-05-05] VITALS: BP 100/72; PULSE 61; RESP 18; TEMP 97.1; O2SAT 98
[2016-05-05] MEDS: MORPHINE SULFATE 4 MG/ML INJ IV PRN ×4 (02:30→21:29)
[2016-05-05] MEDS: VANCOMYCIN INJ 2,000 MG in SODIUM CHLORID 0.9% 500 ML INJ 500 ML IV SCH ×2 (02:31→15:45)
[2016-05-05 04:00] VITALS: BP 123/75; PULSE 56; RESP 20; TEMP 98; O2SAT 97
[2016-05-05] MEDS: CHLORHEXIDINE GLUCONATE 2 % 1 PACK (2 CLOTHS) TOP SCH (04:00)
[2016-05-05] MEDS: RESP: ALBUTEROL 2.5 MG/IPRATROPIUM 0.5 MG NEB (SCH) INH ×4 (04:36→20:36)
[2016-05-05] MEDS: CEFEPIME INJ 2,000 MG in SODIUM CHLORIDE 0.9% INJ 100 ML IV SCH ×3 (04:52→21:27)
[2016-05-05] MEDS: ACETAMINOPHEN/HYDROcodone 325 MG/5 MG TAB PO PRN ×4 (04:52→17:32)
[2016-05-05] MEDS: HEPARIN SODIUM - SQ 10,000 UNITS/ML VIAL SQ SCH ×2 (05:36→17:28)
[2016-05-05 08:34] VITALS: BP 127/74; PULSE 84; RESP 18; TEMP 95.8; O2SAT 95; O2SAT 98
[2016-05-05 09:45] LABS: BASOPHIL # 0.1 TH/MM3 (0-0.2); BASOPHIL % 2.5 % (0.0-2.0); EOSINOPHIL # 0.3 TH/MM3 (0-0.4); EOSINOPHIL % 5.9 % (0.0-4.0); HEMATOCRIT 34.6 % (39.0-51.0); HEMO FLAGS DIFF FINAL; LYMPH % 37.3 % (9.0-44.0); LYMPHOCYTE # 1.8 TH/MM3 (1.0-4.8); MEAN CELL VOLUME 97.9 FL (80.0-100.0); MEAN CORPUSCULAR HEMOGLOBIN 32.6 PG (27.0-34.0); MEAN CORPUSCULAR HGB CONC 33.3 % (32.0-36.0); NEUT % 41.3 % (16.0-70.0); PLATELET COUNT 149 TH/MM3 (150-450); RED BLOOD COUNT 3.53 MIL/MM3 (4.50-5.90); RED CELL DISTRIBUTION WIDTH 16.7 % (11.6-17.2); WHITE BLOOD COUNT 4.9 TH/MM3 (4.0-11.0)
[2016-05-05] MEDS: SODIUM HYPOCHLORITE 0.25% 500 ML BTL TOPICAL SCH ×2 (10:01→21:29)
[2016-05-05] MEDS: NICOTINE 14 MG/24 HR PATCH TD SCH (10:01)
[2016-05-05] MEDS: DOCUSATE SODIUM 100 MG CAP PO SCH ×2 (10:01→21:28)
[2016-05-05] MEDS: ARTIFICIAL TEARS OPTH SOLN 15 ML BTL EACH EYE SCH ×3 (10:01→17:31)
[2016-05-05] MEDS: PANTOPRAZOLE SOD 40 MG DELAYED RELEASE TAB PO SCH (10:01)
[2016-05-05] MEDS: SODIUM CHLORIDE 0.9% FLUSH 5 ML FLUSH IV FLUSH SCH ×2 (10:01→21:28)
[2016-05-05 10:04] LABS: BICARBONATE 27.9 MEQ/L (21.0-32.0); POTASSIUM 3.5 MEQ/L (3.5-5.1)
[2016-05-05] MEDS ORDERED: DIATRIZOATE MEGLUM/DIATRIZOATE SOD 9 ML CUP PO ONE (10:15)
--- NOTE | 2016-05-05 11:32 | HHI.PR ---
Subjective Remarks Follow up bacteremia, sepsis. No complaints at this time. Denies chest pain, dyspnea, cough, nausea, vomiting, diarrhea, constipation. Objective Vitals Vital Signs Date Time Temp Pulse Resp B/P Pulse Ox O2 Delivery O2 Flow Rate FiO2 05/05/16 08:34 95.8 84 18 127/74 95 05/05/16 08:34 98 21 05/05/16 04:00 98.0 56 20 123/75 97 05/05/16 00:00 97.1 61 18 100/72 98 05/04/16 20:00 97.0 71 18 108/64 97 05/04/16 16:00 97.8 82 18 113/69 94 05/04/16 12:00 97.8 82 18 97/52 95 I/O 05/04/16 05/04/16 05/04/16 05/05/16 05/05/16 05/05/16 07:00 15:00 23:00 07:00 15:00 23:00 Intake Total 360 ml Output Total 1250 ml 475 ml 300 ml Balance -1250 ml -115 ml -300 ml Intake Oral 360 ml Output Urine Total 1250 ml 475 ml 300 ml # Bowel Movements 1 Result Diagram: 05/05/16 0905 05/05/16 0905 Imaging Last Impressions Brain MRI 05/02/16 0000 Signed Impressions: Service Date/Time: Monday, May 02, 2016 12:05 - CONCLUSION: No acute intracranial disease. Ritchie Fatima MD Head CT 04/28/16 1401 Signed Impressions: Service Date/Time: Thursday, April 28, 2016 14:33 - CONCLUSION: No acute disease. Dell Tang MD FACR Chest X-Ray 04/28/161 Signed Impressions: Service Date/Time: Thursday, April 28, 2016 14:26 - CONCLUSION: No acute disease. Dell Tang MD FACR Objective Remarks General: No acute distress. Mildly tremulous. Heart: Regular rate and rhythm. No murmur. Lungs: Clear to auscultation bilaterally. No wheezes, rales, or rhonchi. Breathing is nonlabored. Abdomen: Soft, nontender, nondistended. Extremities: No lower extremity edema. Psych: Alert and oriented. Urinary Catheter: No Vascular Central Line Catheter: No A/P Problem List: (1) Elevated transaminase level ICD Code: R74.0 Status: Acute (2) Lactic acidosis ICD Code: E87.2 Status: Resolved (3) Hypopotassemia ICD Code: E87.6 Status: Resolved (4) Hypernatremia ICD Code: E87.0 Status: Acute (5) Alcohol abuse ICD Code: F10.10 Status: Chronic (6) Alcohol intoxication ICD Code: F10.129 Status: Acute (7) Hypothermia ICD Code: T68.XXXA Status: Resolved (8) Sinus bradycardia ICD Code: R00.1 Status: Resolved (9) Wound abscess ICD Code: T81.4XXA Status: Acute Assessment and Plan 1. Acute delirium secondary to hypothermia, alcohol: Resolved. Continue CIPA protocol for alcohol withdrawal. Has not required lorazepam in the last 24 hours. 2. Occipital headache: Continue pain meds. Brain MRI is negative. 3. Sepsis, bacteremia: Blood cultures show polymicrobial infection. Appreciate infectious disease recommendations. Repeat cultures are negative so far. Continue antibiotics. CT thorax and CT abdomen/pelvis ordered by infectious disease. 4. Transaminitis: Likely secondary to alcohol, hepatitis C. 5. GI prophylaxis: Protonix. 6. DVT prophylaxis: SCDs, heparin. Problem Qualifiers (1) Alcohol intoxication: Qualified Code: F10.129 - Alcohol intoxication, with unspecified complication (2) Hypothermia: Qualified Code: T68.XXXA - Hypothermia, initial encounter (3) Wound abscess: Qualified Code: T81.4XXS - Wound abscess, sequela Zaki Cameron MD May 05, 2016 11:32
[2016-05-05 12:35] VITALS: BP 126/74; PULSE 84; RESP 18; TEMP 96; O2SAT 96
[2016-05-05 16:47] VITALS: BP 124/70; PULSE 81; RESP 18; TEMP 96.2; O2SAT 96
[2016-05-05] MEDS ORDERED: IOHEXOL 350 MG/ML 10 ML VIAL (for RAD DIAG) IV ONE (17:29)
--- NOTE | 2016-05-05 18:29 | RADRPT ---
EXAM DATE/TIME: 05/05/2016 17:02 [facility] COMPARISON: No previous studies available for comparison. INDICATIONS : Short of breath, septic emboli. IV CONTRAST: 94 cc Omnipaque 350 (iohexol) IV RADIATION DOSE: 16.82 CTDIvol (mGy) MEDICAL HISTORY : Hypertension. SURGICAL HISTORY : None. ENCOUNTER: Initial ACUITY: 1 day PAIN SCALE: 2/10 LOCATION: chest TECHNIQUE: Volumetric scanning of the chest was performed. Using automated exposure control and adjustment of t he mA and/or kV according to patient size, radiation dose was kept as low as reasonably achievable to obtain optimal diagnostic quality images. FINDINGS: There is minimal dependent atelectasis in the lungs. No focal or wedge-shaped consolidations to sugge st septic emboli. There is no pleural or pericardial effusion. No hilar, mediastinal axillary adenopathy. No acute bony abnormalities. See abdominal CT for findings below the diaphragm. CONCLUSION: 1. No acute findings on thoracic CT. No evidence for septic embolic disease to the lungs. Minimal dep endent atelectasis in the lungs. No effusion. Juan Hendrix MD on May 05, 2016 at 18:22 Board Certified Radiologist. This report was verified electronically.
--- NOTE | 2016-05-05 18:34 | RADRPT ---
EXAM DATE/TIME: 05/05/2016 17:02 [facility] COMPARISON: No previous studies available for comparison. INDICATIONS : Abdomen pain, septic emboli. IV CONTRAST: 94 cc Omnipaque 350 (iohexol) IV ORAL CONTRAST: No oral contrast ingested. RADIATION DOSE: 16.82 CTDIvol (mGy) ; Combined studies - Thorax/Abdomen/Pelvis MEDICAL HISTORY : Hypertension. SURGICAL HISTORY : None. ENCOUNTER: Initial ACUITY: 1 day PAIN SCALE: 3/10 LOCATION: aabdomen TECHNIQUE: Volumetric scanning of the abdomen and pelvis was performed. Using automated exposure control and ad justment of the mA and/or kV according to patient size, radiation dose was kept as low as reasonably achievable to obtain optimal diagnostic quality images. FINDINGS: Liver has a slightly lobulated appearance most characteristic of cirrhosis. Spleen, adrenals, left ki dney and pancreas unremarkable. 2.8 cm cyst upper pole right kidney. Varices present around the dista l esophagus and splenic hilum. No bowel obstruction. No free air or free fluid. No acute bony abnormality. CONCLUSION: 1. Liver cirrhosis with varices around the distal esophagus and splenic hilum and retroperitoneum on the left side. 2. No ascites. No bowel obstruction or free air. No adenopathy. Juan Hendrix MD on May 05, 2016 at 18:28 Board Certified Radiologist. This report was verified electronically.
[2016-05-05 20:00] VITALS: BP 119/83; PULSE 86; RESP 20; TEMP 97.8; O2SAT 95
[2016-05-05] MEDS: REMOVE OLD NICODERM (NICOTINE) PATCH TD SCH (21:00)
[2016-05-06] VITALS (8 sets, daily range): BP systolic 110–125; BP diastolic 59–77; PULSE 64–80; RESP 17–20; TEMP 96.1–98.3; O2SAT 94–98
[2016-05-06] MEDS: ACETAMINOPHEN/HYDROcodone 325 MG/5 MG TAB PO PRN ×3 (00:27→11:55)
[2016-05-06] MEDS: VANCOMYCIN INJ 2,000 MG in SODIUM CHLORID 0.9% 500 ML INJ 500 ML IV SCH ×2 (02:12→13:43)
[2016-05-06] MEDS: MORPHINE SULFATE 4 MG/ML INJ IV PRN ×5 (02:13→21:17)
[2016-05-06] MEDS: CHLORHEXIDINE GLUCONATE 2 % 1 PACK (2 CLOTHS) TOP SCH (03:15)
[2016-05-06] MEDS: CEFEPIME INJ 2,000 MG in SODIUM CHLORIDE 0.9% INJ 100 ML IV SCH ×3 (04:18→21:17)
[2016-05-06] MEDS: RESP: ALBUTEROL 2.5 MG/IPRATROPIUM 0.5 MG NEB (SCH) INH ×2 (04:47→08:53)
[2016-05-06] MEDS: HEPARIN SODIUM - SQ 10,000 UNITS/ML VIAL SQ SCH ×2 (05:00→16:30)
[2016-05-06] MEDS: NICOTINE 14 MG/24 HR PATCH TD SCH (08:38)
[2016-05-06] MEDS: PANTOPRAZOLE SOD 40 MG DELAYED RELEASE TAB PO SCH (08:38)
[2016-05-06] MEDS: DOCUSATE SODIUM 100 MG CAP PO SCH ×2 (08:38→21:17)
[2016-05-06] MEDS: SODIUM CHLORIDE 0.9% FLUSH 5 ML FLUSH IV FLUSH SCH ×2 (08:38→21:17)
[2016-05-06] MEDS: ARTIFICIAL TEARS OPTH SOLN 15 ML BTL EACH EYE SCH ×3 (08:39→16:30)
[2016-05-06] MEDS: SODIUM HYPOCHLORITE 0.25% 500 ML BTL TOPICAL SCH ×2 (08:40→21:00)
--- NOTE | 2016-05-06 09:42 | HHI.PR ---
Subjective Remarks Follow up bacteremia. Patient reports sudden onset of a posterior headache this morning, which has resolved. Denies chest pain, dyspnea. Denies nausea, vomiting , diarrhea, constipation. Objective Vitals Vital Signs Date Time Temp Pulse Resp B/P Pulse Ox O2 Delivery O2 Flow Rate FiO2 05/06/16 08:55 95 05/06/16 08:00 97.9 79 17 118/71 94 05/06/16 04:48 94 21 05/06/16 04:00 97.7 64 20 125/60 98 05/06/16 00:00 98.3 76 20 110/59 95 05/05/16 20:00 97.8 86 20 119/83 95 05/05/16 16:47 96.2 81 18 124/70 96 05/05/16 12:35 96.0 84 18 126/74 96 I/O 05/05/16 05/05/16 05/05/16 05/06/16 05/06/16 05/06/16 07:00 15:00 23:00 07:00 15:00 23:00 Intake Total 800 ml 480 ml 120 ml 710 ml Output Total 300 ml 500 ml Balance -300 ml 800 ml 480 ml -380 ml 710 ml Intake Oral 800 ml 480 ml 120 ml IV Total 710 ml Output Urine Total 300 ml 500 ml # Voids 3 1 # Bowel Movements 0 0 Result Diagram: 05/05/16 0905 05/06/16 0702 Imaging Last Impressions Chest CT 05/05/16 0000 Signed Impressions: Service Date/Time: Thursday, May 05, 2016 17:02 - CONCLUSION: 1. No acute findings on thoracic CT. No evidence for septic embolic disease to the lungs. Minimal dependent atelectasis in the lungs. No effusion. Juan Hendrix MD Abdomen/Pelvis CT 05/05/16 0000 Signed Impressions: Service Date/Time: Thursday, May 05, 2016 17:02 - CONCLUSION: 1. Liver cirrhosis with varices around the distal esophagus and splenic hilum and retroperitoneum on the left side. 2. No ascites. No bowel obstruction or free air. No adenopathy. Juan Hendrix MD Brain MRI 05/02/16 0000 Signed Impressions: Service Date/Time: Monday, May 02, 2016 12:05 - CONCLUSION: No acute intracranial disease. Ritchie Fatima MD Head CT 04/28/161400 Signed Impressions: Service Date/Time: Thursday, April 28, 2016 14:33 - CONCLUSION: No acute disease. Dell Tang MD FACR Chest X-Ray 04/28/16 140 Signed Impressions: Service Date/Time: Thursday, April 28, 2016 14:26 - CONCLUSION: No acute disease. Dell Tang MD FACR Objective Remarks General: No acute distress. Heart: Regular rate and rhythm. No murmur. Lungs: Clear to auscultation bilaterally. No wheezes, rales, or rhonchi. Breathing is nonlabored. Abdomen: Soft, nontender, nondistended. Extremities: No lower extremity edema. Psych: Alert and oriented. Procedures None Urinary Catheter: No Vascular Central Line Catheter: No A/P Problem List: (1) Elevated transaminase level ICD Code: R74.0 Status: Acute (2) Lactic acidosis ICD Code: E87.2 Status: Resolved (3) Hypopotassemia ICD Code: E87.6 Status: Resolved (4) Hypernatremia ICD Code: E87.0 Status: Acute (5) Alcohol abuse ICD Code: F10.10 Status: Chronic (6) Alcohol intoxication ICD Code: F10.129 Status: Acute (7) Hypothermia ICD Code: T68.XXXA Status: Resolved (8) Sinus bradycardia ICD Code: R00.1 Status: Resolved (9) Wound abscess ICD Code: T81.4XXA Status: Acute Assessment and Plan 1. Acute delirium secondary to hypothermia, alcohol: Resolved. Continue [facility] protocol for alcohol withdrawal. No longer requiring lorazepam. 2. Occipital headache: Continue pain meds. Brain MRI is negative. 3. Sepsis, bacteremia: Blood cultures show polymicrobial infection. Appreciate infectious disease recommendations. Repeat cultures are negative so far. Continue antibiotics. CT thorax and CT abdomen/pelvis show no apparent abscess or septic emboli. 4. Transaminitis: Likely secondary to alcohol, hepatitis C. Improving. 5. GI prophylaxis: Protonix. 6. DVT prophylaxis: SCDs, heparin. Problem Qualifiers (1) Alcohol intoxication: Qualified Code: F10.129 - Alcohol intoxication, with unspecified complication (2) Hypothermia: Qualified Code: T68.XXXA - Hypothermia, initial encounter (3) Wound abscess: Qualified Code: T81.4XXS - Wound abscess, sequela Zaki Cameron MD May 06, 2016 09:41
--- NOTE | 2016-05-06 14:46 | HHI.IDPN ---
Subjective Subjective Remarks Mr. Lagos is a 55 y/o CM with PMHx of Hepatitis C, IVDA, claustrophobia, Alcoholism, Hypertension, Depression, H/o MRSA infection to the left hand. With this background patient was admitted at [facility] on 04/29/2016 as patient was found at home by the fire department sitting up on his tile floor at home surrounded by alcohol bottles. He was hypothermic and able to speak a few words. He is transferred to [facility] for further evaluation. Overnight events reviewed. No fevers No rash No diarrhea Antibiotics Zosyn IV Vanco IV Lines Line sites with no e/o infection. Past Medical History reviewed Allergies: Coded Allergies: *MDRO Multi-Drug Resistant Organism (Verified Adverse Reaction, Unknown, ) MRSA (urine)-04/28/16 & (blood)-04/29/16 Objective . Vital Signs Date Time Temp Pulse Resp B/P Pulse Ox O2 Delivery O2 Flow Rate FiO2 05/06/16 12:00 97.1 80 18 120/77 96 05/06/16 08:55 95 05/06/16 08:00 97.9 79 17 118/71 94 05/06/16 04:48 94 21 05/06/16 04:00 97.7 64 20 125/60 98 05/06/16 00:00 98.3 76 20 110/59 95 05/05/16 20:00 97.8 86 20 119/83 95 05/05/16 16:47 96.2 81 18 124/70 96 05/05/16 05/05/16 05/06/16 15:00 23:00 07:00 Intake Total 800 ml 480 ml 120 ml Output Total 500 ml Balance 800 ml 480 ml -380 ml Intake Oral 800 ml 480 ml 120 ml Output Urine Total 500 ml # Voids 3 1 # Bowel Movements 0 0 . Laboratory Tests Test 05/05/16 09:05 White Blood Count 4.9 TH/MM3 Red Blood Count 3.53 MIL/MM3 Hemoglobin 11.5 GM/DL Hematocrit 34.6 % Mean Corpuscular Volume 97.9 FL Mean Corpuscular Hemoglobin 32.6 PG Mean Corpuscular Hemoglobin 33.3 % Concent Red Cell Distribution Width 16.7 % Platelet Count 149 TH/MM3 Mean Platelet Volume 8.1 FL Neutrophils (%) (Auto) 41.3 % Lymphocytes (%) (Auto) 37.3 % Monocytes (%) (Auto) 13.0 % Eosinophils (%) (Auto) 5.9 % Basophils (%) (Auto) 2.5 % Neutrophils # (Auto) 2.0 TH/MM3 Lymphocytes # (Auto) 1.8 TH/MM3 Monocytes # (Auto) 0.6 TH/MM3 Eosinophils # (Auto) 0.3 TH/MM3 Basophils # (Auto) 0.1 TH/MM3 CBC Comment DIFF FINAL Differential Comment Laboratory Tests Test 05/05/16 05/06/16 09:05 07:02 Sodium Level 139 MEQ/L Potassium Level 3.5 MEQ/L Chloride Level 104 MEQ/L Carbon Dioxide Level 27.9 MEQ/L Anion Gap 7 MEQ/L Blood Urea Nitrogen 10 MG/DL Creatinine 0.80 MG/DL 0.64 MG/DL Estimat Glomerular Filtration 100 ML/MIN 129 ML/MIN Rate Random Glucose 98 MG/DL Calcium Level 8.7 MG/DL Imaging Last Impressions Head CT 04/28/16 1401 Signed Impressions: Service Date/Time: Thursday, April 28, 2016 14:33 - CONCLUSION: No acute disease. Dell Tang MD FACR Chest X-Ray 04/28/16 1401 Signed Impressions: Service Date/Time: Thursday, April 28, 2016 14:26 - CONCLUSION: No acute disease. Dell Tang MD FACR Physical Exam GENERAL: This is a well-nourished, well-developed patient, in no apparent distress. Overall poor hygiene. SKIN: No rashes. HEAD: Atraumatic. Normocephalic. Posterior scalp area with scab from prior head injury. No e/o local infection, induration or fluctuance. EYES: Pupils equal round and reactive. Extraocular motions intact. No scleral icterus. No injection or drainage. ENT: Nose without bleeding, purulent drainage or septal hematoma. Throat without erythema, tonsillar hypertrophy or exudate. Uvula midline. Airway patent. NECK: Trachea midline. No JVD or lymphadenopathy. Supple, nontender, no meningeal signs. CARDIOVASCULAR: Regular rate and rhythm without murmurs, gallops, or rubs. RESPIRATORY: Clear to auscultation. Breath sounds equal bilaterally. No wheezes , rales, or rhonchi. GASTROINTESTINAL: Abdomen soft, non-tender, nondistended. MUSCULOSKELETAL: Extremities without clubbing, cyanosis, or edema. No joint tenderness, effusion, or edema noted. No calf tenderness. Negative Homans sign bilaterally. NEUROLOGICAL: Awake and alert. Grossly non focal Psych: cooperative IV line sites with no e/o infection. Assessment & Plan Remarks Sepsis present on admission. Polymicrobial bacteremia: was septic on arrival. Multiple organisms: E.faecalis , Acinetobacter Lowafii, Coag neg staph bacteremia. MRSA bacteremia. MRSA in urine likely from translocation. Hepatitis C IVDA Alcoholism Liver Cirrhosis. Recs: Continue Zosyn IV (stop date: 05/13/2016) Continue Vanco IV per pharmacy (target trough 15-20) (stop date: 05/13/2016) ECHO with no vegetations. No need for OPHELIA. d.w no need for PO transfer as only few more days left for completion. Continue Weaning off pain meds. Rosio Allen MD May 06, 2016 14:46
[2016-05-06] MEDS: REMOVE OLD NICODERM (NICOTINE) PATCH TD SCH (21:00)
[2016-05-07] VITALS: BP 122/79; PULSE 75; RESP 20; TEMP 97.2; O2SAT 95
[2016-05-07] MEDS: MORPHINE SULFATE 4 MG/ML INJ IV PRN ×7 (00:25→22:53)
[2016-05-07] MEDS: CHLORHEXIDINE GLUCONATE 2 % 1 PACK (2 CLOTHS) TOP SCH (03:08)
[2016-05-07] MEDS: VANCOMYCIN INJ 2,000 MG in SODIUM CHLORID 0.9% 500 ML INJ 500 ML IV SCH ×2 (03:09→15:15)
[2016-05-07 04:00] VITALS: BP 122/73; PULSE 85; RESP 20; TEMP 98; O2SAT 95
[2016-05-07] MEDS: HEPARIN SODIUM - SQ 10,000 UNITS/ML VIAL SQ SCH ×2 (05:11→17:57)
[2016-05-07] MEDS: CEFEPIME INJ 2,000 MG in SODIUM CHLORIDE 0.9% INJ 100 ML IV SCH ×3 (05:11→20:27)
[2016-05-07 08:00] VITALS: BP 139/75; PULSE 93; RESP 18; TEMP 97.2; O2SAT 92
[2016-05-07] MEDS: NICOTINE 14 MG/24 HR PATCH TD SCH (08:57)
[2016-05-07] MEDS: DOCUSATE SODIUM 100 MG CAP PO SCH ×3 (08:57→22:53)
[2016-05-07] MEDS: PANTOPRAZOLE SOD 40 MG DELAYED RELEASE TAB PO SCH (08:57)
[2016-05-07] MEDS: ARTIFICIAL TEARS OPTH SOLN 15 ML BTL EACH EYE SCH ×3 (08:58→17:50)
[2016-05-07] MEDS: SODIUM HYPOCHLORITE 0.25% 500 ML BTL TOPICAL SCH ×2 (08:58→20:31)
[2016-05-07] MEDS: SODIUM CHLORIDE 0.9% FLUSH 5 ML FLUSH IV FLUSH SCH ×2 (08:59→20:27)
--- NOTE | 2016-05-07 11:18 | HHI.PR ---
Subjective Remarks Follow up bacteremia. The patient reports some pain in the right forearm since his IV was placed there. No chest pain or dyspnea. Objective Vitals Vital Signs Date Time Temp Pulse Resp B/P Pulse Ox O2 Delivery O2 Flow Rate FiO2 05/07/16 08:00 97.2 93 18 139/75 92 05/07/16 04:00 98.0 85 20 122/73 95 05/07/16 00:00 97.2 75 20 122/79 95 05/06/16 21:24 Room Air 05/06/16 20:00 97.9 72 20 118/72 97 05/06/16 16:00 96.1 75 17 112/64 96 05/06/16 12:00 97.1 80 18 120/77 96 I/O 05/06/16 05/06/16 05/06/16 05/07/16 05/07/16 05/07/16 07:00 15:00 23:00 07:00 15:00 23:00 Intake Total 120 ml 1910 ml 240 ml 220 ml Output Total 500 ml Balance -380 ml 1910 ml 240 ml 220 ml Intake Oral 120 ml 1200 ml 240 ml 220 ml IV Total 710 ml Output Urine Total 500 ml # Voids 4 1 3 # Bowel Movements 0 1 0 0 Result Diagram: 05/05/16 0905 05/06/16 0702 Imaging Last Impressions Chest CT 05/05/16 0000 Signed Impressions: Service Date/Time: Thursday, May 05, 2016 17:02 - CONCLUSION: 1. No acute findings on thoracic CT. No evidence for septic embolic disease to the lungs. Minimal dependent atelectasis in the lungs. No effusion. Juan Hendrix MD Abdomen/Pelvis CT 05/05/16 0000 Signed Impressions: Service Date/Time: Thursday, May 05, 2016 17:02 - CONCLUSION: 1. Liver cirrhosis with varices around the distal esophagus and splenic hilum and retroperitoneum on the left side. 2. No ascites. No bowel obstruction or free air. No adenopathy. Juan Hendrix MD Brain MRI 05/02/16 0000 Signed Impressions: Service Date/Time: Monday, May 02, 2016 12:05 - CONCLUSION: No acute intracranial disease. Ritchie Fatima MD Head CT 04/28/16 1401 Signed Impressions: Service Date/Time: Thursday, April 28, 2016 14:33 - CONCLUSION: No acute disease. Dell Tang MD FACR Chest X-Ray 04/28/16 1401 Signed Impressions: Service Date/Time: Thursday, April 28, 2016 14:26 - CONCLUSION: No acute disease. Dell Tang MD FACR Objective Remarks General: No acute distress. Heart: Regular rate and rhythm. No murmur. Lungs: Clear to auscultation bilaterally. No wheezes, rales, or rhonchi. Breathing is nonlabored. Abdomen: Soft, nontender, nondistended. Extremities: No lower extremity edema. Psych: Alert and oriented. Procedures None Urinary Catheter: No Vascular Central Line Catheter: No A/P Problem List: (1) Elevated transaminase level ICD Code: R74.0 Status: Acute (2) Lactic acidosis ICD Code: E87.2 Status: Resolved (3) Hypopotassemia ICD Code: E87.6 Status: Resolved (4) Hypernatremia ICD Code: E87.0 Status: Acute (5) Alcohol abuse ICD Code: F10.10 Status: Chronic (6) Alcohol intoxication ICD Code: F10.129 Status: Acute (7) Hypothermia ICD Code: T68.XXXA Status: Resolved (8) Sinus bradycardia ICD Code: R00.1 Status: Resolved (9) Wound abscess ICD Code: T81.4XXA Status: Acute Assessment and Plan Reviewed/updated 05/07/16. Repeat blood cultures from 05/03/16 are negative so far. Continue IV antibiotics per ID. 1. Acute delirium secondary to hypothermia, alcohol: Resolved. Continue [facility] protocol for alcohol withdrawal. No longer requiring lorazepam. 2. Occipital headache: Continue pain meds. Brain MRI is negative. 3. Sepsis, bacteremia: Blood cultures show polymicrobial infection. Appreciate infectious disease recommendations. Repeat cultures are negative so far. Continue antibiotics. CT thorax and CT abdomen/pelvis show no apparent abscess or septic emboli. 4. Transaminitis: Likely secondary to alcohol, hepatitis C. Improving. 5. GI prophylaxis: Protonix. 6. DVT prophylaxis: SCDs, heparin. Discharge Planning May consider transfer to [place] to complete IV antibiotics if no placement can be arranged. Problem Qualifiers (1) Alcohol intoxication: Qualified Code: F10.129 - Alcohol intoxication, with unspecified complication (2) Hypothermia: Qualified Code: T68.XXXA - Hypothermia, initial encounter (3) Wound abscess: Qualified Code: T81.4XXS - Wound abscess, sequela Zaki Cameron MD May 07, 2016 11:18
[2016-05-07 12:00] VITALS: BP 106/62; PULSE 85; RESP 18; TEMP 98; O2SAT 95
[2016-05-07 16:00] VITALS: BP 115/75; PULSE 82; RESP 18; TEMP 98; O2SAT 96
[2016-05-07 20:00] VITALS: BP 111/65; PULSE 76; RESP 18; TEMP 97.6; O2SAT 96
[2016-05-07] MEDS: REMOVE OLD NICODERM (NICOTINE) PATCH TD SCH (20:30)
[2016-05-07] MEDS: ACETAMINOPHEN/HYDROcodone 325 MG/10 MG TAB PO PRN (20:38)
[2016-05-08] MEDS: ACETAMINOPHEN/HYDROcodone 325 MG/10 MG TAB PO PRN ×4 (00:50→17:15)
[2016-05-08] MEDS: MORPHINE SULFATE 4 MG/ML INJ IV PRN (03:06)
[2016-05-08] MEDS: VANCOMYCIN INJ 2,000 MG in SODIUM CHLORID 0.9% 500 ML INJ 500 ML IV SCH ×2 (03:07→14:56)
[2016-05-08 04:00] VITALS: BP 110/67; PULSE 65; RESP 18; TEMP 97.7; O2SAT 96
[2016-05-08] MEDS: CHLORHEXIDINE GLUCONATE 2 % 1 PACK (2 CLOTHS) TOP SCH (04:00)
[2016-05-08] MEDS: CEFEPIME INJ 2,000 MG in SODIUM CHLORIDE 0.9% INJ 100 ML IV SCH ×3 (05:51→21:21)
[2016-05-08] MEDS: HEPARIN SODIUM - SQ 10,000 UNITS/ML VIAL SQ SCH ×2 (05:52→17:15)
[2016-05-08 07:50] VITALS: BP 124/74; PULSE 83; RESP 18; TEMP 97.4; O2SAT 96
[2016-05-08] MEDS: SODIUM CHLORIDE 0.9% FLUSH 5 ML FLUSH IV FLUSH SCH ×2 (09:00→21:21)
[2016-05-08] MEDS: ARTIFICIAL TEARS OPTH SOLN 15 ML BTL EACH EYE SCH ×3 (09:00→17:15)
[2016-05-08] MEDS: SODIUM HYPOCHLORITE 0.25% 500 ML BTL TOPICAL SCH ×2 (09:00→21:20)
[2016-05-08] MEDS: PANTOPRAZOLE SOD 40 MG DELAYED RELEASE TAB PO SCH (10:12)
[2016-05-08] MEDS: DOCUSATE SODIUM 100 MG CAP PO SCH ×2 (10:12→21:20)
[2016-05-08] MEDS: NICOTINE 14 MG/24 HR PATCH TD SCH (10:12)
[2016-05-08 11:30] VITALS: BP 100/52; PULSE 81; RESP 19; TEMP 97.1; O2SAT 96
--- NOTE | 2016-05-08 14:46 | HHI.PR ---
Subjective Remarks Follow up bacteremia. Patient reporting headache. No other complaints at this time. Head wound is healing. Objective Vitals Vital Signs Date Time Temp Pulse Resp B/P Pulse Ox O2 Delivery O2 Flow Rate FiO2 05/08/16 11:30 97.1 81 19 100/52 96 05/08/16 07:50 97.4 83 18 124/74 96 05/08/16 04:00 97.7 65 18 110/67 96 05/07/16 20:00 97.6 76 18 111/65 96 05/07/16 16:00 98.0 82 18 115/75 96 I/O 05/07/16 05/07/16 05/07/16 05/08/16 05/08/16 05/08/16 07:00 15:00 23:00 07:00 15:00 23:00 Intake Total 220 ml 960 ml Balance 220 ml 960 ml Intake Oral 220 ml 960 ml # Voids 3 3 # Bowel Movements 0 Result Diagram: 05/05/16 0905 05/08/16 0729 Imaging Last Impressions Chest CT 05/05/16 0000 Signed Impressions: Service Date/Time: Thursday, May 05, 2016 17:02 - CONCLUSION: 1. No acute findings on thoracic CT. No evidence for septic embolic disease to the lungs. Minimal dependent atelectasis in the lungs. No effusion. Juan Hendrix MD Abdomen/Pelvis CT 05/05/16 0000 Signed Impressions: Service Date/Time: Thursday, May 05, 2016 17:02 - CONCLUSION: 1. Liver cirrhosis with varices around the distal esophagus and splenic hilum and retroperitoneum on the left side. 2. No ascites. No bowel obstruction or free air. No adenopathy. Juan Hendrix MD Brain MRI 05/02/16 0000 Signed Impressions: Service Date/Time: Monday, May 02, 2016 12:05 - CONCLUSION: No acute intracranial disease. Ritchie Fatima MD Head CT 04/28/16 1401 Signed Impressions: Service Date/Time: Thursday, April 28, 2016 14:33 - CONCLUSION: No acute disease. Dell Tang MD FACR Chest X-Ray 04/28/16 1401 Signed Impressions: Service Date/Time: Thursday, April 28, 2016 14:26 - CONCLUSION: No acute disease. Dell Tang MD FACR Objective Remarks General: No acute distress. Heart: Regular rate and rhythm. No murmur. Lungs: Clear to auscultation bilaterally. No wheezes, rales, or rhonchi. Breathing is nonlabored. Abdomen: Soft, nontender, nondistended. Extremities: No lower extremity edema. Psych: Alert and oriented. Procedures None Urinary Catheter: No Vascular Central Line Catheter: No A/P Problem List: (1) Elevated transaminase level ICD Code: R74.0 Status: Acute (2) Lactic acidosis ICD Code: E87.2 Status: Resolved (3) Hypopotassemia ICD Code: E87.6 Status: Resolved (4) Hypernatremia ICD Code: E87.0 Status: Acute (5) Alcohol abuse ICD Code: F10.10 Status: Chronic (6) Alcohol intoxication ICD Code: F10.129 Status: Acute (7) Hypothermia ICD Code: T68.XXXA Status: Resolved (8) Sinus bradycardia ICD Code: R00.1 Status: Resolved (9) Wound abscess ICD Code: T81.4XXA Status: Acute Assessment and Plan Reviewed/updated 05/08/16. Repeat blood cultures from 05/03/16 are negative. Continue IV antibiotics per ID. 1. Acute delirium secondary to hypothermia, alcohol: Resolved. Continue [facility] protocol for alcohol withdrawal. No longer requiring lorazepam. 2. Occipital headache: Continue pain meds. Brain MRI is negative. 3. Sepsis, bacteremia: Blood cultures show polymicrobial infection. Appreciate infectious disease recommendations. Repeat cultures are negative so far. Continue antibiotics. CT thorax and CT abdomen/pelvis show no apparent abscess or septic emboli. 4. Transaminitis: Likely secondary to alcohol, hepatitis C. Improving. 5. GI prophylaxis: Protonix. 6. DVT prophylaxis: SCDs, heparin. Discharge Planning May consider transfer to [place] to complete IV antibiotics if no placement can be arranged. Problem Qualifiers (1) Alcohol intoxication: Qualified Code: F10.129 - Alcohol intoxication, with unspecified complication (2) Hypothermia: Qualified Code: T68.XXXA - Hypothermia, initial encounter (3) Wound abscess: Qualified Code: T81.4XXS - Wound abscess, sequela Zaki Cameron MD May 08, 2016 14:46
[2016-05-08 15:35] VITALS: BP 90/55; PULSE 70; RESP 19; TEMP 96.8; O2SAT 96
[2016-05-08 20:00] VITALS: BP 107/66; PULSE 71; RESP 18; TEMP 97.5; O2SAT 99
[2016-05-08] MEDS: REMOVE OLD NICODERM (NICOTINE) PATCH TD SCH (21:00)
[2016-05-09] VITALS: BP 110/69; PULSE 67; RESP 18; TEMP 97.3; O2SAT 99
[2016-05-09] MEDS: ACETAMINOPHEN/HYDROcodone 325 MG/10 MG TAB PO PRN ×6 (00:51→23:54)
[2016-05-09] MEDS: VANCOMYCIN INJ 2,000 MG in SODIUM CHLORID 0.9% 500 ML INJ 500 ML IV SCH ×2 (03:08→16:36)
[2016-05-09] MEDS: CHLORHEXIDINE GLUCONATE 2 % 1 PACK (2 CLOTHS) TOP SCH (03:25)
[2016-05-09 04:00] VITALS: BP 129/61; PULSE 71; RESP 18; TEMP 97.2; O2SAT 96
[2016-05-09] MEDS: CEFEPIME INJ 2,000 MG in SODIUM CHLORIDE 0.9% INJ 100 ML IV SCH ×3 (05:17→19:57)
[2016-05-09] MEDS: HEPARIN SODIUM - SQ 10,000 UNITS/ML VIAL SQ SCH ×2 (05:17→17:27)
[2016-05-09 07:48] VITALS: BP 119/64; PULSE 68; RESP 18; TEMP 96.6; O2SAT 96
[2016-05-09] MEDS: SODIUM HYPOCHLORITE 0.25% 500 ML BTL TOPICAL SCH ×2 (09:00→19:55)
[2016-05-09] MEDS: ARTIFICIAL TEARS OPTH SOLN 15 ML BTL EACH EYE SCH ×3 (09:00→17:28)
[2016-05-09] MEDS: SODIUM CHLORIDE 0.9% FLUSH 5 ML FLUSH IV FLUSH SCH ×2 (09:00→19:54)
[2016-05-09] MEDS: NICOTINE 14 MG/24 HR PATCH TD SCH (09:08)
[2016-05-09] MEDS: DOCUSATE SODIUM 100 MG CAP PO SCH ×2 (09:08→19:53)
[2016-05-09] MEDS: PANTOPRAZOLE SOD 40 MG DELAYED RELEASE TAB PO SCH (09:08)
[2016-05-09 11:35] VITALS: BP 117/69; PULSE 83; RESP 18; TEMP 96.9; O2SAT 93
--- NOTE | 2016-05-09 13:47 | HHI.PR ---
Subjective Remarks Follow up headache. States that he feels good at the moment. Still having the headache throughout the day, worse at night. No chest pain or dyspnea. Objective Vitals Vital Signs Date Time Temp Pulse Resp B/P Pulse Ox O2 Delivery O2 Flow Rate FiO2 05/09/16 11:35 96.9 83 18 117/69 93 05/09/16 07:48 96.6 68 18 119/64 96 05/09/16 04:00 97.2 71 18 129/61 96 05/09/16 00:00 97.3 67 18 110/69 99 05/08/16 22:02 Room Air 05/08/16 20:00 97.5 71 18 107/66 99 05/08/16 15:35 96.8 70 19 90/55 96 I/O 05/08/16 05/08/16 05/08/16 05/09/16 05/09/16 05/09/16 07:00 15:00 23:00 07:00 15:00 23:00 Intake Total 480 ml 710 ml Balance 480 ml 710 ml Intake Oral 480 ml IV Total 710 ml # Voids 2 2 # Bowel Movements 1 Result Diagram: 05/05/16 0905 05/08/16 0729 Imaging Last Impressions Chest CT 05/05/16 0000 Signed Impressions: Service Date/Time: Thursday, May 05, 2016 17:02 - CONCLUSION: 1. No acute findings on thoracic CT. No evidence for septic embolic disease to the lungs. Minimal dependent atelectasis in the lungs. No effusion. Juan Hendrix MD Abdomen/Pelvis CT 05/05/16 0000 Signed Impressions: Service Date/Time: Thursday, May 05, 2016 17:02 - CONCLUSION: 1. Liver cirrhosis with varices around the distal esophagus and splenic hilum and retroperitoneum on the left side. 2. No ascites. No bowel obstruction or free air. No adenopathy. Juan Hendrix MD Brain MRI 05/02/16 0000 Signed Impressions: Service Date/Time: Monday, May 02, 2016 12:05 - CONCLUSION: No acute intracranial disease. Ritchie Fatima MD Head CT 04/28/16 1401 Signed Impressions: Service Date/Time: Thursday, April 28, 2016 14:33 - CONCLUSION: No acute disease. Dell Tang MD FACR Chest X-Ray 04/28/16 1401 Signed Impressions: Service Date/Time: Thursday, April 28, 2016 14:26 - CONCLUSION: No acute disease. Dell Tang MD FACR Objective Remarks General: No acute distress. Sitting up in a chair. Heart: Regular rate and rhythm. No murmur. Lungs: Clear to auscultation bilaterally. No wheezes, rales, or rhonchi. Breathing is nonlabored. Abdomen: Soft, nontender, nondistended. Extremities: No lower extremity edema. Psych: Alert and oriented. Procedures None Urinary Catheter: No Vascular Central Line Catheter: No A/P Problem List: (1) Elevated transaminase level ICD Code: R74.0 Status: Acute (2) Lactic acidosis ICD Code: E87.2 Status: Resolved (3) Hypopotassemia ICD Code: E87.6 Status: Resolved (4) Hypernatremia ICD Code: E87.0 Status: Acute (5) Alcohol abuse ICD Code: F10.10 Status: Chronic (6) Alcohol intoxication ICD Code: F10.129 Status: Acute (7) Hypothermia ICD Code: T68.XXXA Status: Resolved (8) Sinus bradycardia ICD Code: R00.1 Status: Resolved (9) Wound abscess ICD Code: T81.4XXA Status: Acute Assessment and Plan Reviewed/updated 05/09/16. Repeat blood cultures from 05/03/16 are negative. Continue IV antibiotics per ID. Now off IV pain meds. 1. Acute delirium secondary to hypothermia, alcohol: Resolved. Continue [facility] protocol for alcohol withdrawal. No longer requiring lorazepam. 2. Occipital headache: Continue pain meds. Brain MRI is negative. 3. Sepsis, bacteremia: Blood cultures show polymicrobial infection. Appreciate infectious disease recommendations. Repeat cultures are negative so far. Continue antibiotics. CT thorax and CT abdomen/pelvis show no apparent abscess or septic emboli. 4. Transaminitis: Likely secondary to alcohol, hepatitis C. Improving. 5. GI prophylaxis: Protonix. 6. DVT prophylaxis: SCDs, heparin. Discharge Planning May consider transfer to [place] to complete IV antibiotics if no placement can be arranged. Problem Qualifiers (1) Alcohol intoxication: Qualified Code: F10.129 - Alcohol intoxication, with unspecified complication (2) Hypothermia: Qualified Code: T68.XXXA - Hypothermia, initial encounter (3) Wound abscess: Qualified Code: T81.4XXS - Wound abscess, sequela Zaki Cameron MD May 09, 2016 13:47
[2016-05-09 15:35] VITALS: BP 97/66; PULSE 81; RESP 18; TEMP 97.1; O2SAT 97
[2016-05-09] MEDS: REMOVE OLD NICODERM (NICOTINE) PATCH TD SCH (19:54)
[2016-05-09 20:00] VITALS: BP 104/56; PULSE 69; RESP 18; TEMP 97.6; O2SAT 96
[2016-05-10] VITALS: BP 110/58; PULSE 72; RESP 18; TEMP 97.3; O2SAT 96
[2016-05-10] MEDS: VANCOMYCIN INJ 2,000 MG in SODIUM CHLORID 0.9% 500 ML INJ 500 ML IV SCH (03:03)
[2016-05-10 03:23] LABS: VANCOMYCIN TROUGH 24.5 MCG/ML (5.0-10.0)
[2016-05-10] MEDS: ACETAMINOPHEN/HYDROcodone 325 MG/10 MG TAB PO PRN ×3 (03:50→21:37)
[2016-05-10] MEDS: CEFEPIME INJ 2,000 MG in SODIUM CHLORIDE 0.9% INJ 100 ML IV SCH ×3 (03:51→21:38)
[2016-05-10] MEDS: CHLORHEXIDINE GLUCONATE 2 % 1 PACK (2 CLOTHS) TOP SCH ×2 (03:52→21:40)
[2016-05-10 04:00] VITALS: BP 108/62; PULSE 68; RESP 18; TEMP 97.8; O2SAT 95
[2016-05-10] MEDS: HEPARIN SODIUM - SQ 10,000 UNITS/ML VIAL SQ SCH ×2 (05:09→17:26)
[2016-05-10 08:26] VITALS: BP 121/76; PULSE 67; RESP 15; TEMP 97.7; O2SAT 96
[2016-05-10] MEDS: REMOVE OLD NICODERM (NICOTINE) PATCH TD SCH (08:35)
[2016-05-10] MEDS: PANTOPRAZOLE SOD 40 MG DELAYED RELEASE TAB PO SCH (08:35)
[2016-05-10] MEDS: NICOTINE 14 MG/24 HR PATCH TD SCH (08:35)
[2016-05-10] MEDS: DOCUSATE SODIUM 100 MG CAP PO SCH ×2 (08:36→21:00)
[2016-05-10] MEDS: SODIUM HYPOCHLORITE 0.25% 500 ML BTL TOPICAL SCH ×2 (08:37→21:40)
[2016-05-10] MEDS: ARTIFICIAL TEARS OPTH SOLN 15 ML BTL EACH EYE SCH ×3 (08:38→17:26)
[2016-05-10] MEDS: SODIUM CHLORIDE 0.9% FLUSH 5 ML FLUSH IV FLUSH SCH ×2 (08:38→21:40)
[2016-05-10 12:34] VITALS: BP 103/64; PULSE 73; RESP 16; TEMP 97.2; O2SAT 94
[2016-05-10] MEDS: ACETAMINOPHEN/HYDROcodone 325 MG/5 MG TAB PO PRN ×2 (13:33→17:25)
[2016-05-10 16:53] VITALS: BP 90/58; PULSE 71; RESP 16; TEMP 97.3; O2SAT 96
--- NOTE | 2016-05-10 18:33 | HHI.IDPN ---
Subjective Subjective Remarks Mr. Lagos is a 55 y/o CM with PMHx of Hepatitis C, IVDA, claustrophobia, Alcoholism, Hypertension, Depression, H/o MRSA infection to the left hand. With this background patient was admitted at [facility] on 04/29/2016 as patient was found at home by the fire department sitting up on his tile floor at home surrounded by alcohol bottles. He was hypothermic and able to speak a few words. He is transferred to [facility] for further evaluation. Overnight events reviewed. No fevers No rash No diarrhea Antibiotics Zosyn IV Vanco IV Lines Line sites with no e/o infection. Past Medical History reviewed Allergies: Coded Allergies: *MDRO Multi-Drug Resistant Organism (Verified Adverse Reaction, Unknown, ) MRSA (urine)-04/28/16 & (blood)-04/29/16 Objective . Vital Signs Date Time Temp Pulse Resp B/P Pulse Ox O2 Delivery O2 Flow Rate FiO2 05/10/16 16:53 97.3 71 16 90/58 96 05/10/16 14:38 16 05/10/16 12:34 97.2 73 16 103/64 94 05/10/16 09:40 16 05/10/16 08:26 97.7 67 15 121/76 96 05/10/16 04:00 97.8 68 18 108/62 95 05/10/16 00:00 97.3 72 18 110/58 96 05/09/16 20:00 97.6 69 18 104/56 96 05/09/16 05/09/16 05/10/16 15:00 23:00 07:00 Intake Total 950 ml 480 ml Output Total 1125 ml Balance 950 ml -645 ml Intake Oral 240 ml 480 ml IV Total 710 ml Output Urine Total 1125 ml # Voids 5 # Bowel Movements 0 . Laboratory Tests Test 05/10/16 02:40 Creatinine 0.73 MG/DL Estimat Glomerular Filtration 111 ML/MIN Rate Imaging Last Impressions Head CT 04/28/16 1401 Signed Impressions: Service Date/Time: Thursday, April 28, 2016 14:33 - CONCLUSION: No acute disease. Dell Tang MD FACR Chest X-Ray 04/28/16 1401 Signed Impressions: Service Date/Time: Thursday, April 28, 2016 14:26 - CONCLUSION: No acute disease. Dell Tang MD FACR Physical Exam GENERAL: This is a well-nourished, well-developed patient, in no apparent distress. Overall poor hygiene. SKIN: No rashes. HEAD: Atraumatic. Normocephalic. Posterior scalp area with scab from prior head injury. No e/o local infection, induration or fluctuance. EYES: Pupils equal round and reactive. Extraocular motions intact. No scleral icterus. No injection or drainage. ENT: Nose without bleeding, purulent drainage or septal hematoma. Throat without erythema, tonsillar hypertrophy or exudate. Uvula midline. Airway patent. NECK: Trachea midline. No JVD or lymphadenopathy. Supple, nontender, no meningeal signs. CARDIOVASCULAR: Regular rate and rhythm without murmurs, gallops, or rubs. RESPIRATORY: Clear to auscultation. Breath sounds equal bilaterally. No wheezes , rales, or rhonchi. GASTROINTESTINAL: Abdomen soft, non-tender, nondistended. MUSCULOSKELETAL: Extremities without clubbing, cyanosis, or edema. No joint tenderness, effusion, or edema noted. No calf tenderness. Negative Homans sign bilaterally. NEUROLOGICAL: Awake and alert. Grossly non focal Psych: cooperative IV line sites with no e/o infection. Assessment & Plan Remarks Sepsis present on admission. Polymicrobial bacteremia: was septic on arrival. Multiple organisms: E.faecalis , Acinetobacter Lowafii, Coag neg staph bacteremia. MRSA bacteremia. MRSA in urine likely from translocation. Hepatitis C IVDA Alcoholism Liver Cirrhosis. Recs: Continue Zosyn IV (stop date: 05/13/2016) Continue Vanco IV per pharmacy (target trough 15-20) (stop date: 05/13/2016) ECHO with no vegetations. No need for OPHELIA. dWilliew no need for PO transfer as only few more days left for completion. Continue Weaning off pain meds. Will sign off please call back if any change in clinical condition or questions. Rosio Allen MD May 10, 2016 18:33
--- NOTE | 2016-05-10 18:48 | HHI.PR ---
Subjective Remarks Follow-up for bacteremia. Patient is doing well. Denies any chest pain, shortness of breath, fever or chills. Tolerating diet well. Objective Vitals Vital Signs Date Time Temp Pulse Resp B/P Pulse Ox O2 Delivery O2 Flow Rate FiO2 05/10/16 16:53 97.3 71 16 90/58 96 05/10/16 14:38 16 05/10/16 12:34 97.2 73 16 103/64 94 05/10/16 09:40 16 05/10/16 08:26 97.7 67 15 121/76 96 05/10/16 04:00 97.8 68 18 108/62 95 05/10/16 00:00 97.3 72 18 110/58 96 05/09/16 20:00 97.6 69 18 104/56 96 I/O 05/09/16 05/09/16 05/09/16 05/10/16 05/10/16 05/10/16 07:00 15:00 23:00 07:00 15:00 23:00 Intake Total 950 ml 480 ml 720 ml 100 ml Output Total 1125 ml Balance 950 ml -645 ml 720 ml 100 ml Intake Oral 240 ml 480 ml 720 ml IV Total 710 ml 100 ml Output Urine Total 1125 ml # Voids 2 5 3 # Bowel Movements 1 0 1 Result Diagram: 05/10/16 0240 Imaging Last Impressions Chest CT 05/05/16 0000 Signed Impressions: Service Date/Time: Thursday, May 05, 2016 17:02 - CONCLUSION: 1. No acute findings on thoracic CT. No evidence for septic embolic disease to the lungs. Minimal dependent atelectasis in the lungs. No effusion. Juan Hendrix MD Abdomen/Pelvis CT 05/05/16 0000 Signed Impressions: Service Date/Time: Thursday, May 05, 2016 17:02 - CONCLUSION: 1. Liver cirrhosis with varices around the distal esophagus and splenic hilum and retroperitoneum on the left side. 2. No ascites. No bowel obstruction or free air. No adenopathy. Juan Hendrix MD Brain MRI 05/02/16 0000 Signed Impressions: Service Date/Time: Monday, May 02, 2016 12:05 - CONCLUSION: No acute intracranial disease. Ritchie Fatima MD Head CT 04/28/16 1401 Signed Impressions: Service Date/Time: Thursday, April 28, 2016 14:33 - CONCLUSION: No acute disease. Dell Tang MD FACR Chest X-Ray 04/28/16 1401 Signed Impressions: Service Date/Time: Thursday, April 28, 2016 14:26 - CONCLUSION: No acute disease. Dell Tang MD FACR Objective Remarks GENERAL: Alert, Oriented x 3, NAD. SKIN: Warm and dry. HEAD: Normocephalic. EYES: No scleral icterus. No injection or drainage. NECK: Supple, trachea midline. No JVD or lymphadenopathy. CARDIOVASCULAR: Regular rate and rhythm without murmurs, gallops, or rubs. RESPIRATORY: Breath sounds equal bilaterally. No accessory muscle use. GASTROINTESTINAL: Abdomen soft, non-tender, nondistended. MUSCULOSKELETAL: No cyanosis, or edema. BACK: Nontender without obvious deformity. No CVA tenderness. Procedures None A/P Problem List: (1) Elevated transaminase level ICD Code: R74.0 Status: Acute (2) Lactic acidosis ICD Code: E87.2 Status: Resolved (3) Hypopotassemia ICD Code: E87.6 Status: Resolved (4) Hypernatremia ICD Code: E87.0 Status: Acute (5) Alcohol abuse ICD Code: F10.10 Status: Chronic (6) Alcohol intoxication ICD Code: F10.129 Status: Acute (7) Hypothermia ICD Code: T68.XXXA Status: Resolved (8) Sinus bradycardia ICD Code: R00.1 Status: Resolved (9) Wound abscess ICD Code: T81.4XXA Status: Acute Assessment and Plan 55-year-old male with a past medical history of polysubstance abuse, HTN and was admitted for altered mental status 1. Acute delirium secondary to hypothermia, alcohol: Resolved. Continue [facility] protocol for alcohol withdrawal. PT eval. 2. Occipital headache: Brain MRI is negative for acute process. [place] as needed. 3. Sepsis, bacteremia: Blood cultures 04/28 and 04/29 showed polymicrobial infection. Appreciate infectious disease recommendations. CT thorax and CT abdomen/pelvis show no apparent abscess or septic emboli. Repeat cultures 05/03 are negative x5 days. Continue IV antibiotics until 05/13. 4. Transaminitis: Likely secondary to alcohol, hepatitis C. Improving. 5. GI prophylaxis: Protonix. 6. DVT prophylaxis: SCDs, heparin. Problem Qualifiers (1) Alcohol intoxication: Qualified Code: F10.129 - Alcohol intoxication, with unspecified complication (2) Hypothermia: Qualified Code: T68.XXXA - Hypothermia, initial encounter (3) Wound abscess: Qualified Code: T81.4XXS - Wound abscess, sequela Tiffany Lorenzo DO May 10, 2016 6:48 pm
[2016-05-10 20:48] VITALS: BP 102/58; PULSE 98; RESP 18; TEMP 96.8; O2SAT 97
[2016-05-11 00:36] VITALS: BP 106/58; PULSE 66; RESP 18; TEMP 97.8; O2SAT 97
[2016-05-11] MEDS: ACETAMINOPHEN/HYDROcodone 325 MG/10 MG TAB PO PRN ×5 (02:27→22:04)
[2016-05-11] MEDS: CEFEPIME INJ 2,000 MG in SODIUM CHLORIDE 0.9% INJ 100 ML IV SCH ×3 (05:15→22:06)
[2016-05-11] MEDS: HEPARIN SODIUM - SQ 10,000 UNITS/ML VIAL SQ SCH ×2 (05:16→18:22)
[2016-05-11 05:22] VITALS: BP 108/74; PULSE 79; RESP 18; TEMP 97.5; O2SAT 98
[2016-05-11 08:32] VITALS: BP 106/66; PULSE 89; RESP 16; TEMP 97.7; O2SAT 96
[2016-05-11] MEDS: ARTIFICIAL TEARS OPTH SOLN 15 ML BTL EACH EYE SCH ×3 (09:00→18:00)
[2016-05-11] MEDS: PANTOPRAZOLE SOD 40 MG DELAYED RELEASE TAB PO SCH (10:10)
[2016-05-11] MEDS: DOCUSATE SODIUM 100 MG CAP PO SCH ×2 (10:10→21:00)
[2016-05-11] MEDS: REMOVE OLD NICODERM (NICOTINE) PATCH TD SCH (10:11)
[2016-05-11] MEDS: NICOTINE 14 MG/24 HR PATCH TD SCH (10:11)
[2016-05-11] MEDS: SODIUM HYPOCHLORITE 0.25% 500 ML BTL TOPICAL SCH ×2 (10:11→22:05)
[2016-05-11] MEDS: SODIUM CHLORIDE 0.9% FLUSH 5 ML FLUSH IV FLUSH SCH ×2 (10:12→22:05)
[2016-05-11] MEDS: VANCOMYCIN INJ 1,500 MG in SODIUM CHLORID 0.9% 500 ML INJ 500 ML IV SCH (11:32)
[2016-05-11 13:00] VITALS: BP 113/65; PULSE 72; RESP 16; TEMP 96.5; O2SAT 97
--- NOTE | 2016-05-11 15:42 | HHI.PR ---
Subjective Remarks Follow-up for bacteremia. The patient is sitting up in the couch in his room. He has no acute complaints today. When asked about fevers or chills, denies any specifics, but states he did feel cold earlier. He's been tolerating diet. Able to ambulate some, and feels like he can ambulate around the unit. He has a friend that can help him at home on Tuesday. Objective Vitals Vital Signs Date Time Temp Pulse Resp B/P Pulse Ox O2 Delivery O2 Flow Rate FiO2 05/11/16 13:00 96.5 72 16 113/65 97 05/11/16 08:32 97.7 89 16 106/66 96 05/11/16 08:10 16 05/11/16 05:22 97.5 79 18 108/74 98 05/11/16 00:36 97.8 66 18 106/58 97 05/10/16 20:48 96.8 98 18 102/58 97 05/10/16 18:30 15 05/10/16 16:53 97.3 71 16 90/58 96 I/O 05/10/16 05/10/16 05/10/16 05/11/16 05/11/16 05/11/16 07:00 15:00 23:00 07:00 15:00 23:00 Intake Total 480 ml 720 ml 550 ml Output Total 1125 ml Balance -645 ml 720 ml 550 ml Intake Oral 480 ml 720 ml 450 ml IV Total 100 ml Output Urine Total 1125 ml # Voids 3 2 2 # Bowel Movements 1 1 Result Diagram: 05/11/16 0653 Imaging Last Impressions Chest CT 05/05/16 0000 Signed Impressions: Service Date/Time: Thursday, May 05, 2016 17:02 - CONCLUSION: 1. No acute findings on thoracic CT. No evidence for septic embolic disease to the lungs. Minimal dependent atelectasis in the lungs. No effusion. Juan Hendrix MD Abdomen/Pelvis CT 05/05/16 0000 Signed Impressions: Service Date/Time: Thursday, May 05, 2016 17:02 - CONCLUSION: 1. Liver cirrhosis with varices around the distal esophagus and splenic hilum and retroperitoneum on the left side. 2. No ascites. No bowel obstruction or free air. No adenopathy. Juan Hendrix MD Brain MRI 05/02/16 0000 Signed Impressions: Service Date/Time: Monday, May 02, 2016 12:05 - CONCLUSION: No acute intracranial disease. Ritchie Fatima MD Head CT 04/28/16 1401 Signed Impressions: Service Date/Time: Thursday, April 28, 2016 14:33 - CONCLUSION: No acute disease. Dell Tang MD FACR Chest X-Ray 04/28/16 1401 Signed Impressions: Service Date/Time: Thursday, April 28, 2016 14:26 - CONCLUSION: No acute disease. Dell Tang MD FACR Objective Remarks GENERAL: Well-developed well-nourished. In no acute distress. SKIN: Warm and dry. No lesions noted. HEENT: Normocephalic. Pupils equal and round. Mucous membranes pink and moist. CARDIOVASCULAR: Regular rate and rhythm. No murmur appreciated. RESPIRATORY: No accessory muscle use. Clear to auscultation. Breath sounds equal bilaterally. GASTROINTESTINAL: Abdomen soft, non-tender, nondistended. Bowel sounds x4. MUSCULOSKELETAL: No obvious deformities. No clubbing or cyanosis. No edema. NEUROLOGICAL: Awake and alert. No focal neurological deficits. Moves upper and lower extremities spontaneously. Normal speech. PSYCHIATRIC: Appropriate mood and affect; insight and judgment fair to normal. Procedures None A/P Problem List: (1) Elevated transaminase level ICD Code: R74.0 Status: Acute (2) Lactic acidosis ICD Code: E87.2 Status: Resolved (3) Hypopotassemia ICD Code: E87.6 Status: Resolved (4) Hypernatremia ICD Code: E87.0 Status: Acute (5) Alcohol abuse ICD Code: F10.10 Status: Chronic (6) Alcohol intoxication ICD Code: F10.129 Status: Acute (7) Hypothermia ICD Code: T68.XXXA Status: Resolved (8) Sinus bradycardia ICD Code: R00.1 Status: Resolved (9) Wound abscess ICD Code: T81.4XXA Status: Acute Assessment and Plan 55-year-old male with a past medical history of polysubstance abuse, HTN and was admitted for altered mental status 1. Acute delirium secondary to hypothermia, alcohol: Resolved. Continue [facility] protocol for alcohol withdrawal. PT eval. 2. Occipital headache: Brain MRI is negative for acute process. [place] as needed. 3. Sepsis, bacteremia: Blood cultures 04/28 and 04/29 showed polymicrobial infection. Appreciate infectious disease recommendations. CT thorax and CT abdomen/pelvis show no apparent abscess or septic emboli. Repeat cultures 05/03 are negative x5 days. Continue IV antibiotics until 05/13. 4. Transaminitis: Likely secondary to alcohol, hepatitis C. Improving. 5. GI prophylaxis: Protonix. 6. DVT prophylaxis: SCDs, heparin. Written by Patrick Brennan, acting as scribe for Dr. Lorenzo on 05/11/16 at 15:42. The documentation accurately reflects the work performed [id number] by me on at 1542. Discharge Planning Difficulties with SNF placement. Plan for completion of IV antibiotics 05/13. Likely discharge with [facility] afterwards. Problem Qualifiers (1) Alcohol intoxication: Qualified Code: F10.129 - Alcohol intoxication, with unspecified complication (2) Hypothermia: Qualified Code: T68.XXXA - Hypothermia, initial encounter (3) Wound abscess: Qualified Code: T81.4XXS - Wound abscess, sequela Patrick Brennan May 11, 2016 3:42 pm Tiffany Lorenzo DO May 11, 2016 5:01 pm
[2016-05-11 16:04] VITALS: BP 119/72; PULSE 74; RESP 17; TEMP 96; O2SAT 98
[2016-05-11 20:54] VITALS: BP 115/69; PULSE 69; RESP 20; TEMP 96.1; O2SAT 98
[2016-05-12 00:24] VITALS: BP 114/59; PULSE 73; RESP 20; TEMP 97; O2SAT 96
[2016-05-12] MEDS: VANCOMYCIN INJ 1,500 MG in SODIUM CHLORID 0.9% 500 ML INJ 500 ML IV SCH ×2 (01:23→12:00)
[2016-05-12] MEDS: ACETAMINOPHEN/HYDROcodone 325 MG/10 MG TAB PO PRN ×5 (02:31→22:29)
[2016-05-12] MEDS: CHLORHEXIDINE GLUCONATE 2 % 1 PACK (2 CLOTHS) TOP SCH (04:00)
[2016-05-12] MEDS: CEFEPIME INJ 2,000 MG in SODIUM CHLORIDE 0.9% INJ 100 ML IV SCH ×3 (04:31→16:37)
[2016-05-12] MEDS: HEPARIN SODIUM - SQ 10,000 UNITS/ML VIAL SQ SCH ×2 (04:31→16:36)
[2016-05-12 05:28] VITALS: BP 115/68; PULSE 67; RESP 20; TEMP 97.6; O2SAT 97
[2016-05-12 08:00] VITALS: BP 106/68; PULSE 69; RESP 18; TEMP 97.8; O2SAT 97
[2016-05-12] MEDS: ARTIFICIAL TEARS OPTH SOLN 15 ML BTL EACH EYE SCH ×3 (09:00→16:36)
[2016-05-12] MEDS: DOCUSATE SODIUM 100 MG CAP PO SCH ×2 (09:33→22:25)
[2016-05-12] MEDS: PANTOPRAZOLE SOD 40 MG DELAYED RELEASE TAB PO SCH (09:33)
[2016-05-12] MEDS: NICOTINE 14 MG/24 HR PATCH TD SCH (09:34)
[2016-05-12] MEDS: SODIUM HYPOCHLORITE 0.25% 500 ML BTL TOPICAL SCH ×2 (09:34→22:27)
[2016-05-12] MEDS: SODIUM CHLORIDE 0.9% FLUSH 5 ML FLUSH IV FLUSH SCH ×2 (09:34→22:24)
[2016-05-12 12:00] VITALS: BP 118/65; PULSE 82; RESP 18; TEMP 97.2; O2SAT 96
--- NOTE | 2016-05-12 14:07 | HHI.PR ---
Subjective Remarks The patient complains of occipital headache today. He states he feels a little dizzy. He was able to ambulate with PT today with no difficulties. Has been trying Millis for headache, which helps briefly, then headache returns. Objective Vitals Vital Signs Date Time Temp Pulse Resp B/P Pulse Ox O2 Delivery O2 Flow Rate FiO2 05/12/16 12:00 97.2 82 18 118/65 96 05/12/16 08:00 97.8 69 18 106/68 97 05/12/16 07:00 Room Air 05/12/16 05:28 97.6 67 20 115/68 97 05/12/16 00:24 97.0 73 20 114/59 96 05/11/16 23:04 18 05/11/16 20:54 96.1 69 20 115/69 98 05/11/16 16:04 96.0 74 17 119/72 98 I/O 05/11/16 05/11/16 05/11/16 05/12/16 05/12/16 05/12/16 07:00 15:00 23:00 07:00 15:00 23:00 Intake Total 720 ml 480 ml Balance 720 ml 480 ml Intake Oral 720 ml 480 ml # Voids 2 3 2 3 # Bowel Movements 1 1 1 0 Result Diagram: 05/12/16 0800 Imaging Last Impressions Chest CT 05/05/16 0000 Signed Impressions: Service Date/Time: Thursday, May 05, 2016 17:02 - CONCLUSION: 1. No acute findings on thoracic CT. No evidence for septic embolic disease to the lungs. Minimal dependent atelectasis in the lungs. No effusion. Juan Hendrix MD Abdomen/Pelvis CT 05/05/16 0000 Signed Impressions: Service Date/Time: Thursday, May 05, 2016 17:02 - CONCLUSION: 1. Liver cirrhosis with varices around the distal esophagus and splenic hilum and retroperitoneum on the left side. 2. No ascites. No bowel obstruction or free air. No adenopathy. Juan Hendrix MD Brain MRI 05/02/16 0000 Signed Impressions: Service Date/Time: Monday, May 02, 2016 12:05 - CONCLUSION: No acute intracranial disease. Ritchie Fatima MD Head CT 04/28/16 1401 Signed Impressions: Service Date/Time: Thursday, April 28, 2016 14:33 - CONCLUSION: No acute disease. Dell Tang MD FACR Chest X-Ray 04/28/16 1401 Signed Impressions: Service Date/Time: Thursday, April 28, 2016 14:26 - CONCLUSION: No acute disease. Dell Tang MD FACR Objective Remarks GENERAL: Well-developed well-nourished. In no acute distress. Sitting up in a chair. SKIN: Warm and dry. No lesions noted. HEENT: Normocephalic. Pupils equal and round. Mucous membranes pink and moist. CARDIOVASCULAR: Regular rate and rhythm. No murmur appreciated. RESPIRATORY: No accessory muscle use. Clear to auscultation. Breath sounds equal bilaterally. GASTROINTESTINAL: Abdomen soft, non-tender, nondistended. Bowel sounds x4. MUSCULOSKELETAL: No obvious deformities. No clubbing or cyanosis. No edema. NEUROLOGICAL: Awake and alert. No focal neurological deficits. Moves upper and lower extremities spontaneously. Normal speech. PSYCHIATRIC: Appropriate mood and affect; insight and judgment fair to normal. Procedures None A/P Problem List: (1) Elevated transaminase level ICD Code: R74.0 Status: Acute (2) Lactic acidosis ICD Code: E87.2 Status: Resolved (3) Hypopotassemia ICD Code: E87.6 Status: Resolved (4) Hypernatremia ICD Code: E87.0 Status: Acute (5) Alcohol abuse ICD Code: F10.10 Status: Chronic (6) Alcohol intoxication ICD Code: F10.129 Status: Acute (7) Hypothermia ICD Code: T68.XXXA Status: Resolved (8) Sinus bradycardia ICD Code: R00.1 Status: Resolved (9) Wound abscess ICD Code: T81.4XXA Status: Acute Assessment and Plan 55-year-old male with a past medical history of polysubstance abuse, HTN and was admitted for altered mental status 1. Acute delirium secondary to hypothermia, alcohol: Resolved. Continue [facility] protocol for alcohol withdrawal. PT. 2. Occipital headache: Brain MRI is negative for acute process. Try to avoid Millis, possibly pleuritic headache. Tylenol as needed. Consider Fioricet if no improvement. 3. Sepsis, bacteremia: Blood cultures 04/28 and 04/29 showed polymicrobial infection. Appreciate infectious disease recommendations. CT thorax and CT abdomen/pelvis show no apparent abscess or septic emboli. Repeat cultures 05/03 are negative x5 days. Continue IV antibiotics until 05/13. 4. Transaminitis: Likely secondary to alcohol, hepatitis C. Improving. 5. GI prophylaxis: Protonix. 6. DVT prophylaxis: SCDs, heparin. 7. Dizziness: Check orthostatics and treat as indicated. Written by Patrick Brennan, acting as scribe for Dr. Lorenzo on 05/12/16 at 14:06. The documentation accurately reflects the work performed [id number] by ky on at 14:06. Discharge Planning Difficulties with SNF placement. Plan for completion of IV antibiotics 05/13. Cleared by PT, no [facility] PT needed. Problem Qualifiers (1) Alcohol intoxication: Qualified Code: F10.129 - Alcohol intoxication, with unspecified complication (2) Hypothermia: Qualified Code: T68.XXXA - Hypothermia, initial encounter (3) Wound abscess: Qualified Code: T81.4XXS - Wound abscess, sequela Patrick Brennan May 12, 2016 14:07 Tiffany Lorenzo DO May 12, 2016 20:46
[2016-05-12 16:00] VITALS: BP 111/69; PULSE 80; RESP 18; TEMP 96.3; O2SAT 98
[2016-05-12 20:00] VITALS: BP 104/67; PULSE 68; RESP 18; TEMP 96.3; O2SAT 99
[2016-05-12] MEDS: REMOVE OLD NICODERM (NICOTINE) PATCH TD SCH (21:00)
[2016-05-13] VITALS (7 sets, daily range): BP systolic 100–162; BP diastolic 58–95; PULSE 65–97; RESP 18–20; TEMP 96.7–99.2; O2SAT 94–99
[2016-05-13] MEDS: VANCOMYCIN INJ 1,500 MG in SODIUM CHLORID 0.9% 500 ML INJ 500 ML IV SCH ×2 (02:04→13:09)
[2016-05-13] MEDS: ACETAMINOPHEN/HYDROcodone 325 MG/10 MG TAB PO PRN ×2 (02:48→22:53)
[2016-05-13] MEDS: CHLORHEXIDINE GLUCONATE 2 % 1 PACK (2 CLOTHS) TOP SCH (03:23)
[2016-05-13] MEDS: CEFEPIME INJ 2,000 MG in SODIUM CHLORIDE 0.9% INJ 100 ML IV SCH ×3 (04:52→22:49)
[2016-05-13] MEDS: SODIUM CHLORIDE 0.9% FLUSH 5 ML FLUSH IV FLUSH PRN (04:52)
[2016-05-13] MEDS: HEPARIN SODIUM - SQ 10,000 UNITS/ML VIAL SQ SCH ×2 (05:00→17:28)
[2016-05-13] MEDS: ACETAMINOPHEN/HYDROcodone 325 MG/5 MG TAB PO PRN ×4 (07:04→18:59)
[2016-05-13] MEDS: ARTIFICIAL TEARS OPTH SOLN 15 ML BTL EACH EYE SCH ×3 (09:00→17:28)
[2016-05-13] MEDS: SODIUM CHLORIDE 0.9% FLUSH 5 ML FLUSH IV FLUSH SCH ×2 (09:00→22:50)
[2016-05-13] MEDS: DOCUSATE SODIUM 100 MG CAP PO SCH ×2 (09:00→22:50)
[2016-05-13] MEDS: PANTOPRAZOLE SOD 40 MG DELAYED RELEASE TAB PO SCH (09:00)
[2016-05-13] MEDS: NICOTINE 14 MG/24 HR PATCH TD SCH (09:00)
[2016-05-13] MEDS: SODIUM HYPOCHLORITE 0.25% 500 ML BTL TOPICAL SCH ×2 (09:00→22:51)
[2016-05-13] MEDS ORDERED: PHARMACY ORDERED LAB XX ONE (11:45)
--- NOTE | 2016-05-13 14:40 | HHI.PR ---
Subjective Remarks The patient had an IV infiltration in his left arm last night. He has some mild pain and swelling of his left forearm around the site. He states that he will need a ride home tomorrow. Objective Vitals Vital Signs Date Time Temp Pulse Resp B/P Pulse Ox O2 Delivery O2 Flow Rate FiO2 05/13/16 12:20 98.2 97 20 100/58 96 05/13/16 08:00 99.2 96 19 111/60 96 05/13/16 04:54 98.2 65 18 102/75 98 05/13/16 04:50 73 18 122/72 98 05/13/16 04:50 91 18 113/75 98 05/13/16 04:00 17 05/13/16 00:54 96.7 68 18 110/66 99 05/12/16 20:00 96.3 68 18 104/67 99 05/12/16 16:00 96.3 80 18 111/69 98 I/O 05/12/16 05/12/16 05/12/16 05/13/16 05/13/16 05/13/16 07:00 15:00 23:00 07:00 15:00 23:00 Intake Total 480 ml 960 ml 1103 ml Balance 480 ml 960 ml 1103 ml Intake Oral 480 ml 960 ml 480 ml IV Total 623 ml # Voids 3 4 2 # Bowel Movements 0 1 Result Diagram: 05/12/16 0800 Imaging Last Impressions Chest CT 05/05/16 0000 Signed Impressions: Service Date/Time: Thursday, May 05, 2016 17:02 - CONCLUSION: 1. No acute findings on thoracic CT. No evidence for septic embolic disease to the lungs. Minimal dependent atelectasis in the lungs. No effusion. Juan Hendrix MD Abdomen/Pelvis CT 05/05/16 0000 Signed Impressions: Service Date/Time: Thursday, May 05, 2016 17:02 - CONCLUSION: 1. Liver cirrhosis with varices around the distal esophagus and splenic hilum and retroperitoneum on the left side. 2. No ascites. No bowel obstruction or free air. No adenopathy. Juan Hendrix MD Brain MRI 05/02/16 0000 Signed Impressions: Service Date/Time: Monday, May 02, 2016 12:05 - CONCLUSION: No acute intracranial disease. Ritchie Fatima MD Head CT 04/28/16 1401 Signed Impressions: Service Date/Time: Thursday, April 28, 2016 14:33 - CONCLUSION: No acute disease. Dell Tang MD FACR Chest X-Ray 04/28/16 1401 Signed Impressions: Service Date/Time: Thursday, April 28, 2016 14:26 - CONCLUSION: No acute disease. Dell Tang MD FACR Objective Remarks GENERAL: Well-developed well-nourished. In no acute distress. Sitting up in a chair. SKIN: Warm and dry. Left forearm with induration and erythema. HEENT: Normocephalic. Pupils equal and round. Mucous membranes pink and moist. CARDIOVASCULAR: Regular rate and rhythm. No murmur appreciated. RESPIRATORY: No accessory muscle use. Clear to auscultation. Breath sounds equal bilaterally. GASTROINTESTINAL: Abdomen soft, non-tender, nondistended. Bowel sounds x4. MUSCULOSKELETAL: No obvious deformities. No clubbing or cyanosis. No edema. NEUROLOGICAL: Awake and alert. No focal neurological deficits. Moves upper and lower extremities spontaneously. Normal speech. PSYCHIATRIC: Appropriate mood and affect; insight and judgment fair to normal. Procedures None A/P Problem List: (1) Elevated transaminase level ICD Code: R74.0 Status: Acute (2) Lactic acidosis ICD Code: E87.2 Status: Resolved (3) Hypopotassemia ICD Code: E87.6 Status: Resolved (4) Hypernatremia ICD Code: E87.0 Status: Acute (5) Alcohol abuse ICD Code: F10.10 Status: Chronic (6) Alcohol intoxication ICD Code: F10.129 Status: Acute (7) Hypothermia ICD Code: T68.XXXA Status: Resolved (8) Sinus bradycardia ICD Code: R00.1 Status: Resolved (9) Wound abscess ICD Code: T81.4XXA Status: Acute Assessment and Plan 55-year-old male with a past medical history of polysubstance abuse, HTN and was admitted for altered mental status 1. Acute delirium secondary to hypothermia, alcohol: Resolved. Continue [facility] protocol for alcohol withdrawal. PT. 2. Occipital headache: Brain MRI is negative for acute process. Try to avoid [place], possibly pleuritic headache. Tylenol as needed. Consider Fioricet if no improvement. 3. Sepsis, bacteremia: Blood cultures 04/28 and 04/29 showed polymicrobial infection. Appreciate infectious disease recommendations. CT thorax and CT abdomen/pelvis show no apparent abscess or septic emboli. Repeat cultures 05/03 are negative x5 days. Continue IV antibiotics until 05/13. 4. Transaminitis: Likely secondary to alcohol, hepatitis C. Improving. 5. GI prophylaxis: Protonix. 6. DVT prophylaxis: SCDs, heparin. 7. Dizziness: Non-orthostatic. Improved. 8. Superficial thrombophlebitis: From IV. Warm compresses and ibuprofen. Written by Patrick Brennan, acting as scribe for Dr. Lorenzo on 05/13/16 at 14:40. The documentation accurately reflects the work performed [id number] by in on at 1440. Discharge Planning Difficulties with SNF placement. Plan for completion of IV antibiotics 05/13. Cleared by PT, no [facility] PT needed. Anticipate discharge 05/14. Problem Qualifiers (1) Alcohol intoxication: Qualified Code: F10.129 - Alcohol intoxication, with unspecified complication (2) Hypothermia: Qualified Code: T68.XXXA - Hypothermia, initial encounter (3) Wound abscess: Qualified Code: T81.4XXS - Wound abscess, sequela Patrick Brennan May 13, 2016 2:40 pm Tiffany Lorenzo DO May 13, 2016 5:33 pm
[2016-05-13] MEDS ORDERED: IBUPROFEN 400 MG TAB PO PRN (15:00)
[2016-05-13] MEDS: REMOVE OLD NICODERM (NICOTINE) PATCH TD SCH (21:00)
[2016-05-14] VITALS: BP 110/70; PULSE 84; RESP 20; TEMP 98.3; O2SAT 98
[2016-05-14] MEDS: ACETAMINOPHEN/HYDROcodone 325 MG/10 MG TAB PO PRN ×2 (03:24→09:35)
[2016-05-14] MEDS: ACETAMINOPHEN/HYDROcodone 325 MG/5 MG TAB PO PRN (03:30)
[2016-05-14 04:00] VITALS: BP 112/70; PULSE 83; RESP 20; TEMP 98.3; O2SAT 98
[2016-05-14] MEDS: CHLORHEXIDINE GLUCONATE 2 % 1 PACK (2 CLOTHS) TOP SCH (04:00)
[2016-05-14] MEDS: HEPARIN SODIUM - SQ 10,000 UNITS/ML VIAL SQ SCH (07:00)
[2016-05-14 08:00] VITALS: BP 125/69; PULSE 96; RESP 18; TEMP 98.1; O2SAT 98
[2016-05-14] MEDS: DOCUSATE SODIUM 100 MG CAP PO SCH (09:35)
[2016-05-14] MEDS: PANTOPRAZOLE SOD 40 MG DELAYED RELEASE TAB PO SCH (09:35)
[2016-05-14] MEDS: NICOTINE 14 MG/24 HR PATCH TD SCH (09:35)
[2016-05-14] MEDS ORDERED: HYDR-3583 PO (10:13)
[2016-05-14] MEDS ORDERED: IBUP400T20 PO (10:13)
[2016-05-14] MEDS ORDERED: PANT40TA3 PO (10:13)
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
== END 2016-05-14 12:06 | disposition home or self-care (01) | DRG 872 ==
LOC: NEPE 13:51 → NEDA 16:16 → N03B 21:03 → N05A 05-01
PROVIDERS: ADMIT Internal Medicine Critical Care Medicine; ATTEND Hospitalist
DX: A41.02 Sepsis due to Methicillin resistant Staphylococcus aureus (principal); E87.0 Hyperosmolality and hypernatremia; F10.221 Alcohol dependence with intoxication delirium; E87.2 Acidosis; T68.XXXA Hypothermia, initial encounter; T80.1XXA Vascular complications following infusion, transfusion and therapeutic injection, initial encounter; I80.8 Phlebitis and thrombophlebitis of other sites; B19.20 Unspecified viral hepatitis C without hepatic coma; A41.81 Sepsis due to Enterococcus; A41.59 Other Gram-negative sepsis; Y90.8 Blood alcohol level of 240 mg/100 ml or more; E87.6 Hypokalemia; I10 Essential (primary) hypertension; R51 Headache; R00.1 Bradycardia, unspecified; K70.30 Alcoholic cirrhosis of liver without ascites; R42 Dizziness and giddiness; F17.210 Nicotine dependence, cigarettes, uncomplicated
CPT/HCPCS: 36600; 70450; 70551; 71010; 71260; 74177; 76937; 80048; 80053; 80074; 80202; 80307; 80320; 80329; 81001; 82140; 82533; 82550; 82565; 82948; 83605; 83690; 83735; 84100; 84132; 84443; 84484; 85007; 85025; 85027; 85610; 85730; 86140; 86403; 86703; 87040; 87077; 87086; 87147; 87186; 87205; 87641; 93005; 93306; 94150; 94640; 94664; 96360; C9113; G0480; J0692; J1644; J2060; J2270; J2543; J3370; J3411; J7030; J7040; J7120; Q9963; Q9967

== ENCOUNTER → 2016-09-24 | Outpatient (CLI) | payer OTHER ==
[~2016-09-24] MED LIST changes: -HYDR-3516 PO; +HYDR-3583 PO; +IBUP400T20 PO; +PANT40TA3 PO
--- NOTE | 2016-09-24 11:29 | EKG ---
Date Performed: 09/24/2016 Time Performed: 10:18:28 PTAGE: 55 years EKG: Sinus rhythm . Left axis deviation Abnormal ECG COMPARED TO PRIOR ELECTROCARDIOGRAM, Nonspecific T wave changes paz ve resolved. PREVIOUS TRACING : 04/28/2016 14.17 DOCTOR: Mason Wheeler Interpretating Date/Time 09/24/2016 11:28:16
== END ==
LOC: HCAV 10:11
PROVIDERS: ATTEND Orthopaedic Surgery Sports Medicine
DX: Z01.810 Encounter for preprocedural cardiovascular examination (principal)
CPT/HCPCS: 93005

== ENCOUNTER 2016-11-27 01:54 | Emergency (ER) | payer OTHER ==
[~2016-11-27] VITALS: Ht 177.8 cm; Wt 86.4 kg
[2016-11-27 01:58] VITALS: BP 112/62; PULSE 86; RESP 18; TEMP 98.3; O2SAT 94
[2016-11-27] MEDS ORDERED: LIDOCAINE HCL 1% 50 ML VIAL ONE (03:15)
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
[2016-11-27] MEDS ORDERED: LIDOCAINE HCL 1% 50 ML VIAL INFIL ONE (03:30)
[2016-11-27] MEDS ORDERED: HYDR-3533 PO (04:18)
[2016-11-27] MEDS ORDERED: AUGM875T3 PO (04:18)
[2016-11-27] MEDS ORDERED: ACETAMINOPHEN/HYDROcodone 325 MG/5 MG TAB PO ONE (04:30)
== END 2016-11-27 04:42 | disposition home or self-care (01) ==
LOC: NEPD 01:54
DX: S02.32XA Fracture of orbital floor, left side, initial encounter for closed fracture (principal); S01.112A Laceration without foreign body of left eyelid and periocular area, initial encounter; F10.129 Alcohol abuse with intoxication, unspecified; V13.4XXA Pedal cycle driver injured in collision with car, pick-up truck or van in traffic accident, initial encounter; Y93.55 Activity, bike riding; Y92.410 Unspecified street and highway as the place of occurrence of the external cause
CPT/HCPCS: 12013; 70450; 70486; 72125; 96372; 99285; J0696

== ENCOUNTER 2017-08-07 00:33 | Emergency (ER) | payer OTHER ==
[2017-08-07] VITALS (7 sets, daily range): BP systolic 106–121; BP diastolic 54–78; PULSE 78–86; RESP 16–20; TEMP 97.8–98; O2SAT 95–100
[~2017-08-07] VITALS: Ht 177.8 cm; Wt 86.4 kg
[~2017-08-07 00:33] MED LIST changes: +AUGM875T3 PO; +HYDR-3533 PO; +IBUP1TAB5 PO; -IBUP400T20 PO
[2017-08-07 01:11] LABS: AUTOMATED NEUTROPHIL # 2.1 TH/MM3 (1.8-7.7); BASOPHIL # 0.1 TH/MM3 (0-0.2); BASOPHIL % 0.9 % (0.0-2.0); EOSINOPHIL # 0.2 TH/MM3 (0-0.4); EOSINOPHIL % 2.1 % (0.0-4.0); HEMATOCRIT 48.3 % (39.0-51.0); HEMOGLOBIN 16.5 GM/DL (13.0-17.0); MEAN CELL VOLUME 89.1 FL (80.0-100.0); MEAN CORPUSCULAR HEMOGLOBIN 30.4 PG (27.0-34.0); MEAN CORPUSCULAR HGB CONC 34.2 % (32.0-36.0); MEAN PLATELET VOLUME 6.8 FL (7.0-11.0); MONO % 14.2 % (0.0-8.0); MONOCYTE # 1.1 TH/MM3 (0-0.9); NEUT % 27.8 % (16.0-70.0); PLATELET COUNT 245 TH/MM3 (150-450); RED BLOOD COUNT 5.42 MIL/MM3 (4.50-5.90); RED CELL DISTRIBUTION WIDTH 16.9 % (11.6-17.2); WHITE BLOOD COUNT 7.4 TH/MM3 (4.0-11.0)
[2017-08-07 01:19] LABS: CHLORIDE 110 MEQ/L (98-107); SODIUM (NA) 145 MEQ/L (136-145)
[2017-08-07 01:22] LABS: CALCIUM 8.3 MG/DL (8.5-10.1)
[2017-08-07 01:23] LABS: ALBUMIN 3.7 GM/DL (3.4-5.0); BICARBONATE 27.4 MEQ/L (21.0-32.0); BLOOD UREA NITROGEN 7 MG/DL (7-18); GLUCOSE,RANDOM 106 MG/DL (74-106)
[2017-08-07 01:26] LABS: AST (GOT) 64 U/L (15-37); GLOMERULAR FILTRATION RATE 99 ML/MIN (>89)
[2017-08-07 01:27] LABS: ALT (GPT) 64 U/L (12-78); TOTAL BILIRUBIN ADULT 0.7 MG/DL (0.2-1.0); TOTAL PROTEIN 8.1 GM/DL (6.4-8.2)
[2017-08-07 01:29] LABS: ALKALINE PHOSPHATASE 98 U/L (45-117)
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
[2017-08-07] MEDS ORDERED: HALOPERIDOL LACTATE 5 MG/ML AMP IM ONE (01:45)
[2017-08-07] MEDS: HALOPERIDOL LACTATE 5 MG/ML AMP IM ONE (01:49)
[2017-08-07] MEDS: THIAMINE INJ 100 MG in SODIUM CHLORIDE 0.9% INJ 100 ML IV ONE (03:15)
[2017-08-07] MEDS: SODIUM CHLOR 0.9% 1000 ML INJ 1,000 ML IV ONE (03:35)
--- NOTE | 2017-08-07 03:57 | RADRPT ---
EXAM DATE/TIME: 08/07/2017 03:19 [facility] COMPARISON: CT BRAIN W/O CONTRAST, November 27, 2016, 2:56. INDICATIONS : Altered mental status. RADIATION DOSE: 55.20 CTDIvol (mGy) MEDICAL HISTORY : Hypertension. ETOH abuse SURGICAL HISTORY : None. ENCOUNTER: Initial ACUITY: 1 day PAIN SCALE: Non-responsive LOCATION: cranial TECHNIQUE: Multiple contiguous axial images were obtained of the head. Using automated exposure control and adj ustment of the mA and/or kV according to patient size, radiation dose was kept as low as reasonably a chievable to obtain optimal diagnostic quality images. DICOM format image data is available electro nically for review and comparison. FINDINGS: CEREBRUM: The ventricles are normal for age. No evidence of midline shift, mass lesion, hemorrhage or acute in farction. No extra-axial fluid collections are seen. POSTERIOR FOSSA: The cerebellum and brainstem are intact. The 4th ventricle is midline. The cerebellopontine angle i s unremarkable. EXTRACRANIAL: The visualized portion of the orbits is intact. SKULL: The calvaria is intact. No evidence of skull fracture. CONCLUSION: Negative noncontrast CT Bubba Quiroz MD on August 07, 2017 at 3:54 Board Certified Radiologist. This report was verified electronically.
== END 2017-08-07 11:10 | disposition home or self-care (01) ==
LOC: PHED 00:33
DX: F10.129 Alcohol abuse with intoxication, unspecified (principal); Y90.8 Blood alcohol level of 240 mg/100 ml or more; I10 Essential (primary) hypertension; F17.200 Nicotine dependence, unspecified, uncomplicated
CPT/HCPCS: 70450; 80053; 80307; 85025; 96365; 96372; 99285; J1630; J3411; J7030

== ENCOUNTER 2017-08-07 16:59 | Emergency (ER) | payer OTHER ==
[2017-08-07 17:00] VITALS: BP 85/48; PULSE 88; RESP 18; TEMP 98.4; O2SAT 96
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
[2017-08-07] MEDS: THIAMINE INJ 100 MG in SODIUM CHLORIDE 0.9% INJ 100 ML IV ONE (18:00)
[2017-08-07] MEDS: SODIUM CHLOR 0.9% 1000 ML INJ 1,000 ML IV ONE (18:00)
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
[2017-08-07 18:10] VITALS: BP 111/72; PULSE 76; RESP 18; O2SAT 95
[2017-08-07 19:15] VITALS: BP 122/64; PULSE 87; RESP 16; O2SAT 98
[2017-08-07 20:45] VITALS: BP 113/83; PULSE 87; RESP 16; O2SAT 99
== END 2017-08-07 21:08 | disposition home or self-care (01) ==
LOC: PHED 16:59
DX: F10.129 Alcohol abuse with intoxication, unspecified (principal); I95.9 Hypotension, unspecified; I10 Essential (primary) hypertension; F17.200 Nicotine dependence, unspecified, uncomplicated
CPT/HCPCS: 70450; 96365; 99284; J3411; J7030